=== PATIENT | male | born 1980 | race Caucasian/White ===

== ENCOUNTER 2020-07-22 12:45 | Emergency (ER) | payer OTHER, MEDICAID, SELFPAY ==
[2020-07-22 12:49] VITALS: BP 117/83; PULSE 99; RESP 14; TEMP 36.5; O2SAT 98; BMI 20.4
[2020-07-22 13:15] LABS: Ur Creatinine Normal (Normal); Ur Specific Gravity Normal (Normal); Urine Tetrahydrocannabinol Negative (Negative); Urine pH Normal (Normal)
[2020-07-22 13:16] LABS: UR Morphine/Opiate cutoff 300 Negative (Negative); Urine Amphetamines Negative (Negative); Urine Barbiturates Negative (Negative); Urine Benzodiazepines Negative (Negative); Urine Cocaine Negative (Negative); Urine MDMA Negative (Negative); Urine Methadone Negative (Negative); Urine Methamphetamines Negative (Negative); Urine Oxycodone Negative (Negative); Urine Phencyclidine Negative (Negative); Urine Tricyclic Antidepressant Negative (Negative)
[2020-07-22 13:26] LABS: Add Manual Diff / Slide Review NO; Basophils Absolute Auto 100 /uL (0-100); Basophils Percent Auto 0.6 % (0-2); Eosinophils Absolute Auto 200 /uL (0-450); Eosinophils Percent Auto 2.1 % (2-4); Hematocrit 50.9 % (41-53); Hemoglobin 17.3 g/dL (13.5-17.5); Lymphocytes Absolute Auto 2500 /uL (1100-4500); Lymphocytes Percent Auto 27.4 % (25-40); Mean Corpuscular HGB Conc 33.9 % (30-36); Mean Corpuscular Volume 88.4 fL (80-100); Monocytes Absolute Auto 600 /uL (0-900); Neutrophils Absolute Auto 5900 /uL (1500-7000); Neutrophils Percent Auto 63.9 % (50-75); Platelet Count 191 X10^3/uL (150-400); Red Blood Cell Count 5.76 X10^6/uL (4.5-5.9); Red Cell Distribution Width 14.4 % (11.6-14.8); White Blood Cell Count 9.2 X10^3/uL (4.5-11.0)
--- NOTE | 2020-07-22 13:31 | PC.NURSE ---
Addendum entered by Stephanie Ariza R.N. 07/22/20 14:48: Pt in room talking with [employer]. Pt states it is okay to talk with dad Aries about visit/plan of care. Original Note: Pt drove self to ED, followed by his father in another vehicle. Reports history of Bipolar with depressive episodes increasing/getting worse for the past few months. Pt is crying/tearful, openly talking about situation and verbally expresses wishes to get help if there is something available. Lives in [place], here visiting parents. Pt placed in hospital provided scrubs, belongings placed in ED cabinet, ice water provided and meal tray ordered. 1:1 supervision
[2020-07-22 13:38] LABS: Acetaminophen < 10 ug/mL (10-30); Alanine Aminotransferase 14 IU/L (<50); Albumin 4.4 g/dL (3.5-5.0); Albumin Globulin Ratio 1.5 (1.0-2.8); Alkaline Phosphatase 115 U/L (38-126); Aspartate Aminotransferase 25 IU/L (17-59); BUN Creatinine Ratio 11.9 (6-22); Bilirubin Total 0.5 mg/dL (0.2-1.3); Blood Urea Nitrogen 7 mg/dL (9-20); Calcium 9.3 mg/dL (8.4-10.2); Carbon Dioxide 27 mmol/L (22-32); Chloride 98 mmol/L (98-107); Estimated Glomerular Filt Rate > 60.0 mL/min (>60); Ethanol (ETOH) 142 mg/dL; Globulin 2.9 g/dL (1.7-4.1); Glucose 302 mg/dL (70-100); HEMOLYSIS < 15 (0-50); Potassium 4.3 mmol/L (3.4-5.1); Salicylate < 1.0 mg/dL (<20); Sodium 135 mmol/L (137-145); Total Protein 7.3 g/dL (6.3-8.2)
[2020-07-22] MEDS: INSULIN REGULAR 100 UNIT/ML 3 ML VIAL SUBCUT (13:52)
[2020-07-22 13:56] LABS: COVID19 -Nasal RAPID Negative (Negative)
[2020-07-22 14:03] LABS: Free T4, Direct Thyroxine 1.54 ng/dL (0.78-2.19)
[2020-07-22 14:17] LABS: Thyroid Stimulating Hormone 1.01 uIU/mL (0.47-4.68)
--- NOTE | 2020-07-22 14:49 | ED_ITS ---
HPI - Psych <NEELA Davenport-BC - Last Filed: 07/22/20 15:40> General Chief Complaint: Psychiatric Symptoms Stated Complaint: SI Time Seen by Provider: 07/22/20 13:01 Source: patient Mode of arrival: Ambulatory Limitations: no limitations History of Present Illness HPI Narrative: The patient is a 40-year-old male of bipolar, PTSD, alcohol use disorder, type 1 diabetes who presents with a chief complaint of suicidal ideations with a plan. He states he has a long history of depression, that Ebbs and flows. However the past few months have been especially difficult he states he has stopped taking all of his medications including his psychiatric medications and his insulin. He endorses hopelessness, a plan to drive into a stationary object such as a wall. He states the only reason he came here today is because his father was following him in a car. However he states he is mora ling to take any help we can offer. The patient overtly states that he ?I want to kill myself.He states he stopped taking his Lamictal, BuSpar, insulin for the past few months because he does not care anymore. States he is not eating or drinking well despite his mother cooking him ?delicious food.He states he is not sleeping very well, but is tired all the time. Denies physical pain. Related Data Previous Rx's Medication Instructions Recorded clonazepam [Klonopin] 1 mg PO SEE INSTRUCTIONS #90 tab 08/28/16 moxifloxacin [Vigamox] 1 drp [facility] QID #3 ml 09/11/16 lamotrigine 25 mg chewable 25 mg PO .COMPLEX #0 tab 02/09/18 dispersible tablet Allergies Allergy/AdvReac Type Severity Reaction Status Date / Time No Known Drug Allergies Allergy Verified 07/22/20 12:49 Review of Systems <NEELA Davenport-BC - Last Filed: 07/22/20 15:40> Review of Systems Narrative: GENERAL: Denies chills, fatigue, malaise, fever, sweats. HEENT: Denies sinus pain, ear pain, sore throat, difficulty swallowing, dizziness. RESPIRATORY: Denies dyspnea, cough, wheezing, hemoptysis, sputum. CARDIOVASCULAR: Denies chest pain, palpitations, orthopnea, edema, GASTROINTESTINAL: Denies nausea, vomiting, abdominal pain, diarrhea, constipation, melena. : Denies dysuria, frequency, incontinence, hematuria, urinary retention. MUSCULOSKELETAL: denies weakness, joint pain, or bony pain SKIN: See HPI NEUROLOGIC: Denies weakness, headache, numbness, change in speech, confusion, seizures, incoordination. PSYCHIATRIC: No concerning psychosocial issues. 12 point review of systems is negative except for those stated above Patient History <NEELA Davenport- - Last Filed: 07/22/20 15:40> Social History Smoking Status: Current every day smoker Smoking Status: Current every day smoker alcohol intake frequency: 3 or more drinks per day Alcohol type: beer, wine, hard liquor and other Exam <TRACY DavenportP- - Last Filed: 07/22/20 15:40> Narrative Exam Narrative: GENERAL: This is a well-nourished, well-developed patient, very tearful HEAD: Atraumatic. Normocephalic. No temporal or scalp tenderness. EYES: Pupils equal round and reactive. Extraocular motions intact. No scleral icterus. No injection or drainage. ENT: Nose without bleeding, purulent drainage or septal hematoma. Throat without erythema, tonsillar hypertrophy or exudate. Uvula midline. Airway patent. Poor dentition noted NECK: Trachea midline. No JVD or lymphadenopathy. Supple, nontender, no meningeal signs. CARDIOVASCULAR: Regular rate and rhythm without murmurs, gallops, or rubs. RESPIRATORY: Clear to auscultation. Breath sounds equal bilaterally. No wheezes, rales, or rhonchi. No cough. No increased respiratory effort. No accessory muscle use. GASTROINTESTINAL: Abdomen soft, non-tender, nondistended. No hepato- splenomegaly, or palpable masses. No guarding. EXTREMITIES: No clubbing, cyanosis, or edema. No joint tenderness, effusion, or edema noted. BACK: Nontender without deformity or crepitance. No flank tenderness. NEURO: AOx3. SKIN: No rash or erythema on visible skin Initial Vital Signs Initial Vital Signs: Vital Signs Temperature 97.7 F 07/22/20 12:49 Pulse Rate 99 H 07/22/20 12:49 Respiratory Rate 14 07/22/20 12:49 Blood Pressure 117/83 07/22/20 12:49 Pulse Oximetry 98 07/22/20 12:49 <Keturah Jane DO - Last Filed: 07/22/20 18:31> Initial Vital Signs Initial Vital Signs: Vital Signs Temperature 97.7 F 07/22/20 12:49 Pulse Rate 99 H 07/22/20 12:49 Respiratory Rate 14 07/22/20 12:49 Blood Pressure 117/83 07/22/20 12:49 Pulse Oximetry 98 07/22/20 12:49 Scores <HUNG Davenport - Last Filed: 07/22/20 15:40> GCS Ron coma scale eye opening: Spontaneous Ron coma scale verbal response: Orientated Prentice coma scale motor response: Obey commands Ron coma scale total score: 15 Course <HUNG Davenport - Last Filed: 07/22/20 15:40> Orders Ordered: ED Orders 07/22/20 12:57 Consult to [facility] - Bake Room Worker Stat 07/22/20 13:09 Urine Drug Screen, Rapid Stat 07/22/20 13:22 Acetaminophen Stat Complete Blood Count AUTO DIFF Stat Comprehensive Metabolic Panel Stat Ethanol (ETOH) Stat Free T4, Direct Thyroxine Stat Salicylate Stat Thyroid Stimulating Hormone Stat 07/22/20 13:35 COVID19 Stat Discontinued Medications Insulin Human Regular (Insulin Regular 100 Unit/Ml 3 Ml Vial) 3 unit SUBCUT NOW ONE Stop: 07/22/20 13:43 Last Admin: 07/22/20 13:52 Dose: 3 unit Documented by: NATALY Cosigned by: REYNALDO Lorazepam (Lorazepam 0.5 Mg Tablet) 0.5 mg PO NOW ONE Stop: 07/22/20 13:57 Last Admin: 07/22/20 15:39 Dose: 0.5 mg Documented by: NATALY Lorazepam (Lorazepam 0.5 Mg Tablet) 1 mg PO NOW ONE Stop: 07/22/20 16:53 Last Admin: 07/22/20 16:55 Dose: 1 mg Documented by: NATALY Nicotine (Nicotine 21 Mg Patch) 21 mg TOP NOW ONE Stop: 07/22/20 15:26 Last Admin: 07/22/20 15:39 Dose: 21 mg Documented by: NATALY Vital Signs Vital signs: Vital Signs - 8 hr 07/22/20 12:49 07/22/20 16:09 Temperature 97.7 F 97.6 F Pulse Rate 99 H 91 H Respiratory Rate 14 18 Blood Pressure 117/83 119/77 Pulse Oximetry 98 97 <Keturah Jane DO - Last Filed: 07/22/20 18:31> Orders Ordered: ED Orders 07/22/20 12:57 Consult to [facility] [employer] [facility] - Bake Room Worker Stat 07/22/20 13:09 Urine Drug Screen, Rapid Stat 07/22/20 13:22 Acetaminophen Stat Complete Blood Count AUTO DIFF Stat Comprehensive Metabolic Panel Stat Ethanol (ETOH) Stat Free T4, Direct Thyroxine Stat Salicylate Stat Thyroid Stimulating Hormone Stat 07/22/20 13:35 COVID19 Stat Discontinued Medications Insulin Human Regular (Insulin Regular 100 Unit/Ml 3 Ml Vial) 3 unit SUBCUT NOW ONE Stop: 07/22/20 13:43 Last Admin: 07/22/20 13:52 Dose: 3 unit Documented by: NATALY Cosigned by: REYNALDO Lorazepam (Lorazepam 0.5 Mg Tablet) 0.5 mg PO NOW ONE Stop: 07/22/20 13:57 Last Admin: 07/22/20 15:39 Dose: 0.5 mg Documented by: NATALY Lorazepam (Lorazepam 0.5 Mg Tablet) 1 mg PO NOW ONE Stop: 07/22/20 16:53 Last Admin: 07/22/20 16:55 Dose: 1 mg Documented by: NATALY Nicotine (Nicotine 21 Mg Patch) 21 mg TOP NOW ONE Stop: 07/22/20 15:26 Last Admin: 07/22/20 15:39 Dose: 21 mg Documented by: NATALY Vital Signs Vital signs: Vital Signs - 8 hr 07/22/20 12:49 07/22/20 16:09 Temperature 97.7 F 97.6 F Pulse Rate 99 H 91 H Respiratory Rate 14 18 Blood Pressure 117/83 119/77 Pulse Oximetry 98 97 MDM - Psych <HUNG Davenport - Last Filed: 07/22/20 15:40> Lab Data Result diagrams: 07/22/20 13:22 07/22/20 13:22 Labs: Lab Results 07/22/20 07/22/20 07/22/20 Range/Units 13:09 13:22 13:22 WBC 9.2 (4.5-11.0) X10^3/uL RBC 5.76 (4.5-5.9) X10^6/uL Hgb 17.3 (13.5-17.5) g/dL Hct 50.9 (41-53) % MCV 88.4 (80-100) fL MCH 30.0 (26-34) PG MCHC 33.9 (30-36) % RDW 14.4 (11.6-14.8) % Plt Count 191 (150-400) X10^3/uL Neut % (Auto) 63.9 (50-75) % Lymph % (Auto) 27.4 (25-40) % [place] % (Auto) 6.0 (3-14) % Eos % (Auto) 2.1 (2-4) % Baso % (Auto) 0.6 (0-2) % Neut # (Auto) 5900 (8034-9933) /uL Lymph # (Auto) 2500 (0443-1491) /uL [place] # (Auto) 600 (0-900) /uL Eos # (Auto) 200 (0-450) /uL Baso # (Auto) 100 (0-100) /uL Sodium 135 L (137-145) mmol/L Potassium 4.3 (3.4-5.1) mmol/L Chloride 98 (98-107) mmol/L Carbon Dioxide 27 (22-32) mmol/L BUN 7 L (9-20) mg/dL Creatinine 0.59 L (0.66-1.25) mg/dL Estimated GFR > 60.0 (>60) mL/min BUN/Creatinine Ratio 11.9 (6-22) Glucose 302 H (70-100) mg/dL Calcium 9.3 (8.4-10.2) mg/dL Total Bilirubin 0.5 (0.2-1.3) mg/dL AST 25 (17-59) IU/L ALT 14 (<50) IU/L Alkaline Phosphatase 115 (38-126) U/L Total Protein 7.3 (6.3-8.2) g/dL Albumin 4.4 (3.5-5.0) g/dL Globulin 2.9 (1.7-4.1) g/dL Albumin/Globulin Ratio 1.5 (1.0-2.8) TSH (0.47-4.68) uIU/mL Free T4 (0.78-2.19) ng/dL Salicylates < 1.0 (<20) mg/dL U Opiates 300ng/mL cut Negative (Negative) Ur Oxycodone Screen Negative (Negative) Urine Methadone Screen Negative (Negative) Acetaminophen < 10 L (10-30) ug/mL Ur Barbiturates Screen Negative (Negative) U Tricyclic Antidepress Negative (Negative) Ur Phencyclidine Scrn Negative (Negative) Ur Amphetamines Screen Negative (Negative) U Methamphetamines Scrn Negative (Negative) Ur MDMA Scrn (Ecstasy) Negative (Negative) U Benzodiazepines Scrn Negative (Negative) Urine Cocaine Screen Negative (Negative) U Marijuana (THC) Screen Negative (Negative) Ethyl Alcohol 142 H ( - 10) mg/dL SARS-CoV-2 (PCR) (Negative) 07/22/20 07/22/20 Range/Units 13:22 13:35 WBC (4.5-11.0) X10^3/uL RBC (4.5-5.9) X10^6/uL Hgb (13.5-17.5) g/dL Hct (41-53) % MCV (80-100) fL MCH (26-34) PG MCHC (30-36) % RDW (11.6-14.8) % Plt Count (150-400) X10^3/uL Neut % (Auto) (50-75) % Lymph % (Auto) (25-40) % [place] % (Auto) (3-14) % Eos % (Auto) (2-4) % Baso % (Auto) (0-2) % Neut # (Auto) (3345-3786) /uL Lymph # (Auto) (1775-0564) /uL [place] # (Auto) (0-900) /uL Eos # (Auto) (0-450) /uL Baso # (Auto) (0-100) /uL Sodium (137-145) mmol/L Potassium (3.4-5.1) mmol/L Chloride (98-107) mmol/L Carbon Dioxide (22-32) mmol/L BUN (9-20) mg/dL Creatinine (0.66-1.25) mg/dL Estimated GFR (>60) mL/min BUN/Creatinine Ratio (6-22) Glucose (70-100) mg/dL Calcium (8.4-10.2) mg/dL Total Bilirubin (0.2-1.3) mg/dL AST (17-59) IU/L ALT (<50) IU/L Alkaline Phosphatase (38-126) U/L Total Protein (6.3-8.2) g/dL Albumin (3.5-5.0) g/dL Globulin (1.7-4.1) g/dL Albumin/Globulin Ratio (1.0-2.8) TSH 1.01 (0.47-4.68) uIU/mL Free T4 1.54 (0.78-2.19) ng/dL Salicylates (<20) mg/dL U Opiates 300ng/mL cut (Negative) Ur Oxycodone Screen (Negative) Urine Methadone Screen (Negative) Acetaminophen (10-30) ug/mL Ur Barbiturates Screen (Negative) U Tricyclic Antidepress (Negative) Ur Phencyclidine Scrn (Negative) Ur Amphetamines Screen (Negative) U Methamphetamines Scrn (Negative) Ur MDMA Scrn (Ecstasy) (Negative) U Benzodiazepines Scrn (Negative) Urine Cocaine Screen (Negative) U Marijuana (THC) Screen (Negative) Ethyl Alcohol ( - 10) mg/dL SARS-CoV-2 (PCR) Negative (Negative) Point of Care Testing Glucose POC 209 Urine Dip Bedside Urine Glucose 1000 mg/dl Bedside Urine Bilirubin - Negative Bedside Urine Ketone - Negative Urine Specific Felicity 1.015 Bedside Urine Occult Blood - Negative Bedside Urine pH 6 Bedside Urine Protein - Negative Bedside Urine Urobilinogen - Negative Bedside Urine Nitrite - Negative Bedside Urine Leukocytes - Negative Esterase MDM Narrative Medical decision making narrative: The patient is a 40-year-old male with history of bipolar disorder, alcohol abuse, PTSD who presents with a chief complaint of suicidal ideation with a plan to drive into a stationary object. He is tearful, voluntary at this point. However he is high risk given his history, the fact that he has been off of his medications for several months. He was seen and evaluated by Estevan NAVA, who feels as though voluntary placement is needed at this time. I am in accordance with this. I would not feel comfortable allowing the patient to leave at this point time given his hopelessness, history, and suicidal ideation with plan. Clearance labs were d rawn, coronavirus test completed. Patient signed out to Dr Jane at 15:40 pending placement. <Keturah Jane, DO - Last Filed: 07/22/20 18:31> Lab Data Labs: Lab Results 07/22/20 07/22/20 07/22/20 Range/Units 13:09 13:22 13:22 WBC 9.2 (4.5-11.0) X10^3/uL RBC 5.76 (4.5-5.9) X10^6/uL Hgb 17.3 (13.5-17.5) g/dL Hct 50.9 (41-53) % MCV 88.4 (80-100) fL MCH 30.0 (26-34) PG MCHC 33.9 (30-36) % RDW 14.4 (11.6-14.8) % Plt Count 191 (150-400) X10^3/uL Neut % (Auto) 63.9 (50-75) % Lymph % (Auto) 27.4 (25-40) % [place] % (Auto) 6.0 (3-14) % Eos % (Auto) 2.1 (2-4) % Baso % (Auto) 0.6 (0-2) % Neut # (Auto) 5900 (2944-1996) /uL Lymph # (Auto) 2500 (3838-8955) /uL [place] # (Auto) 600 (0-900) /uL Eos # (Auto) 200 (0-450) /uL Baso # (Auto) 100 (0-100) /uL Sodium 135 L (137-145) mmol/L Potassium 4.3 (3.4-5.1) mmol/L Chloride 98 (98-107) mmol/L Carbon Dioxide 27 (22-32) mmol/L BUN 7 L (9-20) mg/dL Creatinine 0.59 L (0.66-1.25) mg/dL Estimated GFR > 60.0 (>60) mL/min BUN/Creatinine Ratio 11.9 (6-22) Glucose 302 H (70-100) mg/dL Calcium 9.3 (8.4-10.2) mg/dL Total Bilirubin 0.5 (0.2-1.3) mg/dL AST 25 (17-59) IU/L ALT 14 (<50) IU/L Alkaline Phosphatase 115 (38-126) U/L Total Protein 7.3 (6.3-8.2) g/dL Albumin 4.4 (3.5-5.0) g/dL Globulin 2.9 (1.7-4.1) g/dL Albumin/Globulin Ratio 1.5 (1.0-2.8) TSH (0.47-4.68) uIU/mL Free T4 (0.78-2.19) ng/dL Salicylates < 1.0 (<20) mg/dL U Opiates 300ng/mL cut Negative (Negative) Ur Oxycodone Screen Negative (Negative) Urine Methadone Screen Negative (Negative) Acetaminophen < 10 L (10-30) ug/mL Ur Barbiturates Screen Negative (Negative) U Tricyclic Antidepress Negative (Negative) Ur Phencyclidine Scrn Negative (Negative) Ur Amphetamines Screen Negative (Negative) U Methamphetamines Scrn Negative (Negative) Ur MDMA Scrn (Ecstasy) Negative (Negative) U Benzodiazepines Scrn Negative (Negative) Urine Cocaine Screen Negative (Negative) U Marijuana (THC) Screen Negative (Negative) Ethyl Alcohol 142 H ( - 10) mg/dL SARS-CoV-2 (PCR) (Negative) 07/22/20 07/22/20 Range/Units 13:22 13:35 WBC (4.5-11.0) X10^3/uL RBC (4.5-5.9) X10^6/uL Hgb (13.5-17.5) g/dL Hct (41-53) % MCV (80-100) fL MCH (26-34) PG MCHC (30-36) % RDW (11.6-14.8) % Plt Count (150-400) X10^3/uL Neut % (Auto) (50-75) % Lymph % (Auto) (25-40) % [place] % (Auto) (3-14) % Eos % (Auto) (2-4) % Baso % (Auto) (0-2) % Neut # (Auto) (8436-1608) /uL Lymph # (Auto) (2906-4270) /uL [place] # (Auto) (0-900) /uL Eos # (Auto) (0-450) /uL Baso # (Auto) (0-100) /uL Sodium (137-145) mmol/L Potassium (3.4-5.1) mmol/L Chloride (98-107) mmol/L Carbon Dioxide (22-32) mmol/L BUN (9-20) mg/dL Creatinine (0.66-1.25) mg/dL Estimated GFR (>60) mL/min BUN/Creatinine Ratio (6-22) Glucose (70-100) mg/dL Calcium (8.4-10.2) mg/dL Total Bilirubin (0.2-1.3) mg/dL AST (17-59) IU/L ALT (<50) IU/L Alkaline Phosphatase (38-126) U/L Total Protein (6.3-8.2) g/dL Albumin (3.5-5.0) g/dL Globulin (1.7-4.1) g/dL Albumin/Globulin Ratio (1.0-2.8) TSH 1.01 (0.47-4.68) uIU/mL Free T4 1.54 (0.78-2.19) ng/dL Salicylates (<20) mg/dL U Opiates 300ng/mL cut (Negative) Ur Oxycodone Screen (Negative) Urine Methadone Screen (Negative) Acetaminophen (10-30) ug/mL Ur Barbiturates Screen (Negative) U Tricyclic Antidepress (Negative) Ur Phencyclidine Scrn (Negative) Ur Amphetamines Screen (Negative) U Methamphetamines Scrn (Negative) Ur MDMA Scrn (Ecstasy) (Negative) U Benzodiazepines Scrn (Negative) Urine Cocaine Screen (Negative) U Marijuana (THC) Screen (Negative) Ethyl Alcohol ( - 10) mg/dL SARS-CoV-2 (PCR) Negative (Negative) Point of Care Testing Glucose POC 209 Urine Dip Bedside Urine Glucose 1000 mg/dl Bedside Urine Bilirubin - Negative Bedside Urine Ketone - Negative Urine Specific Felicity 1.015 Bedside Urine Occult Blood - Negative Bedside Urine pH 6 Bedside Urine Protein - Negative Bedside Urine Urobilinogen - Negative Bedside Urine Nitrite - Negative Bedside Urine Leukocytes - Negative Esterase MDM Narrative Medical decision making narrative: Patient remains voluntary and has been accepted at [facility]. He did require some Ativan to help with anxiety Signed out to Dr. Rajput Discharge Plan Departure Prescriptions: No Action clonazepam [Klonopin] 1 MG tablet 1 mg PO SEE INSTRUCTIONS Qty: 90 RF: 1 moxifloxacin [Vigamox] 0.5 % drops 1 drp [facility] QID Qty: 3 RF: 0 lamotrigine 25 mg tablet, chewable dispersible 25 mg PO .COMPLEX Qty: 0 RF: 2 <Keturah Jane, DO - Last Filed: 07/22/20 18:31> Cosign ED Attending Cossonamature Attestation: I was immediately available in the department for consultation. Documentation has been reviewed. I agree with assessment and plan.
[2020-07-22] MEDS: LORazepam 0.5 MG TABLET PO (15:39)
[2020-07-22] MEDS: NICOTINE 21 MG PATCH TOP (15:39)
--- NOTE | 2020-07-22 15:55 | CM.SWNOTE ---
SENIOR IT ENGINEER Assessment SENIOR IT ENGINEER - Bait Packer Assessment SENIOR IT ENGINEER - Bait Packer Assessment Start: 07/22/20 15:27 Freq: Status: Active Protocol: Document 07/22/20 15:27 BEATRIS (Rec: 07/22/20 15:55 BEATRIS [id number]) SENIOR IT ENGINEER/Bait Packer Assessment Time Spent with Patient Start date 07/22/20 Visit Start Time 14:00 End date 07/22/20 Visit End Time 15:25 Total time Care Management spent on 85 patient visit-in minutes Mental Health Screening Include Onset, Duration, Intensity Presenting Problem Patient presents to ED for stated complaint of SI. Patient states he was planning to drive his car at 120mph into a solid structure. Patient explains was in the car and was about to attempt, but realized his father was following him in a different vehicle, and drove to the ED instead. Patient endorses hopelessness, depression, and seeing no purpose in living. Patient offers if someone handed me a gun and showed me how to use it, I would be . Precipitating Event(s) Patient has attempted suicide two other times in past 4 years. One attempt was with pills, and one was an attempt to drive his car into a structure. Patient struggles with gambling addiction and has lost more money than I've made to online gambling. Patient has hx of ETOH abuse, and relapsed after 6 months of sobriety in April,. Patient had consumed ETOH prior to arrival at ED. Patient Strengths Patient is polite, open, and very articulate, and shows sound insight into current presentation. Current Behavioral Health Provider(s) None. Include Facility, Provider, Ph. # Psych. Hx Mental Health and Chemical Patient has hx of depression, Dependency diagnosed bipolar, anxiety, and PTSD. Patient endorses that he does have issues with compulsive behavior, gambling addiction. Patient reports he has not taken medication for his psychiatric concerns in multiple months. Patient defines compulsive behavior as not being able to stop an action once he starts it and provides examples of staying up for 4 days straight writing a book or staying up for days gambling and losing. Patient states this compulsive behavior is self destructive. Patient has hx of ETOH abuse. Family Hx of Behavioral Abuse None. Psychiatric Hospitalizations (date(s)/ None. location) Psychosocial information & Support Patient is a 40 y/o male who Systems lives with his parents. 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 Patient explains that he loves his parents, but feels tension surrounding the idea that he has remained alive to spare them grief. School/Work Patient is currently unemployed. Mental Status Orientation (Person/Place/Time) Oriented x3 Stated Mood I don't want to be alive Affect (Congruent with Mood?) slightly euthymic, full range, slight incongruence Thought Content - Specify/Describe No obsessions, hallucinations Obsessions, Delusions, Hallucinations or delusions observed or reported. Thought Processes (Rkzlhun-Oqejvykn-Jlpc Logical-detailed Cbnxcmok-Cqevaxzc-Pklblzpzgz- Hkfvyqwmtiuioc-Zhnjrra-Kxjbhdgvpncs- Thought Blocking) Speech (Bebqqm-Pceu-Eyaglpi-Rapid-Soft- Normal Loud-Pressured) Motor (Btzpgg-Nidnbqunq-Cxzg-Other) Normal Insight (Lqrz-Xcbe-Ipdj/Limited) Good Judgement (Nksk-Nxpm-Dbmc/Limited) Poor Impulse Control (Adequate-Impaired) Adequate in interview Memory (Deijqgszh-Nbjrbb-Wotplf, Intact for interview, not Impaired-Intact) formally assessed Concentration (Intact-Impaired) Intact Attention (Intact-Impaired) Intact Behavior (Appropriate-Inappropriate) Appropriate Risk Assessment Suicidal Ideation (Plan) Yes Homicidal Ideation (Plan) No Comment Patient denies HI. Patient endorses SI with plan and means. Patient presents to this ED shortly after attempting suicide, but plan was thwarted due to father following patient's vehicle. Patient states he has had a plan to crash his car into a solid structure at high speed for 4 years. Patient explains that this is his method of choice because if my survival instinct kicks in, it will be too late, and that' s what I want. Intervention Intervention SENIOR IT ENGINEER meets with patient. 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 Patient reports he has felt suicidal on and off for the past 10 years, but states that it has been getting significantly worse during previous months. Patient reports previous suicide attempts, desire to discontinue living, and plan with means. SENIOR IT ENGINEER and patient discuss voluntary inpatient treatment. Patient states he is agreeable to voluntary placement at a hospital and is wanting help. At this time, due to suicidality with plan to use lethal means, lack of use of prescribed psychiatric medication, previous attempts, and patient-described compulsive self-destructive behavior, it is the recommendation of this SENIOR IT ENGINEER that patient receive inpatient hospitalization. SENIOR IT ENGINEER reviews this with ED providers Dr. Jane and BANG Davenport, both indicate agreement and understanding. Plan RA Plan SENIOR IT ENGINEER will seek inpatient bed for patient. BRANDY Flanagan
[2020-07-22 16:09] VITALS: BP 119/77; PULSE 91; RESP 18; TEMP 36.4; O2SAT 97
--- NOTE | 2020-07-22 16:19 | CM.SWNOTE ---
Addendum entered by Estevan Potts 07/22/20 18:14: CABINET FINISHER receives return call from Ila at [facility] informing CABINET FINISHER that patient has been accepted for admission to the co-occurring unit at [facility]. Details of transfer are placed in comments section of EMR and listed below: Accepted to [facility]. Accepting provider: Dr. Brown. Intake contact: Ila. Nurse to Nurse: [phone]. Check in time: 2230. CABINET FINISHER updates patient, RN Stephanie, DAKOTA Perez, and ED providers Dr. Rajput and Dr. Jane. A AND P MECHANIC/DAKOTA to arrange transport. Patient requests that patient's father-Aries be contacted and updated on plan, and assist patient with getting toiletries out of car. Aries's phone is [phone]. CABINET FINISHER calls Aries and leaves voicemail with transfer time and requests call back at [phone]. Pl: Patient to transfer to [facility] for inpatient psychiatric stabilization. BRANDY Flanagan Original Note: CABINET FINISHER note Following assessment, CABINET FINISHER calls [facility] seeking placement for patient. [facility] states they may be able to screen today, but would be unable to accept patient until tomorrow. CABINET FINISHER then calls [facility] and speaks to Ila. Ila completes phone screening and requests clinicals be faxed to [facility]. Ila informs CABINET FINISHER that [facility] does have open beds and will be able to screen patient today. CABINET FINISHER faxes clinical packet to [facility]. Pl: Coordinate with [facility] for potential transfer of care. BRANDY Flanagan
[2020-07-22] MEDS: LORazepam 0.5 MG TABLET 1 MG PO (16:55)
--- NOTE | 2020-07-22 18:00 | PC.NURSE ---
Patient has been dozing/sleeping intermittently since 15:45.
[2020-07-22 20:15] VITALS: BP 119/80; PULSE 101; RESP 17; TEMP 37.3; O2SAT 97
--- NOTE | 2020-07-22 20:18 | PC.NURSE ---
Patients brother is in room visiting and having a very serious conversation with him about his current mental status and potential repercussions his actions can cause.
--- NOTE | 2020-07-22 22:28 | ED_ITS ---
HPI - Psych General Chief Complaint: Psychiatric Symptoms Stated Complaint: SI Time Seen by Provider: 07/22/20 13:01 Source: patient Mode of arrival: Ambulatory Related Data Previous Rx's Medication Instructions Recorded clonazepam [Klonopin] 1 mg PO SEE INSTRUCTIONS #90 tab 08/28/16 moxifloxacin [Vigamox] 1 drp OPHTH QID #3 ml 09/11/16 lamotrigine 25 mg chewable 25 mg PO .COMPLEX #0 tab 02/09/18 dispersible tablet Allergies Allergy/AdvReac Type Severity Reaction Status Date / Time No Known Drug Allergies Allergy Verified 07/22/20 12:49 Patient History Social History Smoking Status: Current every day smoker Smoking Status: Current every day smoker alcohol intake frequency: 3 or more drinks per day Alcohol type: beer, wine, hard liquor and other Exam Initial Vital Signs Initial Vital Signs: Vital Signs Temperature 97.7 F 07/22/20 12:49 Pulse Rate 99 H 07/22/20 12:49 Respiratory Rate 14 07/22/20 12:49 Blood Pressure 117/83 07/22/20 12:49 Pulse Oximetry 98 07/22/20 12:49 Course Orders Ordered: ED Orders 07/22/20 13:35 COVID19 Stat Discontinued Medications Insulin Human Regular (Insulin Regular 100 Unit/Ml 3 Ml Vial) 3 unit SUBCUT NOW ONE Stop: 07/22/20 13:43 Last Admin: 07/22/20 13:52 Dose: 3 unit Documented by: NATALY Cosigned by: REYNALDO Lorazepam (Lorazepam 0.5 Mg Tablet) 0.5 mg PO NOW ONE Stop: 07/22/20 13:57 Last Admin: 07/22/20 15:39 Dose: 0.5 mg Documented by: NATALY Lorazepam (Lorazepam 0.5 Mg Tablet) 1 mg PO NOW ONE Stop: 07/22/20 16:53 Last Admin: 07/22/20 16:55 Dose: 1 mg Documented by: NATALY Nicotine (Nicotine 21 Mg Patch) 21 mg TOP NOW ONE Stop: 07/22/20 15:26 Last Admin: 07/22/20 15:39 Dose: 21 mg Documented by: NATALY Vital Signs Vital signs: Vital Signs - 8 hr 07/22/20 16:09 07/22/20 20:15 Temperature 97.6 F 99.1 F Pulse Rate 91 H 101 H Respiratory Rate 18 17 Blood Pressure 119/77 119/80 Pulse Oximetry 97 97 MDM - Psych Lab Data Result diagrams: 07/22/20 13:22 07/22/20 13:22 Labs: Lab Results 07/22/20 07/22/20 07/22/20 Range/Units 13:09 13:22 13:22 WBC 9.2 (4.5-11.0) X10^3/uL RBC 5.76 (4.5-5.9) X10^6/uL Hgb 17.3 (13.5-17.5) g/dL Hct 50.9 (41-53) % MCV 88.4 (80-100) fL MCH 30.0 (26-34) PG MCHC 33.9 (30-36) % RDW 14.4 (11.6-14.8) % Plt Count 191 (150-400) X10^3/uL Neut % (Auto) 63.9 (50-75) % Lymph % (Auto) 27.4 (25-40) % [place] % (Auto) 6.0 (3-14) % Eos % (Auto) 2.1 (2-4) % Baso % (Auto) 0.6 (0-2) % Neut # (Auto) 5900 (3101-2862) /uL Lymph # (Auto) 2500 (5890-9306) /uL [place] # (Auto) 600 (0-900) /uL Eos # (Auto) 200 (0-450) /uL Baso # (Auto) 100 (0-100) /uL Sodium 135 L (137-145) mmol/L Potassium 4.3 (3.4-5.1) mmol/L Chloride 98 (98-107) mmol/L Carbon Dioxide 27 (22-32) mmol/L BUN 7 L (9-20) mg/dL Creatinine 0.59 L (0.66-1.25) mg/dL Estimated GFR > 60.0 (>60) mL/min BUN/Creatinine Ratio 11.9 (6-22) Glucose 302 H (70-100) mg/dL Calcium 9.3 (8.4-10.2) mg/dL Total Bilirubin 0.5 (0.2-1.3) mg/dL AST 25 (17-59) IU/L ALT 14 (<50) IU/L Alkaline Phosphatase 115 (38-126) U/L Total Protein 7.3 (6.3-8.2) g/dL Albumin 4.4 (3.5-5.0) g/dL Globulin 2.9 (1.7-4.1) g/dL Albumin/Globulin Ratio 1.5 (1.0-2.8) TSH (0.47-4.68) uIU/mL Free T4 (0.78-2.19) ng/dL Salicylates < 1.0 (<20) mg/dL U Opiates 300ng/mL cut Negative (Negative) Ur Oxycodone Screen Negative (Negative) Urine Methadone Screen Negative (Negative) Acetaminophen < 10 L (10-30) ug/mL Ur Barbiturates Screen Negative (Negative) U Tricyclic Antidepress Negative (Negative) Ur Phencyclidine Scrn Negative (Negative) Ur Amphetamines Screen Negative (Negative) U Methamphetamines Scrn Negative (Negative) Ur MDMA Scrn (Ecstasy) Negative (Negative) U Benzodiazepines Scrn Negative (Negative) Urine Cocaine Screen Negative (Negative) U Marijuana (THC) Screen Negative (Negative) Ethyl Alcohol 142 H ( - 10) mg/dL SARS-CoV-2 (PCR) (Negative) 07/22/20 07/22/20 Range/Units 13:22 13:35 WBC (4.5-11.0) X10^3/uL RBC (4.5-5.9) X10^6/uL Hgb (13.5-17.5) g/dL Hct (41-53) % MCV (80-100) fL MCH (26-34) PG MCHC (30-36) % RDW (11.6-14.8) % Plt Count (150-400) X10^3/uL Neut % (Auto) (50-75) % Lymph % (Auto) (25-40) % [place] % (Auto) (3-14) % Eos % (Auto) (2-4) % Baso % (Auto) (0-2) % Neut # (Auto) (7423-8266) /uL Lymph # (Auto) (9275-7151) /uL [place] # (Auto) (0-900) /uL Eos # (Auto) (0-450) /uL Baso # (Auto) (0-100) /uL Sodium (137-145) mmol/L Potassium (3.4-5.1) mmol/L Chloride (98-107) mmol/L Carbon Dioxide (22-32) mmol/L BUN (9-20) mg/dL Creatinine (0.66-1.25) mg/dL Estimated GFR (>60) mL/min BUN/Creatinine Ratio (6-22) Glucose (70-100) mg/dL Calcium (8.4-10.2) mg/dL Total Bilirubin (0.2-1.3) mg/dL AST (17-59) IU/L ALT (<50) IU/L Alkaline Phosphatase (38-126) U/L Total Protein (6.3-8.2) g/dL Albumin (3.5-5.0) g/dL Globulin (1.7-4.1) g/dL Albumin/Globulin Ratio (1.0-2.8) TSH 1.01 (0.47-4.68) uIU/mL Free T4 1.54 (0.78-2.19) ng/dL Salicylates (<20) mg/dL U Opiates 300ng/mL cut (Negative) Ur Oxycodone Screen (Negative) Urine Methadone Screen (Negative) Acetaminophen (10-30) ug/mL Ur Barbiturates Screen (Negative) U Tricyclic Antidepress (Negative) Ur Phencyclidine Scrn (Negative) Ur Amphetamines Screen (Negative) U Methamphetamines Scrn (Negative) Ur MDMA Scrn (Ecstasy) (Negative) U Benzodiazepines Scrn (Negative) Urine Cocaine Screen (Negative) U Marijuana (THC) Screen (Negative) Ethyl Alcohol ( - 10) mg/dL SARS-CoV-2 (PCR) Negative (Negative) Point of Care Testing Glucose POC 209 Urine Dip Bedside Urine Glucose 1000 mg/dl Bedside Urine Bilirubin - Negative Bedside Urine Ketone - Negative Urine Specific Miranda 1.015 Bedside Urine Occult Blood - Negative Bedside Urine pH 6 Bedside Urine Protein - Negative Bedside Urine Urobilinogen - Negative Bedside Urine Nitrite - Negative Bedside Urine Leukocytes - Negative Esterase Discharge Plan Departure Patient Disposition: [facility] Clinical Impression: Suicidal ideation Prescriptions: No Action clonazepam [Klonopin] 1 MG tablet 1 mg PO SEE INSTRUCTIONS Qty: 90 RF: 1 moxifloxacin [Vigamox] 0.5 % drops 1 drp OPHTH QID Qty: 3 RF: 0 lamotrigine 25 mg tablet, chewable dispersible 25 mg PO .COMPLEX Qty: 0 RF: 2
== END 2020-07-22 21:22 | disposition short-term general hospital (02) ==
PROVIDERS: Nurse Practitioner Family; Emergency Provider Emergency Medicine
DX: R45.851 Suicidal ideations (principal); F10.129 Alcohol abuse with intoxication, unspecified; Y90.6 Blood alcohol level of 120-199 mg/100 ml; F31.9 Bipolar disorder, unspecified; E10.8 Type 1 diabetes mellitus with unspecified complications; F43.10 Post-traumatic stress disorder, unspecified; Z20.822 Contact with and (suspected) exposure to COVID-19
CPT/HCPCS: 36415; 80053; 80305; 80320; 80329; 81003; 82962; 84439; 84443; 85025; 87635; 96372; 99284; C9803; G0480

== ENCOUNTER 2020-08-06 16:44 | Emergency (ER) | payer OTHER, MEDICAID, SELFPAY ==
[2020-08-06 16:56] VITALS: BP 151/97; PULSE 118; RESP 16; TEMP 37.2; O2SAT 97; BMI 20.4
--- NOTE | 2020-08-06 17:16 | PC.NURSE ---
Spoke w/ Sheron (intake @ [facility]) who stated they are screening for tomorrow (Monday 08/07) They state that the alcohol / detox issues would not be a barrier. They asked that the provider medical clearance information be faxed to [phone] when available.
--- NOTE | 2020-08-06 17:20 | ED_ITS ---
HPI - Psych <Keturah Jane DO - Last Filed: 08/14/20 10:26> General Chief Complaint: Psychiatric Symptoms Stated Complaint: suicidal Time Seen by Provider: 08/06/20 16:47 Source: patient Mode of arrival: Ambulatory Limitations: no limitations History of Present Illness HPI Narrative: Patient is a 40-year-old male with history of type 1 diabetes, bipolar PTSD suicidal ideation depression presenting today voluntarily for suicidal ideation. July 22 where he was then sent to the [facility]. He states he was there for 4 days and then he left. He says he does not remember much of what happened may be partially because he was detoxing. He has since drink heavily since then. He has not had an alcoholic drink for about 13-15 hours. He has frequent thoughts of suicide but today the thoughts are quite severe, he states that he would drive his car into a stationary object as fast as he could. He is requesting placement at [facility] because they allow people to smoke. He has significant stressors but is unwilling to share them with me. He states that while he is drinking heavily he is not good about taking his medications. MD complaint: suicidal ideation and feels depressed History of same: Yes Relieving factors: none Related Data Home Medications Medication Instructions Recorded Confirmed lamotrigine 150 mg PO BEDTIME 08/06/20 08/06/20 Previous Rx's Medication Instructions Recorded clonazepam [Klonopin] 1 mg PO SEE INSTRUCTIONS #90 tab 08/28/16 Allergies Allergy/AdvReac Type Severity Reaction Status Date / Time No Known Drug Allergies Allergy Verified 07/22/20 12:49 Review of Systems <DO Beck Nugent Last Filed: 08/14/20 10:26> Review of Systems Narrative: GENERAL: Denies chills, fatigue, malaise, fever, sweats, travel HEENT: Denies sinus pain, ear pain, sore throat, difficulty swallowing, neck pain RESPIRATORY: Denies dyspnea, cough, wheezing, hemoptysis, sputum. CARDIOVASCULAR: Denies chest pain, palpitations, orthopnea, edema GASTROINTESTINAL: Denies nausea, vomiting, abdominal pain, diarrhea, constipation, melena. : Denies dysuria, frequency, incontinence, hematuria, urinary retention, flank pain. MUSCULOSKELETAL: Denies weakness, joint pain, or bony pain SKIN: No rash, no erythema, no pruritus NEUROLOGIC: Denies weakness, dizziness, headache, numbness, change in speech, confusion PSYCHIATRIC: See HPI 12 point review of systems is negative except for those stated above and HPI Patient History <Keturah Jane DO - Last Filed: 08/14/20 10:26> Medical History Alcoholism Bipolar affective disorder, current episode mild Diabetes Post traumatic stress disorder (PTSD) Social History Smoking Status: Current every day smoker Smoking Status: Current every day smoker alcohol intake frequency: 3 or more drinks per day Alcohol type: beer, wine, hard liquor and other Exam <Keturah Jane DO - Last Filed: 08/14/20 10:26> Initial Vital Signs Initial Vital Signs: Vital Signs Temperature 98.9 F 08/06/20 16:56 Pulse Rate 118 H 08/06/20 16:56 Respiratory Rate 16 08/06/20 16:56 Blood Pressure 151/97 H 08/06/20 16:56 Pulse Oximetry 97 08/06/20 16:56 GENERAL: Well-appearing, well-nourished and in no acute distress. CARDIOVASCULAR: peripheral pulses in tact, cap refill <2 sec RESPIRATORY: No respiratory distress, speaks in full sentences without difficulty EXTREMITIES: Normal range of motion, no clubbing or edema. Neurovascularly intact NEUROLOGICAL: Cranial nerves II through XII grossly intact. Normal gait and speech. SKIN: Warm, dry, no petechiae, no rashes or lesions. <Christina Escudero MD - Last Filed: 08/06/20 23:38> Narrative Exam Narrative: Patient independently examined Awake alert appropriate able speak in full sentences without pressured speech Mild tachycardia after 2 mg of oral Ativan Still complains of suicidal thoughts, anxiety Notes feelings of self clothing and hate that continue to progress. Continues to deny hallucinations Minimal physical signs of acute alcohol withdrawal Initial Vital Signs Initial Vital Signs: Vital Signs Temperature 98.9 F 08/06/20 16:56 Pulse Rate 118 H 08/06/20 16:56 Respiratory Rate 16 08/06/20 16:56 Blood Pressure 151/97 H 08/06/20 16:56 Pulse Oximetry 97 08/06/20 16:56 <Kyle [place], DO - Last Filed: 08/08/20 09:34> Initial Vital Signs Initial Vital Signs: Vital Signs Temperature 98.9 F 08/06/20 16:56 Pulse Rate 118 H 08/06/20 16:56 Respiratory Rate 16 08/06/20 16:56 Blood Pressure 151/97 H 08/06/20 16:56 Pulse Oximetry 97 08/06/20 16:56 <Khanh Raymundo, DO - Last Filed: 08/08/20 02:29> Initial Vital Signs Initial Vital Signs: Vital Signs Temperature 98.9 F 08/06/20 16:56 Pulse Rate 118 H 08/06/20 16:56 Respiratory Rate 16 08/06/20 16:56 Blood Pressure 151/97 H 08/06/20 16:56 Pulse Oximetry 97 08/06/20 16:56 Course <Keturah Jane DO - Last Filed: 08/14/20 10:26> Orders Ordered: Discontinued Medications Diphenhydramine HCl (Diphenhydramine 25 Mg Tablet) 25 mg PO NOW ONE Stop: 08/08/20 03:30 Last Admin: 08/08/20 05:00 Dose: Not Given Documented by: MELVIN Diphenhydramine HCl (Diphenhydramine 50 Mg/Ml Vial) 25 mg IM NOW ONE Stop: 08/08/20 03:31 Last Admin: 08/08/20 03:33 Dose: 25 mg Documented by: MELVIN Sodium Chloride (Normal Saline 0.9%) 1,000 mls @ 1,000 mls/hr IV BOLUS ONE Stop: 08/07/20 00:32 Last Infusion: 08/07/20 02:05 Dose: 0 mls/hr Documented by: Admin: 08/06/20 23:42 Dose: 1,000 mls/hr Documented by: DEYSIALLAG Sodium Chloride (Normal Saline 0.9%) 1,000 mls @ 1,000 mls/hr IV BOLUS ONE Stop: 08/07/20 13:35 Last Infusion: 08/07/20 14:14 Dose: 0 mls/hr Documented by: Admin: 08/07/20 13:06 Dose: 1,000 mls/hr Documented by: DONALD Sodium Chloride (Normal Saline 0.9%) 1,000 mls @ 1,000 mls/hr IV BOLUS ONE Stop: 08/07/20 17:13 Last Infusion: 08/07/20 18:18 Dose: 0 mls/hr Documented by: Admin: 08/07/20 17:00 Dose: 1,000 mls/hr Documented by: DONALD Insulin Aspart (Insulin Aspart 100 Unit/Ml Insuln Pen) 5 unit SUBCUT AC [facility] Last Admin: 08/07/20 18:19 Dose: Not Given Documented by: Admin: 08/07/20 14:12 Dose: 5 unit Documented by: DONALD Cosigned by: AR Admin: 08/07/20 08:56 Dose: 5 unit Documented by: AR Cosigned by: ROBERT Insulin Glargine (Insulin Glargine 100 Unit/Ml 10ml Vial) 10 unit SUBCUT BEDTIME [facility] Last Admin: 08/08/20 03:10 Dose: Not Given Documented by: Admin: 08/06/20 21:53 Dose: 10 unit Documented by: DONALD Cosigned by: SHAKEEL Insulin Human Regular (Insulin Regular 100 Unit/Ml 3 Ml Vial) 5 unit SUBCUT NOW ONE Stop: 08/06/20 23:34 Last Admin: 08/06/20 23:44 Dose: 5 unit Documented by: MELVIN Cosigned by: ROBERT Insulin Human Regular (Insulin Regular 100 Unit/Ml 3 Ml Vial) 10 unit SUBCUT NOW ONE Stop: 08/07/20 01:04 Last Admin: 08/07/20 01:06 Dose: 10 unit Documented by: MELVIN Cosigned by: SHAKEEL Insulin Human Regular (Insulin Regular 100 Unit/Ml 3 Ml Vial) 5 unit SUBCUT NOW ONE Stop: 08/07/20 12:37 Last Admin: 08/07/20 13:07 Dose: 5 unit Documented by: DONALD Cosigned by: YANDY Insulin Human Regular (Insulin Regular 100 Unit/Ml 3 Ml Vial) 10 unit SUBCUT NOW ONE Stop: 08/07/20 16:15 Last Admin: 08/07/20 17:01 Dose: 10 unit Documented by: DONALD Cosigned by: AR Insulin Human Regular (Insulin Regular 100 Unit/Ml 3 Ml Vial) 10 unit SUBCUT NOW ONE Stop: 08/07/20 19:17 Last Admin: 08/07/20 19:29 Dose: 10 unit Documented by: MELVIN Cosigned by: DONALD Insulin Human Regular (Insulin Regular 100 Unit/Ml 3 Ml Vial) 10 unit SUBCUT NOW ONE Stop: 08/07/20 19:59 Last Admin: 08/07/20 20:10 Dose: 10 unit Documented by: MELVIN Cosigned by: DONALD Lamotrigine (Lamotrigine 25 Mg Chew Tablet) 25 mg PO NOW ONE Stop: 08/06/20 19:02 Last Admin: 08/06/20 21:52 Dose: 25 mg Documented by: DONALD Lamotrigine (Lamotrigine 25 Mg Chew Tablet) 25 mg PO NOW ONE Stop: 08/07/20 20:16 Last Admin: 08/07/20 20:33 Dose: 25 mg Documented by: MELVIN Lorazepam (Lorazepam 0.5 Mg Tablet) 2 mg PO NOW ONE Stop: 08/06/20 17:28 Last Admin: 08/06/20 17:37 Dose: 2 mg Documented by: DONALD Lorazepam (Lorazepam 0.5 Mg Tablet) 2 mg PO NOW ONE Stop: 08/06/20 18:57 Last Admin: 08/06/20 19:25 Dose: 2 mg Documented by: DONALD Lorazepam (Lorazepam 0.5 Mg Tablet) 2 mg PO NOW ONE Stop: 08/06/20 23:39 Last Admin: 08/06/20 23:43 Dose: 2 mg Documented by: MELVIN Lorazepam (Lorazepam 0.5 Mg Tablet) 2 mg PO NOW ONE Stop: 08/07/20 03:21 Last Admin: 08/07/20 03:29 Dose: 2 mg Documented by: MELVIN Lorazepam (Lorazepam 2 Mg/Ml Inj) 1 mg IV NOW ONE Stop: 08/07/20 12:37 Last Admin: 08/07/20 13:06 Dose: 1 mg Documented by: DONALD Lorazepam (Lorazepam 2 Mg/Ml Inj) 1 mg IV NOW ONE Stop: 08/07/20 18:21 Last Admin: 08/07/20 18:30 Dose: 1 mg Documented by: DONALD Lorazepam (Lorazepam 2 Mg/Ml Inj) 1 mg IV NOW ONE Stop: 08/07/20 22:45 Last Admin: 08/07/20 22:47 Dose: 1 mg Documented by: DONALD Nicotine (Nicotine 21 Mg Patch) 21 mg TOP NOW ONE Stop: 08/06/20 17:28 Last Admin: 08/06/20 17:37 Dose: 21 mg Documented by: DONALD Nicotine (Nicotine 21 Mg Patch) 21 mg TOP NOW ONE Stop: 08/07/20 12:37 Last Admin: 08/07/20 17:00 Dose: 21 mg Documented by: DONALD Vital Signs Vital signs: Vital Signs - 8 hr 08/08/20 07:30 Pulse Rate 99 H Respiratory Rate 18 Blood Pressure 134/84 Pulse Oximetry 97 <Christina Escudero MD - Last Filed: 08/06/20 23:38> Orders Ordered: Discontinued Medications Diphenhydramine HCl (Diphenhydramine 25 Mg Tablet) 25 mg PO NOW ONE Stop: 08/08/20 03:30 Last Admin: 08/08/20 05:00 Dose: Not Given Documented by: MELVIN Diphenhydramine HCl (Diphenhydramine 50 Mg/Ml Vial) 25 mg IM NOW ONE Stop: 08/08/20 03:31 Last Admin: 08/08/20 03:33 Dose: 25 mg Documented by: MELVIN Sodium Chloride (Normal Saline 0.9%) 1,000 mls @ 1,000 mls/hr IV BOLUS ONE Stop: 08/07/20 00:32 Last Infusion: 08/07/20 02:05 Dose: 0 mls/hr Documented by: Admin: 08/06/20 23:42 Dose: 1,000 mls/hr Documented by: MLEVIN Sodium Chloride (Normal Saline 0.9%) 1,000 mls @ 1,000 mls/hr IV BOLUS ONE Stop: 08/07/20 13:35 Last Infusion: 08/07/20 14:14 Dose: 0 mls/hr Documented by: Admin: 08/07/20 13:06 Dose: 1,000 mls/hr Documented by: DONALD Sodium Chloride (Normal Saline 0.9%) 1,000 mls @ 1,000 mls/hr IV BOLUS ONE Stop: 08/07/20 17:13 Last Infusion: 08/07/20 18:18 Dose: 0 mls/hr Documented by: Admin: 08/07/20 17:00 Dose: 1,000 mls/hr Documented by: DONALD Insulin Aspart (Insulin Aspart 100 Unit/Ml Insuln Pen) 5 unit SUBCUT AC [facility] Last Admin: 08/07/20 18:19 Dose: Not Given Documented by: Admin: 08/07/20 14:12 Dose: 5 unit Documented by: DONALD Cosigned by: AR Admin: 08/07/20 08:56 Dose: 5 unit Documented by: AR Cosigned by: ROBERT Insulin Glargine (Insulin Glargine 100 Unit/Ml 10ml Vial) 10 unit SUBCUT BEDTIME [facility] Last Admin: 08/08/20 03:10 Dose: Not Given Documented by: Admin: 08/06/20 21:53 Dose: 10 unit Documented by: DONALD Cosigned by: SHAKEEL Insulin Human Regular (Insulin Regular 100 Unit/Ml 3 Ml Vial) 5 unit SUBCUT NOW ONE Stop: 08/06/20 23:34 Last Admin: 08/06/20 23:44 Dose: 5 unit Documented by: MELVIN Cosigned by: ROBERT Insulin Human Regular (Insulin Regular 100 Unit/Ml 3 Ml Vial) 10 unit SUBCUT NOW ONE Stop: 08/07/20 01:04 Last Admin: 08/07/20 01:06 Dose: 10 unit Documented by: MELVIN Cosigned by: SHAKEEL Insulin Human Regular (Insulin Regular 100 Unit/Ml 3 Ml Vial) 5 unit SUBCUT NOW ONE Stop: 08/07/20 12:37 Last Admin: 08/07/20 13:07 Dose: 5 unit Documented by: DONALD Cosigned by: YANDY Insulin Human Regular (Insulin Regular 100 Unit/Ml 3 Ml Vial) 10 unit SUBCUT NOW ONE Stop: 08/07/20 16:15 Last Admin: 08/07/20 17:01 Dose: 10 unit Documented by: DONALD Cosigned by: AR Insulin Human Regular (Insulin Regular 100 Unit/Ml 3 Ml Vial) 10 unit SUBCUT NOW ONE Stop: 08/07/20 19:17 Last Admin: 08/07/20 19:29 Dose: 10 unit Documented by: MELVIN Cosigned by: DONALD Insulin Human Regular (Insulin Regular 100 Unit/Ml 3 Ml Vial) 10 unit SUBCUT NOW ONE Stop: 08/07/20 19:59 Last Admin: 08/07/20 20:10 Dose: 10 unit Documented by: MELVIN Cosigned by: BSMEN Lamotrigine (Lamotrigine 25 Mg Chew Tablet) 25 mg PO NOW ONE Stop: 08/06/20 19:02 Last Admin: 08/06/20 21:52 Dose: 25 mg Documented by: DONALD Lamotrigine (Lamotrigine 25 Mg Chew Tablet) 25 mg PO NOW ONE Stop: 08/07/20 20:16 Last Admin: 08/07/20 20:33 Dose: 25 mg Documented by: MELVIN Lorazepam (Lorazepam 0.5 Mg Tablet) 2 mg PO NOW ONE Stop: 08/06/20 17:28 Last Admin: 08/06/20 17:37 Dose: 2 mg Documented by: DONALD Lorazepam (Lorazepam 0.5 Mg Tablet) 2 mg PO NOW ONE Stop: 08/06/20 18:57 Last Admin: 08/06/20 19:25 Dose: 2 mg Documented by: DONALD Lorazepam (Lorazepam 0.5 Mg Tablet) 2 mg PO NOW ONE Stop: 08/06/20 23:39 Last Admin: 08/06/20 23:43 Dose: 2 mg Documented by: MELVIN Lorazepam (Lorazepam 0.5 Mg Tablet) 2 mg PO NOW ONE Stop: 08/07/20 03:21 Last Admin: 08/07/20 03:29 Dose: 2 mg Documented by: MELVIN Lorazepam (Lorazepam 2 Mg/Ml Inj) 1 mg IV NOW ONE Stop: 08/07/20 12:37 Last Admin: 08/07/20 13:06 Dose: 1 mg Documented by: DONALD Lorazepam (Lorazepam 2 Mg/Ml Inj) 1 mg IV NOW ONE Stop: 08/07/20 18:21 Last Admin: 08/07/20 18:30 Dose: 1 mg Documented by: DONALD Lorazepam (Lorazepam 2 Mg/Ml Inj) 1 mg IV NOW ONE Stop: 08/07/20 22:45 Last Admin: 08/07/20 22:47 Dose: 1 mg Documented by: DONALD Nicotine (Nicotine 21 Mg Patch) 21 mg TOP NOW ONE Stop: 08/06/20 17:28 Last Admin: 08/06/20 17:37 Dose: 21 mg Documented by: DONALD Nicotine (Nicotine 21 Mg Patch) 21 mg TOP NOW ONE Stop: 08/07/20 12:37 Last Admin: 08/07/20 17:00 Dose: 21 mg Documented by: DONALD Vital Signs Vital signs: Vital Signs - 8 hr 08/08/20 07:30 Pulse Rate 99 H Respiratory Rate 18 Blood Pressure 134/84 Pulse Oximetry 97 <Kyle Massey DO - Last Filed: 08/08/20 09:34> Course Course Narrative: received in signout from Dr. Escudero. Patient has been seen by [facility]. Ongoing SI Orders Ordered: Discontinued Medications Diphenhydramine HCl (Diphenhydramine 25 Mg Tablet) 25 mg PO NOW ONE Stop: 08/08/20 03:30 Last Admin: 08/08/20 05:00 Dose: Not Given Documented by: KGALLCHARLES Diphenhydramine HCl (Diphenhydramine 50 Mg/Ml Vial) 25 mg IM NOW ONE Stop: 08/08/20 03:31 Last Admin: 08/08/20 03:33 Dose: 25 mg Documented by: MELVIN Sodium Chloride (Normal Saline 0.9%) 1,000 mls @ 1,000 mls/hr IV BOLUS ONE Stop: 08/07/20 00:32 Last Infusion: 08/07/20 02:05 Dose: 0 mls/hr Documented by: Admin: 08/06/20 23:42 Dose: 1,000 mls/hr Documented by: KGALLCHARLES Sodium Chloride (Normal Saline 0.9%) 1,000 mls @ 1,000 mls/hr IV BOLUS ONE Stop: 08/07/20 13:35 Last Infusion: 08/07/20 14:14 Dose: 0 mls/hr Documented by: Admin: 08/07/20 13:06 Dose: 1,000 mls/hr Documented by: DONALD Sodium Chloride (Normal Saline 0.9%) 1,000 mls @ 1,000 mls/hr IV BOLUS ONE Stop: 08/07/20 17:13 Last Infusion: 08/07/20 18:18 Dose: 0 mls/hr Documented by: Admin: 08/07/20 17:00 Dose: 1,000 mls/hr Documented by: DONALD Insulin Aspart (Insulin Aspart 100 Unit/Ml Insuln Pen) 5 unit SUBCUT AC [facility] Last Admin: 08/07/20 18:19 Dose: Not Given Documented by: Admin: 08/07/20 14:12 Dose: 5 unit Documented by: DONALD Cosigned by: AR Admin: 08/07/20 08:56 Dose: 5 unit Documented by: AR Celisigned by: ROBERT Insulin Glargine (Insulin Glargine 100 Unit/Ml 10ml Vial) 10 unit SUBCUT BEDTIME [facility] Last Admin: 08/08/20 03:10 Dose: Not Given Documented by: Admin: 08/06/20 21:53 Dose: 10 unit Documented by: DONALD Cosigned by: SHAKEEL Insulin Human Regular (Insulin Regular 100 Unit/Ml 3 Ml Vial) 5 unit SUBCUT NOW ONE Stop: 08/06/20 23:34 Last Admin: 08/06/20 23:44 Dose: 5 unit Documented by: MELVIN Cosigned by: ROBERT Insulin Human Regular (Insulin Regular 100 Unit/Ml 3 Ml Vial) 10 unit SUBCUT NOW ONE Stop: 08/07/20 01:04 Last Admin: 08/07/20 01:06 Dose: 10 unit Documented by: MELVIN Cosigned by: SHAKEEL Insulin Human Regular (Insulin Regular 100 Unit/Ml 3 Ml Vial) 5 unit SUBCUT NOW ONE Stop: 08/07/20 12:37 Last Admin: 08/07/20 13:07 Dose: 5 unit Documented by: DONALD Celisigned by: YANDY Insulin Human Regular (Insulin Regular 100 Unit/Ml 3 Ml Vial) 10 unit SUBCUT NOW ONE Stop: 08/07/20 16:15 Last Admin: 08/07/20 17:01 Dose: 10 unit Documented by: DONALD Cosigned by: AR Insulin Human Regular (Insulin Regular 100 Unit/Ml 3 Ml Vial) 10 unit SUBCUT NOW ONE Stop: 08/07/20 19:17 Last Admin: 08/07/20 19:29 Dose: 10 unit Documented by: MELVIN Cosigned by: DONALD Insulin Human Regular (Insulin Regular 100 Unit/Ml 3 Ml Vial) 10 unit SUBCUT NOW ONE Stop: 08/07/20 19:59 Last Admin: 08/07/20 20:10 Dose: 10 unit Documented by: MELVIN Cosigned by: DONALD Lamotrigine (Lamotrigine 25 Mg Chew Tablet) 25 mg PO NOW ONE Stop: 08/06/20 19:02 Last Admin: 08/06/20 21:52 Dose: 25 mg Documented by: DONALD Lamotrigine (Lamotrigine 25 Mg Chew Tablet) 25 mg PO NOW ONE Stop: 08/07/20 20:16 Last Admin: 08/07/20 20:33 Dose: 25 mg Documented by: MELVIN Lorazepam (Lorazepam 0.5 Mg Tablet) 2 mg PO NOW ONE Stop: 08/06/20 17:28 Last Admin: 08/06/20 17:37 Dose: 2 mg Documented by: DONALD Lorazepam (Lorazepam 0.5 Mg Tablet) 2 mg PO NOW ONE Stop: 08/06/20 18:57 Last Admin: 08/06/20 19:25 Dose: 2 mg Documented by: DONALD Lorazepam (Lorazepam 0.5 Mg Tablet) 2 mg PO NOW ONE Stop: 08/06/20 23:39 Last Admin: 08/06/20 23:43 Dose: 2 mg Documented by: MELVIN Lorazepam (Lorazepam 0.5 Mg Tablet) 2 mg PO NOW ONE Stop: 08/07/20 03:21 Last Admin: 08/07/20 03:29 Dose: 2 mg Documented by: MELVIN Lorazepam (Lorazepam 2 Mg/Ml Inj) 1 mg IV NOW ONE Stop: 08/07/20 12:37 Last Admin: 08/07/20 13:06 Dose: 1 mg Documented by: DONALD Lorazepam (Lorazepam 2 Mg/Ml Inj) 1 mg IV NOW ONE Stop: 08/07/20 18:21 Last Admin: 08/07/20 18:30 Dose: 1 mg Documented by: DONALD Lorazepam (Lorazepam 2 Mg/Ml Inj) 1 mg IV NOW ONE Stop: 08/07/20 22:45 Last Admin: 08/07/20 22:47 Dose: 1 mg Documented by: DONALD Nicotine (Nicotine 21 Mg Patch) 21 mg TOP NOW ONE Stop: 08/06/20 17:28 Last Admin: 08/06/20 17:37 Dose: 21 mg Documented by: DONALD Nicotine (Nicotine 21 Mg Patch) 21 mg TOP NOW ONE Stop: 08/07/20 12:37 Last Admin: 08/07/20 17:00 Dose: 21 mg Documented by: DONALD Consultations Consultation #1: patient taken to [facility] soon after signout this morning. no new issues Time: 07:32 Vital Signs Vital signs: Vital Signs - 8 hr 08/08/20 07:30 Pulse Rate 99 H Respiratory Rate 18 Blood Pressure 134/84 Pulse Oximetry 97 <Khanh Raymundo DO - Last Filed: 08/08/20 02:29> Orders Ordered: Discontinued Medications Diphenhydramine HCl (Diphenhydramine 25 Mg Tablet) 25 mg PO NOW ONE Stop: 08/08/20 03:30 Last Admin: 08/08/20 05:00 Dose: Not Given Documented by: MELVIN Diphenhydramine HCl (Diphenhydramine 50 Mg/Ml Vial) 25 mg IM NOW ONE Stop: 08/08/20 03:31 Last Admin: 08/08/20 03:33 Dose: 25 mg Documented by: MELVIN Sodium Chloride (Normal Saline 0.9%) 1,000 mls @ 1,000 mls/hr IV BOLUS ONE Stop: 08/07/20 00:32 Last Infusion: 08/07/20 02:05 Dose: 0 mls/hr Documented by: Admin: 08/06/20 23:42 Dose: 1,000 mls/hr Documented by: MELVIN Sodium Chloride (Normal Saline 0.9%) 1,000 mls @ 1,000 mls/hr IV BOLUS ONE Stop: 08/07/20 13:35 Last Infusion: 08/07/20 14:14 Dose: 0 mls/hr Documented by: Admin: 08/07/20 13:06 Dose: 1,000 mls/hr Documented by: DONALD Sodium Chloride (Normal Saline 0.9%) 1,000 mls @ 1,000 mls/hr IV BOLUS ONE Stop: 08/07/20 17:13 Last Infusion: 08/07/20 18:18 Dose: 0 mls/hr Documented by: Admin: 08/07/20 17:00 Dose: 1,000 mls/hr Documented by: DONALD Insulin Aspart (Insulin Aspart 100 Unit/Ml Insuln Pen) 5 unit SUBCUT AC [facility] Last Admin: 08/07/20 18:19 Dose: Not Given Documented by: Admin: 08/07/20 14:12 Dose: 5 unit Documented by: DONALD Cosigned by: AR Admin: 08/07/20 08:56 Dose: 5 unit Documented by: AR Cosigned by: ROBERT Insulin Glargine (Insulin Glargine 100 Unit/Ml 10ml Vial) 10 unit SUBCUT BEDTIME [facility] Last Admin: 08/08/20 03:10 Dose: Not Given Documented by: Admin: 08/06/20 21:53 Dose: 10 unit Documented by: DONALD Cosigned by: SHAKEEL Insulin Human Regular (Insulin Regular 100 Unit/Ml 3 Ml Vial) 5 unit SUBCUT NOW ONE Stop: 08/06/20 23:34 Last Admin: 08/06/20 23:44 Dose: 5 unit Documented by: MELVIN Cosigned by: ROBERT Insulin Human Regular (Insulin Regular 100 Unit/Ml 3 Ml Vial) 10 unit SUBCUT NOW ONE Stop: 08/07/20 01:04 Last Admin: 08/07/20 01:06 Dose: 10 unit Documented by: MELVIN Cosigned by: SHAKEEL Insulin Human Regular (Insulin Regular 100 Unit/Ml 3 Ml Vial) 5 unit SUBCUT NOW ONE Stop: 08/07/20 12:37 Last Admin: 08/07/20 13:07 Dose: 5 unit Documented by: DONALD Celisigned by: YANDY Insulin Human Regular (Insulin Regular 100 Unit/Ml 3 Ml Vial) 10 unit SUBCUT NOW ONE Stop: 08/07/20 16:15 Last Admin: 08/07/20 17:01 Dose: 10 unit Documented by: DONALD Cosigned by: AR Insulin Human Regular (Insulin Regular 100 Unit/Ml 3 Ml Vial) 10 unit SUBCUT NO W ONE Stop: 08/07/20 19:17 Last Admin: 08/07/20 19:29 Dose: 10 unit Documented by: MELVIN Cosigned by: DONALD Insulin Human Regular (Insulin Regular 100 Unit/Ml 3 Ml Vial) 10 unit SUBCUT NOW ONE Stop: 08/07/20 19:59 Last Admin: 08/07/20 20:10 Dose: 10 unit Documented by: MELVIN Cosigned by: DONALD Lamotrigine (Lamotrigine 25 Mg Chew Tablet) 25 mg PO NOW ONE Stop: 08/06/20 19:02 Last Admin: 08/06/20 21:52 Dose: 25 mg Documented by: DONALD Lamotrigine (Lamotrigine 25 Mg Chew Tablet) 25 mg PO NOW ONE Stop: 08/07/20 20:16 Last Admin: 08/07/20 20:33 Dose: 25 mg Documented by: MELVIN Lorazepam (Lorazepam 0.5 Mg Tablet) 2 mg PO NOW ONE Stop: 08/06/20 17:28 Last Admin: 08/06/20 17:37 Dose: 2 mg Documented by: DONALD Lorazepam (Lorazepam 0.5 Mg Tablet) 2 mg PO NOW ONE Stop: 08/06/20 18:57 Last Admin: 08/06/20 19:25 Dose: 2 mg Documented by: DONALD Lorazepam (Lorazepam 0.5 Mg Tablet) 2 mg PO NOW ONE Stop: 08/06/20 23:39 Last Admin: 08/06/20 23:43 Dose: 2 mg Documented by: MELVIN Lorazepam (Lorazepam 0.5 Mg Tablet) 2 mg PO NOW ONE Stop: 08/07/20 03:21 Last Admin: 08/07/20 03:29 Dose: 2 mg Documented by: MELVIN Lorazepam (Lorazepam 2 Mg/Ml Inj) 1 mg IV NOW ONE Stop: 08/07/20 12:37 Last Admin: 08/07/20 13:06 Dose: 1 mg Documented by: DONALD Lorazepam (Lorazepam 2 Mg/Ml Inj) 1 mg IV NOW ONE Stop: 08/07/20 18:21 Last Admin: 08/07/20 18:30 Dose: 1 mg Documented by: DONALD Lorazepam (Lorazepam 2 Mg/Ml Inj) 1 mg IV NOW ONE Stop: 08/07/20 22:45 Last Admin: 08/07/20 22:47 Dose: 1 mg Documented by: DONALD Nicotine (Nicotine 21 Mg Patch) 21 mg TOP NOW ONE Stop: 08/06/20 17:28 Last Admin: 08/06/20 17:37 Dose: 21 mg Documented by: DONALD Nicotine (Nicotine 21 Mg Patch) 21 mg TOP NOW ONE Stop: 08/07/20 12:37 Last Admin: 08/07/20 17:00 Dose: 21 mg Documented by: DONALD Vital Signs Vital signs: Vital Signs - 8 hr 08/08/20 07:30 Pulse Rate 99 H Respiratory Rate 18 Blood Pressure 134/84 Pulse Oximetry 97 MDM - Psych <Keturah Jane DO - Last Filed: 08/14/20 10:26> Lab Data Result diagrams: 08/06/20 17:16 08/07/20 20:37 Labs: Lab Results 08/06/20 08/06/20 08/06/20 Range/Units 17:02 17:02 17:14 WBC (4.5-11.0) X10^3/uL RBC (4.5-5.9) X10^6/uL Hgb (13.5-17.5) g/dL Hct (41-53) % MCV (80-100) fL MCH (26-34) PG MCHC (30-36) % RDW (11.6-14.8) % Plt Count (150-400) X10^3/uL Neut % (Auto) (50-75) % Lymph % (Auto) (25-40) % Mobile % (Auto) (3-14) % Eos % (Auto) (2-4) % Baso % (Auto) (0-2) % Neut # (Auto) (2340-2193) /uL Lymph # (Auto) (3391-5482) /uL Mobile # (Auto) (0-900) /uL Eos # (Auto) (0-450) /uL Baso # (Auto) (0-100) /uL Sodium (137-145) mmol/L Potassium (3.4-5.1) mmol/L Chloride (98-107) mmol/L Carbon Dioxide (22-32) mmol/L BUN (9-20) mg/dL Creatinine (0.66-1.25) mg/dL Estimated GFR (>60) mL/min BUN/Creatinine Ratio (6-22) Glucose (70-100) mg/dL Calcium (8.4-10.2) mg/dL Total Bilirubin (0.2-1.3) mg/dL AST (17-59) IU/L ALT (<50) IU/L Alkaline Phosphatase (38-126) U/L NT-Pro-B Natriuret Pep Total Protein (6.3-8.2) g/dL Albumin (3.5-5.0) g/dL Globulin (1.7-4.1) g/dL Albumin/Globulin Ratio (1.0-2.8) TSH (0.47-4.68) uIU/mL Free T4 (0.78-2.19) ng/dL Urine Color Yellow Urine Appearance Clear Urine pH 5.5 (4.5-8.0) Ur Specific [place] 1.010 (1.000-1.035) Urine Protein Negative (Negative) Urine Glucose (UA) 2+ H (Negative) g/dL Urine Ketones Trace H (NEGATIVE) Urine Occult Blood Negative (Negative) Urine Nitrate Negative (Negative) Urine Bilirubin Negative (NEGATIVE) Urine Urobilinogen 0.2 (0.2) E.U./dL Ur Leukocyte Esterase Negative (NEGATIVE) Urine RBC 0-1/hpf (0-5/HPF) Urine WBC 0-1/hpf (0-5/HPF) Urine Bacteria None seen (None) Ur Culture Indicated? Cult not indicated Salicylates (<20) mg/dL U Opiates 300ng/mL cut Negative (Negative) Ur Oxycodone Screen Negative (Negative) Urine Methadone Screen Negative (Negative) Acetaminophen (10-30) ug/mL Ur Barbiturates Screen Negative (Negative) Total Valproic Acid (50-100) ug/mL U Tricyclic Antidepress Negative (Negative) Ur Phencyclidine Scrn Negative (Negative) Ur Amphetamines Screen Negative (Negative) U Methamphetamines Scrn Negative (Negative) Ur MDMA Scrn (Ecstasy) Negative (Negative) U Benzodiazepines Scrn Negative (Negative) Urine Cocaine Screen Negative (Negative) U Marijuana (THC) Screen Negative (Negative) Ethyl Alcohol ( - 10) mg/dL SARS-CoV-2 (PCR) Negative (Negative) 08/06/20 08/06/20 08/06/20 Range/Units 17:16 17:16 17:16 WBC 7.0 (4.5-11.0) X10^3/uL RBC 5.35 (4.5-5.9) X10^6/uL Hgb 16.2 (13.5-17.5) g/dL Hct 47.8 (41-53) % MCV 89.5 (80-100) fL MCH 30.2 (26-34) PG MCHC 33.8 (30-36) % RDW 14.2 (11.6-14.8) % Plt Count 182 (150-400) X10^3/uL Neut % (Auto) 69.8 (50-75) % Lymph % (Auto) 21.4 L (25-40) % Mobile % (Auto) 6.0 (3-14) % Eos % (Auto) 1.8 L (2-4) % Baso % (Auto) 1.0 (0-2) % Neut # (Auto) 4900 (5546-8943) /uL Lymph # (Auto) 1500 (3442-6723) /uL Mobile # (Auto) 400 (0-900) /uL Eos # (Auto) 100 (0-450) /uL Baso # (Auto) 100 (0-100) /uL Sodium 131 L (137-145) mmol/L Potassium 3.6 (3.4-5.1) mmol/L Chloride 100 (98-107) mmol/L Carbon Dioxide 23 (22-32) mmol/L BUN 8 L (9-20) mg/dL Creatinine 0.60 L (0.66-1.25) mg/dL Estimated GFR > 60.0 (>60) mL/min BUN/Creatinine Ratio 13.3 (6-22) Glucose 322 H (70-100) mg/dL Calcium 9.1 (8.4-10.2) mg/dL Total Bilirubin 0.5 (0.2-1.3) mg/dL AST 24 (17-59) IU/L ALT 18 (<50) IU/L Alkaline Phosphatase 99 (38-126) U/L NT-Pro-B Natriuret Pep Total Protein 6.8 (6.3-8.2) g/dL Albumin 4.2 (3.5-5.0) g/dL Globulin 2.6 (1.7-4.1) g/dL Albumin/Globulin Ratio 1.6 (1.0-2.8) TSH 0.861 (0.47-4.68) uIU/mL Free T4 1.00 (0.78-2.19) ng/dL Urine Color Urine Appearance Urine pH (4.5-8.0) Ur Specific [place] (1.000-1.035) Urine Protein (Negative) Urine Glucose (UA) (Negative) g/dL Urine Ketones (NEGATIVE) Urine Occult Blood (Negative) Urine Nitrate (Negative) Urine Bilirubin (NEGATIVE) Urine Urobilinogen (0.2) E.U./dL Ur Leukocyte Esterase (NEGATIVE) Urine RBC (0-5/HPF) Urine WBC (0-5/HPF) Urine Bacteria (None) Ur Culture Indicated? Salicylates < 1.0 (<20) mg/dL U Opiates 300ng/mL cut (Negative) Ur Oxycodone Screen (Negative) Urine Methadone Screen (Negative) Acetaminophen < 10 L (10-30) ug/mL Ur Barbiturates Screen (Negative) Total Valproic Acid (50-100) ug/mL U Tricyclic Antidepress (Negative) Ur Phencyclidine Scrn (Negative) Ur Amphetamines Screen (Negative) U Methamphetamines Scrn (Negative) Ur MDMA Scrn (Ecstasy) (Negative) U Benzodiazepines Scrn (Negative) Urine Cocaine Screen (Negative) U Marijuana (THC) Screen (Negative) Ethyl Alcohol < 10 ( - 10) mg/dL SARS-CoV-2 (PCR) (Negative) 08/06/20 08/07/20 08/07/20 Range/Units 17:30 05:55 12:08 WBC (4.5-11.0) X10^3/uL RBC (4.5-5.9) X10^6/uL Hgb (13.5-17.5) g/dL Hct (41-53) % MCV (80-100) fL MCH (26-34) PG MCHC (30-36) % RDW (11.6-14.8) % Plt Count (150-400) X10^3/uL Neut % (Auto) (50-75) % Lymph % (Auto) (25-40) % Mobile % (Auto) (3-14) % Eos % (Auto) (2-4) % Baso % (Auto) (0-2) % Neut # (Auto) (2759-1380) /uL Lymph # (Auto) (7065-1102) /uL Mobile # (Auto) (0-900) /uL Eos # (Auto) (0-450) /uL Baso # (Auto) (0-100) /uL Sodium 135 L 133 L (137-145) mmol/L Potassium 3.7 4.1 (3.4-5.1) mmol/L Chloride 105 102 (98-107) mmol/L Carbon Dioxide 29 27 (22-32) mmol/L BUN 10 12 (9-20) mg/dL Creatinine 0.71 0.69 (0.66-1.25) mg/dL Estimated GFR > 60.0 > 60.0 (>60) mL/min BUN/Creatinine Ratio 14.1 17.4 (6-22) Glucose 130 H D 322 H D (70-100) mg/dL Calcium 9.2 9.4 (8.4-10.2) mg/dL Total Bilirubin (0.2-1.3) mg/dL AST (17-59) IU/L ALT (<50) IU/L Alkaline Phosphatase (38-126) U/L NT-Pro-B Natriuret Pep Total Protein (6.3-8.2) g/dL Albumin (3.5-5.0) g/dL Globulin (1.7-4.1) g/dL Albumin/Globulin Ratio (1.0-2.8) TSH (0.47-4.68) uIU/mL Free T4 (0.78-2.19) ng/dL Urine Color Urine Appearance Urine pH (4.5-8.0) Ur Specific [place] (1.000-1.035) Urine Protein (Negative) Urine Glucose (UA) (Negative) g/dL Urine Ketones (NEGATIVE) Urine Occult Blood (Negative) Urine Nitrate (Negative) Urine Bilirubin (NEGATIVE) Urine Urobilinogen (0.2) E.U./dL Ur Leukocyte Esterase (NEGATIVE) Urine RBC (0-5/HPF) Urine WBC (0-5/HPF) Urine Bacteria (None) Ur Culture Indicated? Salicylates (<20) mg/dL U Opiates 300ng/mL cut (Negative) Ur Oxycodone Screen (Negative) Urine Methadone Screen (Negative) Acetaminophen (10-30) ug/mL Ur Barbiturates Screen (Negative) Total Valproic Acid < 4 L (50-100) ug/mL U Tricyclic Antidepress (Negative) Ur Phencyclidine Scrn (Negative) Ur Amphetamines Screen (Negative) U Methamphetamines Scrn (Negative) Ur MDMA Scrn (Ecstasy) (Negative) U Benzodiazepines Scrn (Negative) Urine Cocaine Screen (Negative) U Marijuana (THC) Screen (Negative) Ethyl Alcohol ( - 10) mg/dL SARS-CoV-2 (PCR) (Negative) 08/07/20 08/07/20 08/07/20 Range/Units 14:44 17:54 17:54 WBC (4.5-11.0) X10^3/uL RBC (4.5-5.9) X10^6/uL Hgb (13.5-17.5) g/dL Hct (41-53) % MCV (80-100) fL MCH (26-34) PG MCHC (30-36) % RDW (11.6-14.8) % Plt Count (150-400) X10^3/uL Neut % (Auto) (50-75) % Lymph % (Auto) (25-40) % Mobile % (Auto) (3-14) % Eos % (Auto) (2-4) % Baso % (Auto) (0-2) % Neut # (Auto) (3467-8934) /uL Lymph # (Auto) (3694-8527) /uL Mobile # (Auto) (0-900) /uL Eos # (Auto) (0-450) /uL Baso # (Auto) (0-100) /uL Sodium 131 L 132 L (137-145) mmol/L Potassium 4.0 4.2 (3.4-5.1) mmol/L Chloride 102 106 (98-107) mmol/L Carbon Dioxide 26 24 (22-32) mmol/L BUN 12 10 (9-20) mg/dL Creatinine 0.70 0.63 L (0.66-1.25) mg/dL Estimated GFR > 60.0 > 60.0 (>60) mL/min BUN/Creatinine Ratio 17.1 15.9 (6-22) Glucose 310 H 294 H (70-100) mg/dL Calcium 8.7 8.6 (8.4-10.2) mg/dL Total Bilirubin (0.2-1.3) mg/dL AST (17-59) IU/L ALT (<50) IU/L Alkaline Phosphatase (38-126) U/L NT-Pro-B Natriuret Pep Cancelled Total Protein (6.3-8.2) g/dL Albumin (3.5-5.0) g/dL Globulin (1.7-4.1) g/dL Albumin/Globulin Ratio (1.0-2.8) TSH (0.47-4.68) uIU/mL Free T4 (0.78-2.19) ng/dL Urine Color Urine Appearance Urine pH (4.5-8.0) Ur Specific [place] (1.000-1.035) Urine Protein (Negative) Urine Glucose (UA) (Negative) g/dL Urine Ketones (NEGATIVE) Urine Occult Blood (Negative) Urine Nitrate (Negative) Urine Bilirubin (NEGATIVE) Urine Urobilinogen (0.2) E.U./dL Ur Leukocyte Esterase (NEGATIVE) Urine RBC (0-5/HPF) Urine WBC (0-5/HPF) Urine Bacteria (None) Ur Culture Indicated? Salicylates (<20) mg/dL U Opiates 300ng/mL cut (Negative) Ur Oxycodone Screen (Negative) Urine Methadone Screen (Negative) Acetaminophen (10-30) ug/mL Ur Barbiturates Screen (Negative) Total Valproic Acid (50-100) ug/mL U Tricyclic Antidepress (Negative) Ur Phencyclidine Scrn (Negative) Ur Amphetamines Screen (Negative) U Methamphetamines Scrn (Negative) Ur MDMA Scrn (Ecstasy) (Negative) U Benzodiazepines Scrn (Negative) Urine Cocaine Screen (Negative) U Marijuana (THC) Screen (Negative) Ethyl Alcohol ( - 10) mg/dL SARS-CoV-2 (PCR) (Negative) 08/07/20 Range/Units 20:37 WBC (4.5-11.0) X10^3/uL RBC (4.5-5.9) X10^6/uL Hgb (13.5-17.5) g/dL Hct (41-53) % MCV (80-100) fL MCH (26-34) PG MCHC (30-36) % RDW (11.6-14.8) % Plt Count (150-400) X10^3/uL Neut % (Auto) (50-75) % Lymph % (Auto) (25-40) % Mobile % (Auto) (3-14) % Eos % (Auto) (2-4) % Baso % (Auto) (0-2) % Neut # (Auto) (9361-7247) /uL Lymph # (Auto) (3414-3122) /uL Mobile # (Auto) (0-900) /uL Eos # (Auto) (0-450) /uL Baso # (Auto) (0-100) /uL Sodium 136 L (137-145) mmol/L Potassium 3.7 (3.4-5.1) mmol/L Chloride 105 (98-107) mmol/L Carbon Dioxide 28 (22-32) mmol/L BUN 9 (9-20) mg/dL Creatinine 0.72 (0.66-1.25) mg/dL Estimated GFR > 60.0 (>60) mL/min BUN/Creatinine Ratio 12.5 (6-22) Glucose 194 H D (70-100) mg/dL Calcium 9.0 (8.4-10.2) mg/dL Total Bilirubin (0.2-1.3) mg/dL AST (17-59) IU/L ALT (<50) IU/L Alkaline Phosphatase (38-126) U/L NT-Pro-B Natriuret Pep Total Protein (6.3-8.2) g/dL Albumin (3.5-5.0) g/dL Globulin (1.7-4.1) g/dL Albumin/Globulin Ratio (1.0-2.8) TSH (0.47-4.68) uIU/mL Free T4 (0.78-2.19) ng/dL Urine Color Urine Appearance Urine pH (4.5-8.0) Ur Specific [place] (1.000-1.035) Urine Protein (Negative) Urine Glucose (UA) (Negative) g/dL Urine Ketones (NEGATIVE) Urine Occult Blood (Negative) Urine Nitrate (Negative) Urine Bilirubin (NEGATIVE) Urine Urobilinogen (0.2) E.U./dL Ur Leukocyte Esterase (NEGATIVE) Urine RBC (0-5/HPF) Urine WBC (0-5/HPF) Urine Bacteria (None) Ur Culture Indicated? Salicylates (<20) mg/dL U Opiates 300ng/mL cut (Negative) Ur Oxycodone Screen (Negative) Urine Methadone Screen (Negative) Acetaminophen (10-30) ug/mL Ur Barbiturates Screen (Negative) Total Valproic Acid (50-100) ug/mL U Tricyclic Antidepress (Negative) Ur Phencyclidine Scrn (Negative) Ur Amphetamines Screen (Negative) U Methamphetamines Scrn (Negative) Ur MDMA Scrn (Ecstasy) (Negative) U Benzodiazepines Scrn (Negative) Urine Cocaine Screen (Negative) U Marijuana (THC) Screen (Negative) Ethyl Alcohol ( - 10) mg/dL SARS-CoV-2 (PCR) (Negative) Point of Care Testing Glucose POC 171 MDM Narrative Medical decision making narrative: Patient currently voluntary concern for alcohol abuse and suicidal ideation. Will need placement Patient signed out to Dr. Escudero <Christina Escudero MD - Last Filed: 08/06/20 23:38> Medical Records Attestation: I reviewed the patient's medical records. Lab Data Attestation: I reviewed the patient's lab results. Labs: Lab Results 08/06/20 08/06/20 08/06/20 Range/Units 17:02 17:02 17:14 WBC (4.5-11.0) X10^3/uL RBC (4.5-5.9) X10^6/uL Hgb (13.5-17.5) g/dL Hct (41-53) % MCV (80-100) fL MCH (26-34) PG MCHC (30-36) % RDW (11.6-14.8) % Plt Count (150-400) X10^3/uL Neut % (Auto) (50-75) % Lymph % (Auto) (25-40) % Mobile % (Auto) (3-14) % Eos % (Auto) (2-4) % Baso % (Auto) (0-2) % Neut # (Auto) (9903-2777) /uL Lymph # (Auto) (3465-9513) /uL Mobile # (Auto) (0-900) /uL Eos # (Auto) (0-450) /uL Baso # (Auto) (0-100) /uL Sodium (137-145) mmol/L Potassium (3.4-5.1) mmol/L Chloride (98-107) mmol/L Carbon Dioxide (22-32) mmol/L BUN (9-20) mg/dL Creatinine (0.66-1.25) mg/dL Estimated GFR (>60) mL/min BUN/Creatinine Ratio (6-22) Glucose (70-100) mg/dL Calcium (8.4-10.2) mg/dL Total Bilirubin (0.2-1.3) mg/dL AST (17-59) IU/L ALT (<50) IU/L Alkaline Phosphatase (38-126) U/L NT-Pro-B Natriuret Pep Total Protein (6.3-8.2) g/dL Albumin (3.5-5.0) g/dL Globulin (1.7-4.1) g/dL Albumin/Globulin Ratio (1.0-2.8) TSH (0.47-4.68) uIU/mL Free T4 (0.78-2.19) ng/dL Urine Color Yellow Urine Appearance Clear Urine pH 5.5 (4.5-8.0) Ur Specific [place] 1.010 (1.000-1.035) Urine Protein Negative (Negative) Urine Glucose (UA) 2+ H (Negative) g/dL Urine Ketones Trace H (NEGATIVE) Urine Occult Blood Negative (Negative) Urine Nitrate Negative (Negative) Urine Bilirubin Negative (NEGATIVE) Urine Urobilinogen 0.2 (0.2) E.U./dL Ur Leukocyte Esterase Negative (NEGATIVE) Urine RBC 0-1/hpf (0-5/HPF) Urine WBC 0-1/hpf (0-5/HPF) Urine Bacteria None seen (None) Ur Culture Indicated? Cult not indicated Salicylates (<20) mg/dL U Opiates 300ng/mL cut Negative (Negative) Ur Oxycodone Screen Negative (Negative) Urine Methadone Screen Negative (Negative) Acetaminophen (10-30) ug/mL Ur Barbiturates Screen Negative (Negative) Total Valproic Acid (50-100) ug/mL U Tricyclic Antidepress Negative (Negative) Ur Phencyclidine Scrn Negative (Negative) Ur Amphetamines Screen Negative (Negative) U Methamphetamines Scrn Negative (Negative) Ur MDMA Scrn (Ecstasy) Negative (Negative) U Benzodiazepines Scrn Negative (Negative) Urine Cocaine Screen Negative (Negative) U Marijuana (THC) Screen Negative (Negative) Ethyl Alcohol ( - 10) mg/dL SARS-CoV-2 (PCR) Negative (Negative) 08/06/20 08/06/20 08/06/20 Range/Units 17:16 17:16 17:16 WBC 7.0 (4.5-11.0) X10^3/uL RBC 5.35 (4.5-5.9) X10^6/uL Hgb 16.2 (13.5-17.5) g/dL Hct 47.8 (41-53) % MCV 89.5 (80-100) fL MCH 30.2 (26-34) PG MCHC 33.8 (30-36) % RDW 14.2 (11.6-14.8) % Plt Count 182 (150-400) X10^3/uL Neut % (Auto) 69.8 (50-75) % Lymph % (Auto) 21.4 L (25-40) % Mobile % (Auto) 6.0 (3-14) % Eos % (Auto) 1.8 L (2-4) % Baso % (Auto) 1.0 (0-2) % Neut # (Auto) 4900 (7863-1798) /uL Lymph # (Auto) 1500 (4569-3993) /uL Mobile # (Auto) 400 (0-900) /uL Eos # (Auto) 100 (0-450) /uL Baso # (Auto) 100 (0-100) /uL Sodium 131 L (137-145) mmol/L Potassium 3.6 (3.4-5.1) mmol/L Chloride 100 (98-107) mmol/L Carbon Dioxide 23 (22-32) mmol/L BUN 8 L (9-20) mg/dL Creatinine 0.60 L (0.66-1.25) mg/dL Estimated GFR > 60.0 (>60) mL/min BUN/Creatinine Ratio 13.3 (6-22) Glucose 322 H (70-100) mg/dL Calcium 9.1 (8.4-10.2) mg/dL Total Bilirubin 0.5 (0.2-1.3) mg/dL AST 24 (17-59) IU/L ALT 18 (<50) IU/L Alkaline Phosphatase 99 (38-126) U/L NT-Pro-B Natriuret Pep Total Protein 6.8 (6.3-8.2) g/dL Albumin 4.2 (3.5-5.0) g/dL Globulin 2.6 (1.7-4.1) g/dL Albumin/Globulin Ratio 1.6 (1.0-2.8) TSH 0.861 (0.47-4.68) uIU/mL Free T4 1.00 (0.78-2.19) ng/dL Urine Color Urine Appearance Urine pH (4.5-8.0) Ur Specific [place] (1.000-1.035) Urine Protein (Negative) Urine Glucose (UA) (Negative) g/dL Urine Ketones (NEGATIVE) Urine Occult Blood (Negative) Urine Nitrate (Negative) Urine Bilirubin (NEGATIVE) Urine Urobilinogen (0.2) E.U./dL Ur Leukocyte Esterase (NEGATIVE) Urine RBC (0-5/HPF) Urine WBC (0-5/HPF) Urine Bacteria (None) Ur Culture Indicated? Salicylates < 1.0 (<20) mg/dL U Opiates 300ng/mL cut (Negative) Ur Oxycodone Screen (Negative) Urine Methadone Screen (Negative) Acetaminophen < 10 L (10-30) ug/mL Ur Barbiturates Screen (Negative) Total Valproic Acid (50-100) ug/mL U Tricyclic Antidepress (Negative) Ur Phencyclidine Scrn (Negative) Ur Amphetamines Screen (Negative) U Methamphetamines Scrn (Negative) Ur MDMA Scrn (Ecstasy) (Negative) U Benzodiazepines Scrn (Negative) Urine Cocaine Screen (Negative) U Marijuana (THC) Screen (Negative) Ethyl Alcohol < 10 ( - 10) mg/dL SARS-CoV-2 (PCR) (Negative) 08/06/20 08/07/20 08/07/20 Range/Units 17:30 05:55 12:08 WBC (4.5-11.0) X10^3/uL RBC (4.5-5.9) X10^6/uL Hgb (13.5-17.5) g/dL Hct (41-53) % MCV (80-100) fL MCH (26-34) PG MCHC (30-36) % RDW (11.6-14.8) % Plt Count (150-400) X10^3/uL Neut % (Auto) (50-75) % Lymph % (Auto) (25-40) % Mobile % (Auto) (3-14) % Eos % (Auto) (2-4) % Baso % (Auto) (0-2) % Neut # (Auto) (0697-7017) /uL Lymph # (Auto) (3630-8080) /uL [place] # (Auto) (0-900) /uL Eos # (Auto) (0-450) /uL Baso # (Auto) (0-100) /uL Sodium 135 L 133 L (137-145) mmol/L Potassium 3.7 4.1 (3.4-5.1) mmol/L Chloride 105 102 (98-107) mmol/L Carbon Dioxide 29 27 (22-32) mmol/L BUN 10 12 (9-20) mg/dL Creatinine 0.71 0.69 (0.66-1.25) mg/dL Estimated GFR > 60.0 > 60.0 (>60) mL/min BUN/Creatinine Ratio 14.1 17.4 (6-22) Glucose 130 H D 322 H D (70-100) mg/dL Calcium 9.2 9.4 (8.4-10.2) mg/dL Total Bilirubin (0.2-1.3) mg/dL AST (17-59) IU/L ALT (<50) IU/L Alkaline Phosphatase (38-126) U/L NT-Pro-B Natriuret Pep Total Protein (6.3-8.2) g/dL Albumin (3.5-5.0) g/dL Globulin (1.7-4.1) g/dL Albumin/Globulin Ratio (1.0-2.8) TSH (0.47-4.68) uIU/mL Free T4 (0.78-2.19) ng/dL Urine Color Urine Appearance Urine pH (4.5-8.0) Ur Specific [place] (1.000-1.035) Urine Protein (Negative) Urine Glucose (UA) (Negative) g/dL Urine Ketones (NEGATIVE) Urine Occult Blood (Negative) Urine Nitrate (Negative) Urine Bilirubin (NEGATIVE) Urine Urobilinogen (0.2) E.U./dL Ur Leukocyte Esterase (NEGATIVE) Urine RBC (0-5/HPF) Urine WBC (0-5/HPF) Urine Bacteria (None) Ur Culture Indicated? Salicylates (<20) mg/dL U Opiates 300ng/mL cut (Negative) Ur Oxycodone Screen (Negative) Urine Methadone Screen (Negative) Acetaminophen (10-30) ug/mL Ur Barbiturates Screen (Negative) Total Valproic Acid < 4 L (50-100) ug/mL U Tricyclic Antidepress (Negative) Ur Phencyclidine Scrn (Negative) Ur Amphetamines Screen (Negative) U Methamphetamines Scrn (Negative) Ur MDMA Scrn (Ecstasy) (Negative) U Benzodiazepines Scrn (Negative) Urine Cocaine Screen (Negative) U Marijuana (THC) Screen (Negative) Ethyl Alcohol ( - 10) mg/dL SARS-CoV-2 (PCR) (Negative) 08/07/20 08/07/20 08/07/20 Range/Units 14:44 17:54 17:54 WBC (4.5-11.0) X10^3/uL RBC (4.5-5.9) X10^6/uL Hgb (13.5-17.5) g/dL Hct (41-53) % MCV (80-100) fL MCH (26-34) PG MCHC (30-36) % RDW (11.6-14.8) % Plt Count (150-400) X10^3/uL Neut % (Auto) (50-75) % Lymph % (Auto) (25-40) % Mobile % (Auto) (3-14) % Eos % (Auto) (2-4) % Baso % (Auto) (0-2) % Neut # (Auto) (1722-9010) /uL Lymph # (Auto) (1656-8769) /uL Mobile # (Auto) (0-900) /uL Eos # (Auto) (0-450) /uL Baso # (Auto) (0-100) /uL Sodium 131 L 132 L (137-145) mmol/L Potassium 4.0 4.2 (3.4-5.1) mmol/L Chloride 102 106 (98-107) mmol/L Carbon Dioxide 26 24 (22-32) mmol/L BUN 12 10 (9-20) mg/dL Creatinine 0.70 0.63 L (0.66-1.25) mg/dL Estimated GFR > 60.0 > 60.0 (>60) mL/min BUN/Creatinine Ratio 17.1 15.9 (6-22) Glucose 310 H 294 H (70-100) mg/dL Calcium 8.7 8.6 (8.4-10.2) mg/dL Total Bilirubin (0.2-1.3) mg/dL AST (17-59) IU/L ALT (<50) IU/L Alkaline Phosphatase (38-126) U/L NT-Pro-B Natriuret Pep Cancelled Total Protein (6.3-8.2) g/dL Albumin (3.5-5.0) g/dL Globulin (1.7-4.1) g/dL Albumin/Globulin Ratio (1.0-2.8) TSH (0.47-4.68) uIU/mL Free T4 (0.78-2.19) ng/dL Urine Color Urine Appearance Urine pH (4.5-8.0) Ur Specific [place] (1.000-1.035) Urine Protein (Negative) Urine Glucose (UA) (Negative) g/dL Urine Ketones (NEGATIVE) Urine Occult Blood (Negative) Urine Nitrate (Negative) Urine Bilirubin (NEGATIVE) Urine Urobilinogen (0.2) E.U./dL Ur Leukocyte Esterase (NEGATIVE) Urine RBC (0-5/HPF) Urine WBC (0-5/HPF) Urine Bacteria (None) Ur Culture Indicated? Salicylates (<20) mg/dL U Opiates 300ng/mL cut (Negative) Ur Oxycodone Screen (Negative) Urine Methadone Screen (Negative) Acetaminophen (10-30) ug/mL Ur Barbiturates Screen (Negative) Total Valproic Acid (50-100) ug/mL U Tricyclic Antidepress (Negative) Ur Phencyclidine Scrn (Negative) Ur Amphetamines Screen (Negative) U Methamphetamines Scrn (Negative) Ur MDMA Scrn (Ecstasy) (Negative) U Benzodiazepines Scrn (Negative) Urine Cocaine Screen (Negative) U Marijuana (THC) Screen (Negative) Ethyl Alcohol ( - 10) mg/dL SARS-CoV-2 (PCR) (Negative) 08/07/20 Range/Units 20:37 WBC (4.5-11.0) X10^3/uL RBC (4.5-5.9) X10^6/uL Hgb (13.5-17.5) g/dL Hct (41-53) % MCV (80-100) fL MCH (26-34) PG MCHC (30-36) % RDW (11.6-14.8) % Plt Count (150-400) X10^3/uL Neut % (Auto) (50-75) % Lymph % (Auto) (25-40) % Mobile % (Auto) (3-14) % Eos % (Auto) (2-4) % Baso % (Auto) (0-2) % Neut # (Auto) (5153-2936) /uL Lymph # (Auto) (0426-0122) /uL Mobile # (Auto) (0-900) /uL Eos # (Auto) (0-450) /uL Baso # (Auto) (0-100) /uL Sodium 136 L (137-145) mmol/L Potassium 3.7 (3.4-5.1) mmol/L Chloride 105 (98-107) mmol/L Carbon Dioxide 28 (22-32) mmol/L BUN 9 (9-20) mg/dL Creatinine 0.72 (0.66-1.25) mg/dL Estimated GFR > 60.0 (>60) mL/min BUN/Creatinine Ratio 12.5 (6-22) Glucose 194 H D (70-100) mg/dL Calcium 9.0 (8.4-10.2) mg/dL Total Bilirubin (0.2-1.3) mg/dL AST (17-59) IU/L ALT (<50) IU/L Alkaline Phosphatase (38-126) U/L NT-Pro-B Natriuret Pep Total Protein (6.3-8.2) g/dL Albumin (3.5-5.0) g/dL Globulin (1.7-4.1) g/dL Albumin/Globulin Ratio (1.0-2.8) TSH (0.47-4.68) uIU/mL Free T4 (0.78-2.19) ng/dL Urine Color Urine Appearance Urine pH (4.5-8.0) Ur Specific [place] (1.000-1.035) Urine Protein (Negative) Urine Glucose (UA) (Negative) g/dL Urine Ketones (NEGATIVE) Urine Occult Blood (Negative) Urine Nitrate (Negative) Urine Bilirubin (NEGATIVE) Urine Urobilinogen (0.2) E.U./dL Ur Leukocyte Esterase (NEGATIVE) Urine RBC (0-5/HPF) Urine WBC (0-5/HPF) Urine Bacteria (None) Ur Culture Indicated? Salicylates (<20) mg/dL U Opiates 300ng/mL cut (Negative) Ur Oxycodone Screen (Negative) Urine Methadone Screen (Negative) Acetaminophen (10-30) ug/mL Ur Barbiturates Screen (Negative) Total Valproic Acid (50-100) ug/mL U Tricyclic Antidepress (Negative) Ur Phencyclidine Scrn (Negative) Ur Amphetamines Screen (Negative) U Methamphetamines Scrn (Negative) Ur MDMA Scrn (Ecstasy) (Negative) U Benzodiazepines Scrn (Negative) Urine Cocaine Screen (Negative) U Marijuana (THC) Screen (Negative) Ethyl Alcohol ( - 10) mg/dL SARS-CoV-2 (PCR) (Negative) Point of Care Testing Glucose POC 171 MDM Narrative Medical decision making narrative: 40-year-old gentleman with bipolar disorder type 1.5 diabetes and alcohol use disorder who presents sober and requesting help with suicidal ideation and getting back to medications for his bipolar disorder as well has his diabetes. He is wondering if there are beds at [facility] that might be available. Will begin phone calls at this time we do not have a manager social so may need to wait until tomorrow unless [facility] can except without social work evaluation prior. At this point he is medically clear. Will have him restart 10 units of Lantus subQ insulin. He does have a glucose monitor for continuous glucose reading. Will also continue 25 mg of Lamictal and will give him additional 2 mg of Ativan for anxiety and mild alcohol withdrawal symptoms. At this time he is not having severe withdrawal and is not at risk for withdrawal seizures. 1135pm [facility] has reviewed paperwork. They would like to see normalized sodium (sodium above 131 corrects to 134 when glucose is taken into account) and to see that blood sugars are controlled. Mao describes 5-10 units of rapid insulin before meals and 10-15 units at bedtime however he has not been doing this for a number of months and his blood sugars are typically in the 200-400 range. He states he feels hypoglycemic if he gets below 150. Will restart AC insulin. He got 10 units of Lantus this evening and will give him an additional 5 units of regular insulin right now as his blood sugar is in the 400 range(he has a continuous monitor ) <Kyle Massey DO - Last Filed: 08/08/20 09:34> Lab Data Labs: Lab Results 08/06/20 08/06/20 08/06/20 Range/Units 17:02 17:02 17:14 WBC (4.5-11.0) X10^3/uL RBC (4.5-5.9) X10^6/uL Hgb (13.5-17.5) g/dL Hct (41-53) % MCV (80-100) fL MCH (26-34) PG MCHC (30-36) % RDW (11.6-14.8) % Plt Count (150-400) X10^3/uL Neut % (Auto) (50-75) % Lymph % (Auto) (25-40) % Mobile % (Auto) (3-14) % Eos % (Auto) (2-4) % Baso % (Auto) (0-2) % Neut # (Auto) (6939-0110) /uL Lymph # (Auto) (2788-5517) /uL Mobile # (Auto) (0-900) /uL Eos # (Auto) (0-450) /uL Baso # (Auto) (0-100) /uL Sodium (137-145) mmol/L Potassium (3.4-5.1) mmol/L Chloride (98-107) mmol/L Carbon Dioxide (22-32) mmol/L BUN (9-20) mg/dL Creatinine (0.66-1.25) mg/dL Estimated GFR (>60) mL/min BUN/Creatinine Ratio (6-22) Glucose (70-100) mg/dL Calcium (8.4-10.2) mg/dL Total Bilirubin (0.2-1.3) mg/dL AST (17-59) IU/L ALT (<50) IU/L Alkaline Phosphatase (38-126) U/L NT-Pro-B Natriuret Pep Total Protein (6.3-8.2) g/dL Albumin (3.5-5.0) g/dL Globulin (1.7-4.1) g/dL Albumin/Globulin Ratio (1.0-2.8) TSH (0.47-4.68) uIU/mL Free T4 (0.78-2.19) ng/dL Urine Color Yellow Urine Appearance Clear Urine pH 5.5 (4.5-8.0) Ur Specific [place] 1.010 (1.000-1.035) Urine Protein Negative (Negative) Urine Glucose (UA) 2+ H (Negative) g/dL Urine Ketones Trace H (NEGATIVE) Urine Occult Blood Negative (Negative) Urine Nitrate Negative (Negative) Urine Bilirubin Negative (NEGATIVE) Urine Urobilinogen 0.2 (0.2) E.U./dL Ur Leukocyte Esterase Negative (NEGATIVE) Urine RBC 0-1/hpf (0-5/HPF) Urine WBC 0-1/hpf (0-5/HPF) Urine Bacteria None seen (None) Ur Culture Indicated? Cult not indicated Salicylates (<20) mg/dL U Opiates 300ng/mL cut Negative (Negative) Ur Oxycodone Screen Negative (Negative) Urine Methadone Screen Negative (Negative) Acetaminophen (10-30) ug/mL Ur Barbiturates Screen Negative (Negative) Total Valproic Acid (50-100) ug/mL U Tricyclic Antidepress Negative (Negative) Ur Phencyclidine Scrn Negative (Negative) Ur Amphetamines Screen Negative (Negative) U Methamphetamines Scrn Negative (Negative) Ur MDMA Scrn (Ecstasy) Negative (Negative) U Benzodiazepines Scrn Negative (Negative) Urine Cocaine Screen Negative (Negative) U Marijuana (THC) Screen Negative (Negative) Ethyl Alcohol ( - 10) mg/dL SARS-CoV-2 (PCR) Negative (Negative) 08/06/20 08/06/20 08/06/20 Range/Units 17:16 17:16 17:16 WBC 7.0 (4.5-11.0) X10^3/uL RBC 5.35 (4.5-5.9) X10^6/uL Hgb 16.2 (13.5-17.5) g/dL Hct 47.8 (41-53) % MCV 89.5 (80-100) fL MCH 30.2 (26-34) PG MCHC 33.8 (30-36) % RDW 14.2 (11.6-14.8) % Plt Count 182 (150-400) X10^3/uL Neut % (Auto) 69.8 (50-75) % Lymph % (Auto) 21.4 L (25-40) % Mobile % (Auto) 6.0 (3-14) % Eos % (Auto) 1.8 L (2-4) % Baso % (Auto) 1.0 (0-2) % Neut # (Auto) 4900 (0377-2825) /uL Lymph # (Auto) 1500 (9829-0687) /uL Mobile # (Auto) 400 (0-900) /uL Eos # (Auto) 100 (0-450) /uL Baso # (Auto) 100 (0-100) /uL Sodium 131 L (137-145) mmol/L Potassium 3.6 (3.4-5.1) mmol/L Chloride 100 (98-107) mmol/L Carbon Dioxide 23 (22-32) mmol/L BUN 8 L (9-20) mg/dL Creatinine 0.60 L (0.66-1.25) mg/dL Estimated GFR > 60.0 (>60) mL/min BUN/Creatinine Ratio 13.3 (6-22) Glucose 322 H (70-100) mg/dL Calcium 9.1 (8.4-10.2) mg/dL Total Bilirubin 0.5 (0.2-1.3) mg/dL AST 24 (17-59) IU/L ALT 18 (<50) IU/L Alkaline Phosphatase 99 (38-126) U/L NT-Pro-B Natriuret Pep Total Protein 6.8 (6.3-8.2) g/dL Albumin 4.2 (3.5-5.0) g/dL Globulin 2.6 (1.7-4.1) g/dL Albumin/Globulin Ratio 1.6 (1.0-2.8) TSH 0.861 (0.47-4.68) uIU/mL Free T4 1.00 (0.78-2.19) ng/dL Urine Color Urine Appearance Urine pH (4.5-8.0) Ur Specific [place] (1.000-1.035) Urine Protein (Negative) Urine Glucose (UA) (Negative) g/dL Urine Ketones (NEGATIVE) Urine Occult Blood (Negative) Urine Nitrate (Negative) Urine Bilirubin (NEGATIVE) Urine Urobilinogen (0.2) E.U./dL Ur Leukocyte Esterase (NEGATIVE) Urine RBC (0-5/HPF) Urine WBC (0-5/HPF) Urine Bacteria (None) Ur Culture Indicated? Salicylates < 1.0 (<20) mg/dL U Opiates 300ng/mL cut (Negative) Ur Oxycodone Screen (Negative) Urine Methadone Screen (Negative) Acetaminophen < 10 L (10-30) ug/mL Ur Barbiturates Screen (Negative) Total Valproic Acid (50-100) ug/mL U Tricyclic Antidepress (Negative) Ur Phencyclidine Scrn (Negative) Ur Amphetamines Screen (Negative) U Methamphetamines Scrn (Negative) Ur MDMA Scrn (Ecstasy) (Negative) U Benzodiazepines Scrn (Negative) Urine Cocaine Screen (Negative) U Marijuana (THC) Screen (Negative) Ethyl Alcohol < 10 ( - 10) mg/dL SARS-CoV-2 (PCR) (Negative) 08/06/20 08/07/20 08/07/20 Range/Units 17:30 05:55 12:08 WBC (4.5-11.0) X10^3/uL RBC (4.5-5.9) X10^6/uL Hgb (13.5-17.5) g/dL Hct (41-53) % MCV (80-100) fL MCH (26-34) PG MCHC (30-36) % RDW (11.6-14.8) % Plt Count (150-400) X10^3/uL Neut % (Auto) (50-75) % Lymph % (Auto) (25-40) % Mobile % (Auto) (3-14) % Eos % (Auto) (2-4) % Baso % (Auto) (0-2) % Neut # (Auto) (5192-9415) /uL Lymph # (Auto) (1300-8224) /uL Mobile # (Auto) (0-900) /uL Eos # (Auto) (0-450) /uL Baso # (Auto) (0-100) /uL Sodium 135 L 133 L (137-145) mmol/L Potassium 3.7 4.1 (3.4-5.1) mmol/L Chloride 105 102 (98-107) mmol/L Carbon Dioxide 29 27 (22-32) mmol/L BUN 10 12 (9-20) mg/dL Creatinine 0.71 0.69 (0.66-1.25) mg/dL Estimated GFR > 60.0 > 60.0 (>60) mL/min BUN/Creatinine Ratio 14.1 17.4 (6-22) Glucose 130 H D 322 H D (70-100) mg/dL Calcium 9.2 9.4 (8.4-10.2) mg/dL Total Bilirubin (0.2-1.3) mg/dL AST (17-59) IU/L ALT (<50) IU/L Alkaline Phosphatase (38-126) U/L NT-Pro-B Natriuret Pep Total Protein (6.3-8.2) g/dL Albumin (3.5-5.0) g/dL Globulin (1.7-4.1) g/dL Albumin/Globulin Ratio (1.0-2.8) TSH (0.47-4.68) uIU/mL Free T4 (0.78-2.19) ng/dL Urine Color Urine Appearance Urine pH (4.5-8.0) Ur Specific [place] (1.000-1.035) Urine Protein (Negative) Urine Glucose (UA) (Negative) g/dL Urine Ketones (NEGATIVE) Urine Occult Blood (Negative) Urine Nitrate (Negative) Urine Bilirubin (NEGATIVE) Urine Urobilinogen (0.2) E.U./dL Ur Leukocyte Esterase (NEGATIVE) Urine RBC (0-5/HPF) Urine WBC (0-5/HPF) Urine Bacteria (None) Ur Culture Indicated? Salicylates (<20) mg/dL U Opiates 300ng/mL cut (Negative) Ur Oxycodone Screen (Negative) Urine Methadone Screen (Negative) Acetaminophen (10-30) ug/mL Ur Barbiturates Screen (Negative) Total Valproic Acid < 4 L (50-100) ug/mL U Tricyclic Antidepress (Negative) Ur Phencyclidine Scrn (Negative) Ur Amphetamines Screen (Negative) U Methamphetamines Scrn (Negative) Ur MDMA Scrn (Ecstasy) (Negative) U Benzodiazepines Scrn (Negative) Urine Cocaine Screen (Negative) U Marijuana (THC) Screen (Negative) Ethyl Alcohol ( - 10) mg/dL SARS-CoV-2 (PCR) (Negative) 08/07/20 08/07/20 08/07/20 Range/Units 14:44 17:54 17:54 WBC (4.5-11.0) X10^3/uL RBC (4.5-5.9) X10^6/uL Hgb (13.5-17.5) g/dL Hct (41-53) % MCV (80-100) fL MCH (26-34) PG MCHC (30-36) % RDW (11.6-14.8) % Plt Count (150-400) X10^3/uL Neut % (Auto) (50-75) % Lymph % (Auto) (25-40) % Mobile % (Auto) (3-14) % Eos % (Auto) (2-4) % Baso % (Auto) (0-2) % Neut # (Auto) (1927-9866) /uL Lymph # (Auto) (3155-0795) /uL Mobile # (Auto) (0-900) /uL Eos # (Auto) (0-450) /uL Baso # (Auto) (0-100) /uL Sodium 131 L 132 L (137-145) mmol/L Potassium 4.0 4.2 (3.4-5.1) mmol/L Chloride 102 106 (98-107) mmol/L Carbon Dioxide 26 24 (22-32) mmol/L BUN 12 10 (9-20) mg/dL Creatinine 0.70 0.63 L (0.66-1.25) mg/dL Estimated GFR > 60.0 > 60.0 (>60) mL/min BUN/Creatinine Ratio 17.1 15.9 (6-22) Glucose 310 H 294 H (70-100) mg/dL Calcium 8.7 8.6 (8.4-10.2) mg/dL Total Bilirubin (0.2-1.3) mg/dL AST (17-59) IU/L ALT (<50) IU/L Alkaline Phosphatase (38-126) U/L NT-Pro-B Natriuret Pep Cancelled Total Protein (6.3-8.2) g/dL Albumin (3.5-5.0) g/dL Globulin (1.7-4.1) g/dL Albumin/Globulin Ratio (1.0-2.8) TSH (0.47-4.68) uIU/mL Free T4 (0.78-2.19) ng/dL Urine Color Urine Appearance Urine pH (4.5-8.0) Ur Specific [place] (1.000-1.035) Urine Protein (Negative) Urine Glucose (UA) (Negative) g/dL Urine Ketones (NEGATIVE) Urine Occult Blood (Negative) Urine Nitrate (Negative) Urine Bilirubin (NEGATIVE) Urine Urobilinogen (0.2) E.U./dL Ur Leukocyte Esterase (NEGATIVE) Urine RBC (0-5/HPF) Urine WBC (0-5/HPF) Urine Bacteria (None) Ur Culture Indicated? Salicylates (<20) mg/dL U Opiates 300ng/mL cut (Negative) Ur Oxycodone Screen (Negative) Urine Methadone Screen (Negative) Acetaminophen (10-30) ug/mL Ur Barbiturates Screen (Negative) Total Valproic Acid (50-100) ug/mL U Tricyclic Antidepress (Negative) Ur Phencyclidine Scrn (Negative) Ur Amphetamines Screen (Negative) U Methamphetamines Scrn (Negative) Ur MDMA Scrn (Ecstasy) (Negative) U Benzodiazepines Scrn (Negative) Urine Cocaine Screen (Negative) U Marijuana (THC) Screen (Negative) Ethyl Alcohol ( - 10) mg/dL SARS-CoV-2 (PCR) (Negative) 08/07/20 Range/Units 20:37 WBC (4.5-11.0) X10^3/uL RBC (4.5-5.9) X10^6/uL Hgb (13.5-17.5) g/dL Hct (41-53) % MCV (80-100) fL MCH (26-34) PG MCHC (30-36) % RDW (11.6-14.8) % Plt Count (150-400) X10^3/uL Neut % (Auto) (50-75) % Lymph % (Auto) (25-40) % Mobile % (Auto) (3-14) % Eos % (Auto) (2-4) % Baso % (Auto) (0-2) % Neut # (Auto) (8495-3430) /uL Lymph # (Auto) (2365-9897) /uL Mobile # (Auto) (0-900) /uL Eos # (Auto) (0-450) /uL Baso # (Auto) (0-100) /uL Sodium 136 L (137-145) mmol/L Potassium 3.7 (3.4-5.1) mmol/L Chloride 105 (98-107) mmol/L Carbon Dioxide 28 (22-32) mmol/L BUN 9 (9-20) mg/dL Creatinine 0.72 (0.66-1.25) mg/dL Estimated GFR > 60.0 (>60) mL/min BUN/Creatinine Ratio 12.5 (6-22) Glucose 194 H D (70-100) mg/dL Calcium 9.0 (8.4-10.2) mg/dL Total Bilirubin (0.2-1.3) mg/dL AST (17-59) IU/L ALT (<50) IU/L Alkaline Phosphatase (38-126) U/L NT-Pro-B Natriuret Pep Total Protein (6.3-8.2) g/dL Albumin (3.5-5.0) g/dL Globulin (1.7-4.1) g/dL Albumin/Globulin Ratio (1.0-2.8) TSH (0.47-4.68) uIU/mL Free T4 (0.78-2.19) ng/dL Urine Color Urine Appearance Urine pH (4.5-8.0) Ur Specific [place] (1.000-1.035) Urine Protein (Negative) Urine Glucose (UA) (Negative) g/dL Urine Ketones (NEGATIVE) Urine Occult Blood (Negative) Urine Nitrate (Negative) Urine Bilirubin (NEGATIVE) Urine Urobilinogen (0.2) E.U./dL Ur Leukocyte Esterase (NEGATIVE) Urine RBC (0-5/HPF) Urine WBC (0-5/HPF) Urine Bacteria (None) Ur Culture Indicated? Salicylates (<20) mg/dL U Opiates 300ng/mL cut (Negative) Ur Oxycodone Screen (Negative) Urine Methadone Screen (Negative) Acetaminophen (10-30) ug/mL Ur Barbiturates Screen (Negative) Total Valproic Acid (50-100) ug/mL U Tricyclic Antidepress (Negative) Ur Phencyclidine Scrn (Negative) Ur Amphetamines Screen (Negative) U Methamphetamines Scrn (Negative) Ur MDMA Scrn (Ecstasy) (Negative) U Benzodiazepines Scrn (Negative) Urine Cocaine Screen (Negative) U Marijuana (THC) Screen (Negative) Ethyl Alcohol ( - 10) mg/dL SARS-CoV-2 (PCR) (Negative) Point of Care Testing Glucose POC 171 <Khanh Raymundo, DO - Last Filed: 08/08/20 02:29> Lab Data Labs: Lab Results 08/06/20 08/06/20 08/06/20 Range/Units 17:02 17:02 17:14 WBC (4.5-11.0) X10^3/uL RBC (4.5-5.9) X10^6/uL Hgb (13.5-17.5) g/dL Hct (41-53) % MCV (80-100) fL MCH (26-34) PG MCHC (30-36) % RDW (11.6-14.8) % Plt Count (150-400) X10^3/uL Neut % (Auto) (50-75) % Lymph % (Auto) (25-40) % Mobile % (Auto) (3-14) % Eos % (Auto) (2-4) % Baso % (Auto) (0-2) % Neut # (Auto) (8762-6363) /uL Lymph # (Auto) (7706-4349) /uL Mobile # (Auto) (0-900) /uL Eos # (Auto) (0-450) /uL Baso # (Auto) (0-100) /uL Sodium (137-145) mmol/L Potassium (3.4-5.1) mmol/L Chloride (98-107) mmol/L Carbon Dioxide (22-32) mmol/L BUN (9-20) mg/dL Creatinine (0.66-1.25) mg/dL Estimated GFR (>60) mL/min BUN/Creatinine Ratio (6-22) Glucose (70-100) mg/dL Calcium (8.4-10.2) mg/dL Total Bilirubin (0.2-1.3) mg/dL AST (17-59) IU/L ALT (<50) IU/L Alkaline Phosphatase (38-126) U/L NT-Pro-B Natriuret Pep Total Protein (6.3-8.2) g/dL Albumin (3.5-5.0) g/dL Globulin (1.7-4.1) g/dL Albumin/Globulin Ratio (1.0-2.8) TSH (0.47-4.68) uIU/mL Free T4 (0.78-2.19) ng/dL Urine Color Yellow Urine Appearance Clear Urine pH 5.5 (4.5-8.0) Ur Specific [place] 1.010 (1.000-1.035) Urine Protein Negative (Negative) Urine Glucose (UA) 2+ H (Negative) g/dL Urine Ketones Trace H (NEGATIVE) Urine Occult Blood Negative (Negative) Urine Nitrate Negative (Negative) Urine Bilirubin Negative (NEGATIVE) Urine Urobilinogen 0.2 (0.2) E.U./dL Ur Leukocyte Esterase Negative (NEGATIVE) Urine RBC 0-1/hpf (0-5/HPF) Urine WBC 0-1/hpf (0-5/HPF) Urine Bacteria None seen (None) Ur Culture Indicated? Cult not indicated Salicylates (<20) mg/dL U Opiates 300ng/mL cut Negative (Negative) Ur Oxycodone Screen Negative (Negative) Urine Methadone Screen Negative (Negative) Acetaminophen (10-30) ug/mL Ur Barbiturates Screen Negative (Negative) Total Valproic Acid (50-100) ug/mL U Tricyclic Antidepress Negative (Negative) Ur Phencyclidine Scrn Negative (Negative) Ur Amphetamines Screen Negative (Negative) U Methamphetamines Scrn Negative (Negative) Ur MDMA Scrn (Ecstasy) Negative (Negative) U Benzodiazepines Scrn Negative (Negative) Urine Cocaine Screen Negative (Negative) U Marijuana (THC) Screen Negative (Negative) Ethyl Alcohol ( - 10) mg/dL SARS-CoV-2 (PCR) Negative (Negative) 08/06/20 08/06/20 08/06/20 Range/Units 17:16 17:16 17:16 WBC 7.0 (4.5-11.0) X10^3/uL RBC 5.35 (4.5-5.9) X10^6/uL Hgb 16.2 (13.5-17.5) g/dL Hct 47.8 (41-53) % MCV 89.5 (80-100) fL MCH 30.2 (26-34) PG MCHC 33.8 (30-36) % RDW 14.2 (11.6-14.8) % Plt Count 182 (150-400) X10^3/uL Neut % (Auto) 69.8 (50-75) % Lymph % (Auto) 21.4 L (25-40) % Mobile % (Auto) 6.0 (3-14) % Eos % (Auto) 1.8 L (2-4) % Baso % (Auto) 1.0 (0-2) % Neut # (Auto) 4900 (8776-8785) /uL Lymph # (Auto) 1500 (7071-0575) /uL Mobile # (Auto) 400 (0-900) /uL Eos # (Auto) 100 (0-450) /uL Baso # (Auto) 100 (0-100) /uL Sodium 131 L (137-145) mmol/L Potassium 3.6 (3.4-5.1) mmol/L Chloride 100 (98-107) mmol/L Carbon Dioxide 23 (22-32) mmol/L BUN 8 L (9-20) mg/dL Creatinine 0.60 L (0.66-1.25) mg/dL Estimated GFR > 60.0 (>60) mL/min BUN/Creatinine Ratio 13.3 (6-22) Glucose 322 H (70-100) mg/dL Calcium 9.1 (8.4-10.2) mg/dL Total Bilirubin 0.5 (0.2-1.3) mg/dL AST 24 (17-59) IU/L ALT 18 (<50) IU/L Alkaline Phosphatase 99 (38-126) U/L NT-Pro-B Natriuret Pep Total Protein 6.8 (6.3-8.2) g/dL Albumin 4.2 (3.5-5.0) g/dL Globulin 2.6 (1.7-4.1) g/dL Albumin/Globulin Ratio 1.6 (1.0-2.8) TSH 0.861 (0.47-4.68) uIU/mL Free T4 1.00 (0.78-2.19) ng/dL Urine Color Urine Appearance Urine pH (4.5-8.0) Ur Specific [place] (1.000-1.035) Urine Protein (Negative) Urine Glucose (UA) (Negative) g/dL Urine Ketones (NEGATIVE) Urine Occult Blood (Negative) Urine Nitrate (Negative) Urine Bilirubin (NEGATIVE) Urine Urobilinogen (0.2) E.U./dL Ur Leukocyte Esterase (NEGATIVE) Urine RBC (0-5/HPF) Urine WBC (0-5/HPF) Urine Bacteria (None) Ur Culture Indicated? Salicylates < 1.0 (<20) mg/dL U Opiates 300ng/mL cut (Negative) Ur Oxycodone Screen (Negative) Urine Methadone Screen (Negative) Acetaminophen < 10 L (10-30) ug/mL Ur Barbiturates Screen (Negative) Total Valproic Acid (50-100) ug/mL U Tricyclic Antidepress (Negative) Ur Phencyclidine Scrn (Negative) Ur Amphetamines Screen (Negative) U Methamphetamines Scrn (Negative) Ur MDMA Scrn (Ecstasy) (Negative) U Benzodiazepines Scrn (Negative) Urine Cocaine Screen (Negative) U Marijuana (THC) Screen (Negative) Ethyl Alcohol < 10 ( - 10) mg/dL SARS-CoV-2 (PCR) (Negative) 08/06/20 08/07/20 08/07/20 Range/Units 17:30 05:55 12:08 WBC (4.5-11.0) X10^3/uL RBC (4.5-5.9) X10^6/uL Hgb (13.5-17.5) g/dL Hct (41-53) % MCV (80-100) fL MCH (26-34) PG MCHC (30-36) % RDW (11.6-14.8) % Plt Count (150-400) X10^3/uL Neut % (Auto) (50-75) % Lymph % (Auto) (25-40) % Mobile % (Auto) (3-14) % Eos % (Auto) (2-4) % Baso % (Auto) (0-2) % Neut # (Auto) (5428-8379) /uL Lymph # (Auto) (8366-7137) /uL Mobile # (Auto) (0-900) /uL Eos # (Auto) (0-450) /uL Baso # (Auto) (0-100) /uL Sodium 135 L 133 L (137-145) mmol/L Potassium 3.7 4.1 (3.4-5.1) mmol/L Chloride 105 102 (98-107) mmol/L Carbon Dioxide 29 27 (22-32) mmol/L BUN 10 12 (9-20) mg/dL Creatinine 0.71 0.69 (0.66-1.25) mg/dL Estimated GFR > 60.0 > 60.0 (>60) mL/min BUN/Creatinine Ratio 14.1 17.4 (6-22) Glucose 130 H D 322 H D (70-100) mg/dL Calcium 9.2 9.4 (8.4-10.2) mg/dL Total Bilirubin (0.2-1.3) mg/dL AST (17-59) IU/L ALT (<50) IU/L Alkaline Phosphatase (38-126) U/L NT-Pro-B Natriuret Pep Total Protein (6.3-8.2) g/dL Albumin (3.5-5.0) g/dL Globulin (1.7-4.1) g/dL Albumin/Globulin Ratio (1.0-2.8) TSH (0.47-4.68) uIU/mL Free T4 (0.78-2.19) ng/dL Urine Color Urine Appearance Urine pH (4.5-8.0) Ur Specific [place] (1.000-1.035) Urine Protein (Negative) Urine Glucose (UA) (Negative) g/dL Urine Ketones (NEGATIVE) Urine Occult Blood (Negative) Urine Nitrate (Negative) Urine Bilirubin (NEGATIVE) Urine Urobilinogen (0.2) E.U./dL Ur Leukocyte Esterase (NEGATIVE) Urine RBC (0-5/HPF) Urine WBC (0-5/HPF) Urine Bacteria (None) Ur Culture Indicated? Salicylates (<20) mg/dL U Opiates 300ng/mL cut (Negative) Ur Oxycodone Screen (Negative) Urine Methadone Screen (Negative) Acetaminophen (10-30) ug/mL Ur Barbiturates Screen (Negative) Total Valproic Acid < 4 L (50-100) ug/mL U Tricyclic Antidepress (Negative) Ur Phencyclidine Scrn (Negative) Ur Amphetamines Screen (Negative) U Methamphetamines Scrn (Negative) Ur MDMA Scrn (Ecstasy) (Negative) U Benzodiazepines Scrn (Negative) Urine Cocaine Screen (Negative) U Marijuana (THC) Screen (Negative) Ethyl Alcohol ( - 10) mg/dL SARS-CoV-2 (PCR) (Negative) 08/07/20 08/07/20 08/07/20 Range/Units 14:44 17:54 17:54 WBC (4.5-11.0) X10^3/uL RBC (4.5-5.9) X10^6/uL Hgb (13.5-17.5) g/dL Hct (41-53) % MCV (80-100) fL MCH (26-34) PG MCHC (30-36) % RDW (11.6-14.8) % Plt Count (150-400) X10^3/uL Neut % (Auto) (50-75) % Lymph % (Auto) (25-40) % Mobile % (Auto) (3-14) % Eos % (Auto) (2-4) % Baso % (Auto) (0-2) % Neut # (Auto) (6740-5963) /uL Lymph # (Auto) (3023-0397) /uL Mobile # (Auto) (0-900) /uL Eos # (Auto) (0-450) /uL Baso # (Auto) (0-100) /uL Sodium 131 L 132 L (137-145) mmol/L Potassium 4.0 4.2 (3.4-5.1) mmol/L Chloride 102 106 (98-107) mmol/L Carbon Dioxide 26 24 (22-32) mmol/L BUN 12 10 (9-20) mg/dL Creatinine 0.70 0.63 L (0.66-1.25) mg/dL Estimated GFR > 60.0 > 60.0 (>60) mL/min BUN/Creatinine Ratio 17.1 15.9 (6-22) Glucose 310 H 294 H (70-100) mg/dL Calcium 8.7 8.6 (8.4-10.2) mg/dL Total Bilirubin (0.2-1.3) mg/dL AST (17-59) IU/L ALT (<50) IU/L Alkaline Phosphatase (38-126) U/L NT-Pro-B Natriuret Pep Cancelled Total Protein (6.3-8.2) g/dL Albumin (3.5-5.0) g/dL Globulin (1.7-4.1) g/dL Albumin/Globulin Ratio (1.0-2.8) TSH (0.47-4.68) uIU/mL Free T4 (0.78-2.19) ng/dL Urine Color Urine Appearance Urine pH (4.5-8.0) Ur Specific [place] (1.000-1.035) Urine Protein (Negative) Urine Glucose (UA) (Negative) g/dL Urine Ketones (NEGATIVE) Urine Occult Blood (Negative) Urine Nitrate (Negative) Urine Bilirubin (NEGATIVE) Urine Urobilinogen (0.2) E.U./dL Ur Leukocyte Esterase (NEGATIVE) Urine RBC (0-5/HPF) Urine WBC (0-5/HPF) Urine Bacteria (None) Ur Culture Indicated? Salicylates (<20) mg/dL U Opiates 300ng/mL cut (Negative) Ur Oxycodone Screen (Negative) Urine Methadone Screen (Negative) Acetaminophen (10-30) ug/mL Ur Barbiturates Screen (Negative) Total Valproic Acid (50-100) ug/mL U Tricyclic Antidepress (Negative) Ur Phencyclidine Scrn (Negative) Ur Amphetamines Screen (Negative) U Methamphetamines Scrn (Negative) Ur MDMA Scrn (Ecstasy) (Negative) U Benzodiazepines Scrn (Negative) Urine Cocaine Screen (Negative) U Marijuana (THC) Screen (Negative) Ethyl Alcohol ( - 10) mg/dL SARS-CoV-2 (PCR) (Negative) 08/07/20 Range/Units 20:37 WBC (4.5-11.0) X10^3/uL RBC (4.5-5.9) X10^6/uL Hgb (13.5-17.5) g/dL Hct (41-53) % MCV (80-100) fL MCH (26-34) PG MCHC (30-36) % RDW (11.6-14.8) % Plt Count (150-400) X10^3/uL Neut % (Auto) (50-75) % Lymph % (Auto) (25-40) % Mobile % (Auto) (3-14) % Eos % (Auto) (2-4) % Baso % (Auto) (0-2) % Neut # (Auto) (3132-0358) /uL Lymph # (Auto) (0691-7046) /uL Mobile # (Auto) (0-900) /uL Eos # (Auto) (0-450) /uL Baso # (Auto) (0-100) /uL Sodium 136 L (137-145) mmol/L Potassium 3.7 (3.4-5.1) mmol/L Chloride 105 (98-107) mmol/L Carbon Dioxide 28 (22-32) mmol/L BUN 9 (9-20) mg/dL Creatinine 0.72 (0.66-1.25) mg/dL Estimated GFR > 60.0 (>60) mL/min BUN/Creatinine Ratio 12.5 (6-22) Glucose 194 H D (70-100) mg/dL Calcium 9.0 (8.4-10.2) mg/dL Total Bilirubin (0.2-1.3) mg/dL AST (17-59) IU/L ALT (<50) IU/L Alkaline Phosphatase (38-126) U/L NT-Pro-B Natriuret Pep Total Protein (6.3-8.2) g/dL Albumin (3.5-5.0) g/dL Globulin (1.7-4.1) g/dL Albumin/Globulin Ratio (1.0-2.8) TSH (0.47-4.68) uIU/mL Free T4 (0.78-2.19) ng/dL Urine Color Urine Appearance Urine pH (4.5-8.0) Ur Specific [place] (1.000-1.035) Urine Protein (Negative) Urine Glucose (UA) (Negative) g/dL Urine Ketones (NEGATIVE) Urine Occult Blood (Negative) Urine Nitrate (Negative) Urine Bilirubin (NEGATIVE) Urine Urobilinogen (0.2) E.U./dL Ur Leukocyte Esterase (NEGATIVE) Urine RBC (0-5/HPF) Urine WBC (0-5/HPF) Urine Bacteria (None) Ur Culture Indicated? Salicylates (<20) mg/dL U Opiates 300ng/mL cut (Negative) Ur Oxycodone Screen (Negative) Urine Methadone Screen (Negative) Acetaminophen (10-30) ug/mL Ur Barbiturates Screen (Negative) Total Valproic Acid (50-100) ug/mL U Tricyclic Antidepress (Negative) Ur Phencyclidine Scrn (Negative) Ur Amphetamines Screen (Negative) U Methamphetamines Scrn (Negative) Ur MDMA Scrn (Ecstasy) (Negative) U Benzodiazepines Scrn (Negative) Urine Cocaine Screen (Negative) U Marijuana (THC) Screen (Negative) Ethyl Alcohol ( - 10) mg/dL SARS-CoV-2 (PCR) (Negative) Point of Care Testing Glucose POC 171 MDM Narrative Medical decision making narrative: Dr raymundo: Received turned over. Reviewed patient's history and physical. Received call that [facility] was unwilling to take the patient because of his elevated blood sugar and the pseudo hyponatremia. Given his blood sugar at the time he has a normal sodium when corrected for this elevation in the blood sugar. I called and talked with the intake nurse asking for what their specific parameters were. She initially could not provide any parameters so I asked to speak with the accepting provider. They contacted back with completely arbitrary numbers of a sodium greater than 134 and a glucose less than 230. Patient was given insulin. His blood sugar is less than 230. His sodium is now normal because his glucose is normal. Patient is continued to remain stable and has been medically cleared. These lab reports were faxed and the patient was accepted. Patient continues to be voluntary. Will transport in the morning for psychiatric evaluation and treatment. <Kyle Massey, DO - Last Filed: 08/08/20 09:34> Critical Care Time Critical Care Time: Yes Total Critical Care Time: 90 Attestation: The high probability of a clinically significant, sudden or life threatening deterioration of the [CV/GI] system(s) required my full and direct attention, intervention and personal management. The aggregate critical care time was [90] minutes. This time is in addition to time spent performing reported procedures but includes the following: [x] Data Review and interpretation [x] Patient assessment and monitoring of vital signs [x] Documentation [x] Medication orders and management Discharge Plan Departure Patient Disposition: Xfer Psychiatric Hosp Clinical Impression: Suicidal ideation, Diabetes
[2020-08-06 17:25] LABS: Add Manual Diff / Slide Review NO; Basophils Absolute Auto 100 /uL (0-100); Eosinophils Absolute Auto 100 /uL (0-450); Eosinophils Percent Auto 1.8 % (2-4); Hematocrit 47.8 % (41-53); Hemoglobin 16.2 g/dL (13.5-17.5); Lymphocytes Absolute Auto 1500 /uL (1100-4500); Lymphocytes Percent Auto 21.4 % (25-40); Mean Corpuscular HGB Conc 33.8 % (30-36); Mean Corpuscular Hemoglobin 30.2 PG (26-34); Mean Corpuscular Volume 89.5 fL (80-100); Monocytes Absolute Auto 400 /uL (0-900); Neutrophils Absolute Auto 4900 /uL (1500-7000); Neutrophils Percent Auto 69.8 % (50-75); Platelet Count 182 X10^3/uL (150-400); Red Blood Cell Count 5.35 X10^6/uL (4.5-5.9); Red Cell Distribution Width 14.2 % (11.6-14.8)
[2020-08-06 17:37] LABS: Bacteria Urine None Seen
[2020-08-06 17:37] LABS: Acetaminophen < 10 ug/mL (10-30); Alanine Aminotransferase 18 IU/L (<50); Albumin 4.2 g/dL (3.5-5.0); Albumin Globulin Ratio 1.6 (1.0-2.8); Alkaline Phosphatase 99 U/L (38-126); Aspartate Aminotransferase 24 IU/L (17-59); BUN Creatinine Ratio 13.3 (6-22); Bilirubin Total 0.5 mg/dL (0.2-1.3); Blood Urea Nitrogen 8 mg/dL (9-20); Calcium 9.1 mg/dL (8.4-10.2); Carbon Dioxide 23 mmol/L (22-32); Chloride 100 mmol/L (98-107); Estimated Glomerular Filt Rate > 60.0 mL/min (>60); Ethanol (ETOH) < 10 mg/dL; Globulin 2.6 g/dL (1.7-4.1); Glucose 322 mg/dL (70-100); HEMOLYSIS < 15 (0-50); Potassium 3.6 mmol/L (3.4-5.1); Salicylate < 1.0 mg/dL (<20); Sodium 131 mmol/L (137-145); Total Protein 6.8 g/dL (6.3-8.2)
[2020-08-06] MEDS: LORazepam 0.5 MG TABLET 2 MG PO ×3 (17:37→23:43)
[2020-08-06] MEDS: NICOTINE 21 MG PATCH TOP (17:37)
[2020-08-06 17:42] LABS: Appearance Urine UA CLEAR; Bilirubin Urine UA NEGATIVE (NEGATIVE); Color Urine UA YELLOW; Glucose Urine UA 2+ g/dL (Negative); Ketones Urine UA TRACE (NEGATIVE); Leukocyte Esterase Urine UA NEGATIVE (NEGATIVE); Nitrite Urine UA NEGATIVE (Negative); Occult Blood Urine UA NEGATIVE (Negative); Protein Urine UA NEGATIVE (Negative); Urobilinogen Urine UA 0.2 E.U./dL (0.2); pH Urine UA 5.5 (4.5-8.0)
[2020-08-06 17:47] LABS: UR Morphine/Opiate cutoff 300 Negative (Negative); Ur Creatinine Normal (Normal); Ur Specific Gravity Normal (Normal); Urine Amphetamines Negative (Negative); Urine Barbiturates Negative (Negative); Urine Benzodiazepines Negative (Negative); Urine Cocaine Negative (Negative); Urine MDMA Negative (Negative); Urine Methadone Negative (Negative); Urine Methamphetamines Negative (Negative); Urine Oxycodone Negative (Negative); Urine Phencyclidine Negative (Negative); Urine Tetrahydrocannabinol Negative (Negative); Urine Tricyclic Antidepressant Negative (Negative); Urine pH Normal (Normal)
--- NOTE | 2020-08-06 17:48 | PC.NURSE ---
provider okay for patient to eat. a safety dinner tray was ordered and provided for the patient. patient sitting up in bed eating.
[2020-08-06 17:49] LABS: Culture Indicated Urine Cult Not Indicated; RBC Urine 0-1/HPF (0-5/HPF); WBC Urine 0-1/HPF (0-5/HPF)
[2020-08-06 18:07] LABS: Thyroid Stimulating Hormone 0.861 uIU/mL (0.47-4.68)
[2020-08-06 18:21] LABS: COVID19 -Nasal RAPID Negative (Negative)
[2020-08-06 18:37] VITALS: BP 136/86; PULSE 110; RESP 16; O2SAT 97
[2020-08-06] MEDS: lamoTRIgine 25 MG CHEW TABLET PO (21:52)
[2020-08-06] MEDS: INSULIN GLARGINE 100 UNIT/ML 10ML VIAL 10 UNIT SUBCUT (21:53)
--- NOTE | 2020-08-06 23:26 | PC.NURSE ---
Jaya called from [facility] and requested that we repeat the sodium level and that the level needs to be 135 to be accepted. Jaya also reported that [facility] needs to see that his blood sugars are coming down. provider aware.
[2020-08-06] MEDS: SODIUM CHLORIDE 0.9% 1,000 ML 1000 ML IV (23:42)
[2020-08-06] MEDS: INSULIN REGULAR 100 UNIT/ML 3 ML VIAL SUBCUT (23:44)
[2020-08-07] MEDS: INSULIN REGULAR 100 UNIT/ML 3 ML VIAL 10 UNIT SUBCUT ×4 (01:06→20:10)
[2020-08-07] MEDS: LORazepam 0.5 MG TABLET 2 MG PO (03:29)
[2020-08-07 06:20] LABS: BUN Creatinine Ratio 14.1 (6-22); Blood Urea Nitrogen 10 mg/dL (9-20); Calcium 9.2 mg/dL (8.4-10.2); Carbon Dioxide 29 mmol/L (22-32); Chloride 105 mmol/L (98-107); Estimated Glomerular Filt Rate > 60.0 mL/min (>60); Glucose 130 mg/dL (70-100); HEMOLYSIS < 15 (0-50); Potassium 3.7 mmol/L (3.4-5.1); Sodium 135 mmol/L (137-145)
[2020-08-07 08:08] VITALS: BP 113/74; PULSE 74; RESP 17; TEMP 36.2; O2SAT 98
[2020-08-07] MEDS: INSULIN ASPART 100 UNIT/ML INSULN PEN SUBCUT ×2 (08:56→14:12)
--- NOTE | 2020-08-07 11:35 | CM.SWNOTE ---
LAPPING MACHINE OPERATOR note LAPPING MACHINE OPERATOR reviews chart and calls [facility]. LAPPING MACHINE OPERATOR reviews labs with Do at [facility], who informs LAPPING MACHINE OPERATOR that new labs should be drawn and sent to [facility] for review. Do informs LAPPING MACHINE OPERATOR that they would be able to provide an acceptance for today, but likely do not have a bed until tomorrow. LAPPING MACHINE OPERATOR discusses this with patient, and ED provider Dr. Massey. Both are agreeable to patient remaining in ED for a transfer to [facility] tomorrow morning. Dr. Massey to order new labs. Pl: LAPPING MACHINE OPERATOR will fax new labs to [facility] once results are in. BRANDY Flanagan
[2020-08-07 12:03] VITALS: BP 121/91; PULSE 98; RESP 17; TEMP 36.4; O2SAT 96
--- NOTE | 2020-08-07 12:28 | PC.NURSE ---
reported to dr. diallo that pt requested nicotine patch and ativan.
[2020-08-07 12:30] LABS: BUN Creatinine Ratio 17.4 (6-22); Blood Urea Nitrogen 12 mg/dL (9-20); Calcium 9.4 mg/dL (8.4-10.2); Carbon Dioxide 27 mmol/L (22-32); Chloride 102 mmol/L (98-107); Estimated Glomerular Filt Rate > 60.0 mL/min (>60); Glucose 322 mg/dL (70-100); HEMOLYSIS < 15 (0-50); Potassium 4.1 mmol/L (3.4-5.1); Sodium 133 mmol/L (137-145)
[2020-08-07] MEDS: LORazepam 2 MG/ML INJ 1 MG IV ×3 (13:06→22:47)
[2020-08-07] MEDS: SODIUM CHLORIDE 0.9% 1,000 ML 1000 ML IV ×2 (13:06→17:00)
[2020-08-07] MEDS: INSULIN REGULAR 100 UNIT/ML 3 ML VIAL SUBCUT (13:07)
--- NOTE | 2020-08-07 13:34 | PC.NURSE ---
pt. resting in room. no needs at this time.
[2020-08-07 15:08] LABS: BUN Creatinine Ratio 17.1 (6-22); Blood Urea Nitrogen 12 mg/dL (9-20); Calcium 8.7 mg/dL (8.4-10.2); Carbon Dioxide 26 mmol/L (22-32); Chloride 102 mmol/L (98-107); Estimated Glomerular Filt Rate > 60.0 mL/min (>60); Glucose 310 mg/dL (70-100); HEMOLYSIS 22 (0-50); Sodium 131 mmol/L (137-145)
[2020-08-07] MEDS: NICOTINE 21 MG PATCH TOP (17:00)
[2020-08-07 17:10] VITALS: BP 142/96; PULSE 96; RESP 16; O2SAT 99
[2020-08-07 18:24] LABS: BUN Creatinine Ratio 15.9 (6-22); Blood Urea Nitrogen 10 mg/dL (9-20); Calcium 8.6 mg/dL (8.4-10.2); Carbon Dioxide 24 mmol/L (22-32); Chloride 106 mmol/L (98-107); Estimated Glomerular Filt Rate > 60.0 mL/min (>60); Glucose 294 mg/dL (70-100); Potassium 4.2 mmol/L (3.4-5.1); Sodium 132 mmol/L (137-145)
[2020-08-07 18:26] LABS: HEMOLYSIS 94 (0-50)
--- NOTE | 2020-08-07 19:18 | PC.NURSE ---
pt requesting his phone be charged at nurses station and asking for book to read. pt requesting visitors and is again reminded of visitor policy.
--- NOTE | 2020-08-07 19:19 | CM.SWNOTE ---
BLOOD COLLECTOR note BLOOD COLLECTOR is informed by RN that patient and mother, Nahomy, would like to meet with patient. Patient?s mother in patient room. BLOOD COLLECTOR enters room. Patient provides consent for BLOOD COLLECTOR to discuss all previous conversations with patient?s mother. Patient provides overview of his current situation and concerns since leaving [place]. Patient expresses that he feels like his ?being unmedicated?, ETOH use, and constant feeling of shame and isolation are leading to escalatory negative actions. Patient explains that he feels as though these ?explosions are getting brighter? and happening with less instigation than before. Patient explains that he is still feeling suicidal and continues to endorse planning to end his life by driving his car into a ?structure? at a high rate of speed. BLOOD COLLECTOR notices more tangential thinking compared to previous interactions and presence of pressured speech. Patient?s mother expresses concern for patient and concerns regarding the short-term nature of psychiatric hospitalization. BLOOD COLLECTOR explains that the goal of psychiatric hospitalization is to achieve stabilization, and that services after a period of hospitalization are critically important in maintaining patient?s psychiatric health. BLOOD COLLECTOR explains current status in process of working with [facility]/pending lab results. Patient and mother indicate understanding. BLOOD COLLECTOR calls [facility] and reviews current lab results with Eva. Joseph later calls BLOOD COLLECTOR back and informs BLOOD COLLECTOR that provider on duty stated that patient?s labs need to be ?more within normal range? prior to acceptance. BLOOD COLLECTOR informs Dr. Raymundo, who contacts [facility] and arranges a [id number] call. Pl: Dr. Raymundo to staff with [facility] provider and continue pursuing inpatient psychiatric bed at [facility]. BRANDY Flanagan
[2020-08-07] MEDS: lamoTRIgine 25 MG CHEW TABLET PO (20:33)
[2020-08-07 20:57] LABS: BUN Creatinine Ratio 12.5 (6-22); Blood Urea Nitrogen 9 mg/dL (9-20); Carbon Dioxide 28 mmol/L (22-32); Chloride 105 mmol/L (98-107); Estimated Glomerular Filt Rate > 60.0 mL/min (>60); Glucose 194 mg/dL (70-100); HEMOLYSIS < 15 (0-50); Potassium 3.7 mmol/L (3.4-5.1); Sodium 136 mmol/L (137-145)
--- NOTE | 2020-08-07 22:01 | PC.NURSE ---
Chloe from [facility] called to let us know that patient is accepted at [facility]. Brennen CUENCA is the provider who accepted the patient. nurse to nurse when patient leaves [facility] at [phone] and ask for [address] Raymundo aware and we will set up for transport. patient can arrive to [facility] at 8:00 am on Friday08/08/20.
[2020-08-07 22:56] VITALS: BP 135/85; PULSE 103; RESP 18; TEMP 36.7; O2SAT 98
--- NOTE | 2020-08-08 01:16 | PC.NURSE ---
pt reading on phone
[2020-08-08] MEDS: diphenhydrAMINE 50 MG/ML VIAL 25 MG IM (03:33)
[2020-08-08 04:42] LABS: Valproic Acid (Depakene) Total < 4 ug/mL (50-100)
[2020-08-08 07:30] VITALS: BP 134/84; PULSE 99; RESP 18; O2SAT 97
--- NOTE | 2020-08-08 08:28 | PC.NURSE ---
Report called to GENOVEVA Murcia at [facility]
== END 2020-08-08 08:03 ==
PROVIDERS: Emergency Medicine; Emergency Provider Emergency Medicine
DX: R45.851 Suicidal ideations (principal); E11.65 Type 2 diabetes mellitus with hyperglycemia; Z20.822 Contact with and (suspected) exposure to COVID-19
CPT/HCPCS: 36415; 80048; 80053; 80164; 80305; 80320; 80329; 81001; 82962; 84439; 84443; 85025; 87635; 96361; 96372; 96374; 96376; 99284; 99291; 99292; C9803; G0480; J1200; J2060

== ENCOUNTER → 2020-12-12 15:20 | Outpatient (CLI) | payer OTHER, MEDICAID, SELFPAY ==
[2020-12-12 17:28] LABS: Hemoglobin A1C% w Est Avg Glu 11.7 % (4.0-6.0)
[2020-12-12 18:01] LABS: Creatinine Urine Random 77.3 mg/dL
[2020-12-12 18:07] LABS: Alanine Aminotransferase 18 IU/L (<50); Albumin 4.5 g/dL (3.5-5.0); Albumin Globulin Ratio 1.6 (1.0-2.8); Alkaline Phosphatase 103 U/L (38-126); Aspartate Aminotransferase 27 IU/L (17-59); BUN Creatinine Ratio 9.3 (6-22); Bilirubin Total 0.8 mg/dL (0.2-1.3); Blood Urea Nitrogen 7 mg/dL (9-20); Calcium 9.5 mg/dL (8.4-10.2); Carbon Dioxide 30 mmol/L (22-32); Chloride 95 mmol/L (98-107); Cholesterol 253 mg/dL (140-199); Estimated Glomerular Filt Rate > 60.0 mL/min (>60); Globulin 2.8 g/dL (1.7-4.1); Glucose 416 mg/dL (70-100); HDL Cholesterol 70 mg/dL (40-60); HEMOLYSIS < 15 (0-50); LDL Cholesterol Calculated 146 mg/dL (<100); Potassium 3.9 mmol/L (3.4-5.1); Sodium 134 mmol/L (137-145); Total Protein 7.3 g/dL (6.3-8.2); Triglycerides 183 mg/dL (35-150)
[2020-12-12 18:27] LABS: Microalbumin Urine Random < 0.6 mg/dL (0-1.6)
[2020-12-12 18:34] LABS: Thyroid Stimulating Hormone 1.14 uIU/mL (0.47-4.68)
== END ==
DX: E10.9 Type 1 diabetes mellitus without complications (principal)
CPT/HCPCS: 36415; 80053; 80061; 82043; 82570; 83036; 84443

== ENCOUNTER 2021-02-24 17:44 | Emergency (ER) | payer OTHER, MEDICAID, SELFPAY ==
[2021-02-24 17:55] VITALS: BP 111/75; PULSE 99; RESP 20; TEMP 36.6; O2SAT 100
--- NOTE | 2021-02-24 18:08 | PC.NURSE ---
Offered PO fluids per nurse's request.
[2021-02-24] MEDS: INSULIN GLARGINE 100 UNIT/ML 3ML PEN 20 UNIT SUBCUT (18:15)
--- NOTE | 2021-02-24 19:24 | ED.GENADULT ---
HPI - General Adult General Chief complaint: Diabetic Problem Stated complaint: High Blood Glucose Time Seen by Provider: 02/24/21 18:05 Source: police Mode of arrival: other Limitations: no limitations History of Present Illness HPI narrative: 40-year-old gentleman with a history type 1 diabetes, bipolar depression, hypertension and anxiety brought in by police with concerns for driving under the influence and requesting medical clearance while obtaining search warrant for alcohol levels with anticipation of being booked into [facility] this evening. Patient states that he does take his insulin when he gets around to it. Initially said that he takes 18-25 units of Lantus only at night. When asked again he states that he does use between 3 and 4 units of Humalog prior to meals. When asked how he would treat a blood sugar of 450 he states that he would give himself 13-14 units of Humalog. His diabetic regimen sounds a retic at best. He appears fatigued in slightly impaired but no acute distress, no Kussmaul breathing moist mucous membranes and no evidence of overt trauma. He denies chest pain, palpitation, fevers, abdominal pain. Related Data Home Medications Medication Instructions Recorded Confirmed lamotrigine 150 mg tablet 150 mg PO BEDTIME 08/06/20 08/06/20 insulin glargine 100 unit/mL (3 25 unit SUBCUT DAILY 02/24/21 02/24/21 mL) subcutaneous pen (Lantus Solostar U-100 Insulin) Allergies Allergy/AdvReac Type Severity Reaction Status Date / Time No Known Drug Allergies Allergy Verified 07/22/20 12:49 Review of Systems Review of Systems Narrative: Remainder of complete review of systems is otherwise unremarkable except for that included in the HPI. Patient History Medical History Alcoholism Bipolar affective disorder, current episode mild Diabetes Post traumatic stress disorder (PTSD) Social History Smoking Status: Current every day smoker Smoking Status: Current every day smoker alcohol intake frequency: 3 or more drinks per day Alcohol type: beer, wine, hard liquor and other Substance Use Type: does not use Exam Narrative Exam Narrative: General: Appears mildly intoxicated, history is inconsistent he is able to speak in complete sentences HEENT: Moist mucous membranes, normal sclera with reactive pupils, no rotatory nystagmus Neck: supple Respiratory: Lungs are clear to auscultation, no wheezing no rales no rhonchi. Full and symmetrical air movement Cardiac: Regular rate and rhythm no murmurs no bruits Abdomen: Soft, nontender, good bowel tones, no flank pain Skin: Pale but Warm and dry, no rashes Neurologic: Overall slightly slowed but Grossly neurologically intact with no obvious asymmetries or abnormalities Extremities: No trauma, well perfused Psych: Recalcitrant, flat affect, poor eye contact poor overall insight, no evidence of auditory or visual hallucinations Initial Vital Signs Initial Vital Signs: Vital Signs Temperature 97.9 F 02/24/21 17:55 Pulse Rate 99 H 02/24/21 17:55 Respiratory Rate 20 02/24/21 17:55 Blood Pressure 111/75 02/24/21 17:55 Pulse Oximetry 100 02/24/21 17:55 Course Orders Ordered: Discontinued Medications Insulin Glargine (Insulin Glargine 100 Unit/Ml 3ml Pen) 20 unit SUBCUT NOW ONE Stop: 02/24/21 18:06 Last Admin: 02/24/21 18:15 Dose: 20 unit Documented by: ADARSH Cosigned by: MADY Vital Signs Vital signs: Vital Signs - 8 hr 02/24/21 20:34 Temperature 97.2 F L Pulse Rate 90 Respiratory Rate 14 Blood Pressure 106/74 Pulse Oximetry 98 Medical Decision Making Lab Data Lab results narrative: Patient has initially declined all blood draws. Police officers are waiting for warrant yes Labs: Point of Care Testing Glucose POC 394 Point of care testing: Point of Care Testing Glucose POC 394 MDM Narrative Medical decision making narrative: 40-year-old type 1 diabetic brought in with concerns for DUI by police officers for legal draw. Patient declines any medical blood work. Legal draw was obtained and he continues to decline any medical blood work. Initial point of care blood sugar was 450 he was given 25 units of subcu Lantus and 2 hours later his blood sugar is in the 350 range. There is no evidence of DKA. He is medically cleared for [facility] Discharge Plan Departure Patient Disposition: Home Clinical Impression: Alcoholism Diabetes Qualifiers: Diabetes mellitus type: type 1 Bipolar disorder Qualifiers: Active/Remission status: remission status unspecified Qualified Code(s): F31.9 - Bipolar disorder, unspecified Activity Restrictions/Additional Instructions: Initial blood sugar was 450, 25 units of Lantus was given in the emergency department and 2 hours later blood sugar is down to 394. There is no evidence of DKA on physical exam at this time. He is medically cleared for [facility] Prescriptions: No Action lamotrigine 150 mg tablet 150 mg PO BEDTIME RF: 0 Lantus Solostar U-100 Insulin 100 unit/mL (3 mL) insulin pen 25 unit SUBCUT DAILY RF: 0
[2021-02-24 20:34] VITALS: BP 106/74; PULSE 90; RESP 14; TEMP 36.2; O2SAT 98
== END 2021-02-24 20:40 | disposition home or self-care (01) ==
PROVIDERS: Emergency Provider Emergency Medicine
DX: E10.65 Type 1 diabetes mellitus with hyperglycemia (principal); F31.9 Bipolar disorder, unspecified; F10.20 Alcohol dependence, uncomplicated
CPT/HCPCS: 82962; 96372; 99281; 99283

== ENCOUNTER 2021-03-09 23:29 | Emergency (ER) | payer OTHER, MEDICAID, SELFPAY ==
[2021-03-09 23:34] VITALS: BP 158/97; PULSE 72; RESP 16; TEMP 36.6; O2SAT 100; BMI 21.2
--- NOTE | 2021-03-10 00:59 | ED_ITS ---
HPI - General Adult General Chief complaint: Diabetic Problem Stated complaint: diabetic, out of insulin Time Seen by Provider: 03/10/21 00:55 Source: patient Mode of arrival: Ambulatory Limitations: no limitations History of Present Illness HPI narrative: Patient he is here only for insulin medication. He states he is locked out of the home where his insulin is until the morning. He needs his nighttime Lantus and regular insulin. His dosing is variable from day-to-day for each of those medications. He agrees at this time for Lantus at 10 units/5 units of regular insulin. Denies any recent illness. Otherwise no other complaints. Review of patient's past glucose levels does range between 200 and 400 this past year. He does not have a family doctor. We will give him referral. His last dose of insulin was at 5:00 p.m. tonight. Related Data Home Medications Medication Instructions Recorded Confirmed lamotrigine 150 mg tablet 150 mg PO BEDTIME 08/06/20 08/06/20 insulin glargine 100 unit/mL (3 25 unit SUBCUT DAILY 02/24/21 02/24/21 mL) subcutaneous pen (Lantus Solostar U-100 Insulin) Allergies Allergy/AdvReac Type Severity Reaction Status Date / Time No Known Drug Allergies Allergy Verified 07/22/20 12:49 Review of Systems Review of Systems Narrative: GENERAL: Denies chills, fatigue, malaise, fever, sweats. HEENT: Denies sinus pain, ear pain, sore throat RESPIRATORY: Denies dyspnea, cough CARDIOVASCULAR: Denies chest pain, palpitations GASTROINTESTINAL: Denies nausea, vomiting, abdominal pain : Denies dysuria, frequency, hematuria, negative for polyuria polydipsia MUSCULOSKELETAL: denies muscle or bony pain SKIN: Denies rash, skin lesions NEUROLOGIC: Denies weakness, numbness ROS Unobtainable: All systems reviewed & are unremarkable except as noted in HPI and below Patient History Medical History Alcoholism Bipolar affective disorder, current episode mild Diabetes Post traumatic stress disorder (PTSD) Social History Smoking Status: Current every day smoker Smoking Status: Current every day smoker alcohol intake frequency: 3 or more drinks per day Alcohol type: beer, wine, hard liquor and other Substance Use Type: does not use Exam Narrative Exam Narrative: GENERAL: in no distress, not toxic not dyspneic HEAD: Normocephalic. EYES: Pupils equal round No scleral icterus. No injection no discharge ENT: Mucous membranes moist. NECK: Trachea midline. CARDIOVASCULAR: Regular rate and rhythm without murmurs RESPIRATORY: Clear to auscultation. Breath sounds equal bilaterally. No wheezes, rales, or rhonchi. GASTROINTESTINAL: Abdomen soft, non-tender EXTREMITIES: No gross deformities. BACK: No flank tenderness. NEURO: AOx4. SKIN: Warm and dry PSYCH: Not anxious, is cooperative Initial Vital Signs Initial Vital Signs: Vital Signs Temperature 97.8 F 03/09/21 23:34 Pulse Rate 72 03/09/21 23:34 Respiratory Rate 16 03/09/21 23:34 Blood Pressure 158/97 H 03/09/21 23:34 Pulse Oximetry 100 03/09/21 23:34 Course Course Course Narrative: No new issues during course of stay. Orders Ordered: Discontinued Medications Insulin Glargine (Insulin Glargine 100 Unit/Ml 3ml Pen) 10 unit SUBCUT BEDTIME YAMILKA Insulin Glargine (Insulin Glargine 100 Unit/Ml 3ml Pen) 10 unit SUBCUT NOW ONE Stop: 03/10/21 01:19 Last Admin: 03/10/21 01:20 Dose: 10 unit Documented by: SOHAN Cosigned by: ROBERT Insulin Human Regular (Insulin Regular 100 Unit/Ml 3 Ml Vial) 5 unit SUBCUT NOW ONE Stop: 03/10/21 00:57 Last Admin: 03/10/21 01:13 Dose: 5 unit Documented by: SOHAN Cosigned by: ROBERT Reevaluation(s) Reevaluation #1: Reviewed blood glucose after medication. It has improved. Patient agrees with treatment plan and retrieve his medications in the morning and call Friday for new provider Time: 03:01 Vital Signs Vital signs: Vital Signs - 8 hr 03/09/21 23:34 Temperature 97.8 F Pulse Rate 72 Respiratory Rate 16 Blood Pressure 158/97 H Pulse Oximetry 100 Medical Decision Making Differential Diagnosis Differential Diagnosis: Hyperglycemia Lab Data Labs: Point of Care Testing Glucose POC 348 Point of care testing: Point of Care Testing Glucose POC 348 MDM Narrative Medical decision making narrative: No other laboratories studies indicated this time. Patient has no other complaints other than not having access to his home medications until tomorrow morning. Return precautions reviewed with him. Patient is at baseline with his glucose levels. Discharge Plan Departure Patient Disposition: Home Clinical Impression: Acute hyperglycemia Instructions: DI for Hyperglycemia -- Adult Activity Restrictions/Additional Instructions: Be sure to retrieve your medications in the morning. Continue home medications. Call provided referral line to obtain family doctor on Friday. Return if worse if any questions or concerns Prescriptions: No Action lamotrigine 150 mg tablet 150 mg PO BEDTIME RF: 0 Lantus Solostar U-100 Insulin 100 unit/mL (3 mL) insulin pen 25 unit SUBCUT DAILY RF: 0 Referrals: [facility] [Outside]
[2021-03-10] MEDS: INSULIN REGULAR 100 UNIT/ML 3 ML VIAL SUBCUT (01:13)
[2021-03-10] MEDS: INSULIN GLARGINE 100 UNIT/ML 3ML PEN 10 UNIT SUBCUT (01:20)
[2021-03-10 03:54] VITALS: BP 141/87; PULSE 84; RESP 18; O2SAT 97
== END 2021-03-10 03:55 | disposition home or self-care (01) ==
PROVIDERS: Emergency Provider Emergency Medicine
DX: E11.65 Type 2 diabetes mellitus with hyperglycemia (principal)
CPT/HCPCS: 82962; 96372; 99281; 99283

== ENCOUNTER → 2021-03-17 17:14 | Outpatient (CLI) | payer OTHER, MEDICAID, SELFPAY ==
[2021-03-17 17:46] LABS: COVID19 -Nasal RAPID Negative (Negative)
== END ==
PROVIDERS: Referring Provider Physician Assistant; Visit Provider Physician Assistant
DX: Z20.822 Contact with and (suspected) exposure to COVID-19 (principal)
CPT/HCPCS: 87635

== ENCOUNTER → 2021-04-16 15:03 | Outpatient (CLI) | payer OTHER, MEDICAID, SELFPAY ==
[2021-04-16 16:47] LABS: Hemoglobin A1C% w Est Avg Glu 11.6 % (4.0-6.0)
== END ==
PROVIDERS: Referring Provider Nurse Practitioner; Visit Provider Nurse Practitioner
DX: E10.65 Type 1 diabetes mellitus with hyperglycemia (principal)
CPT/HCPCS: 36415; 83036

== ENCOUNTER → 2021-09-12 15:57 | Outpatient (CLI) | payer OTHER, MEDICAID, SELFPAY ==
[2021-09-12 16:21] LABS: Add Manual Diff / Slide Review NO; Basophils Absolute Auto 0 /uL (0-100); Basophils Percent Auto 0.6 % (0-2); Eosinophils Absolute Auto 200 /uL (0-450); Eosinophils Percent Auto 2.9 % (2-4); Hematocrit 47.8 % (41-53); Hemoglobin 16.2 g/dL (13.5-17.5); Lymphocytes Absolute Auto 2000 /uL (1100-4500); Lymphocytes Percent Auto 27.7 % (25-40); Mean Corpuscular HGB Conc 33.9 % (30-36); Mean Corpuscular Hemoglobin 27.3 PG (26-34); Mean Corpuscular Volume 80.7 fL (80-100); Monocytes Absolute Auto 500 /uL (0-900); Monocytes Percent Auto 6.5 % (3-14); Neutrophils Absolute Auto 4500 /uL (1500-7000); Neutrophils Percent Auto 62.3 % (50-75); Platelet Count 232 X10^3/uL (150-400); Red Blood Cell Count 5.92 X10^6/uL (4.5-5.9); Red Cell Distribution Width 13.6 % (11.6-14.8); White Blood Cell Count 7.2 X10^3/uL (4.5-11.0)
[2021-09-12 16:51] LABS: Monotest Negative (Negative)
[2021-09-12 17:06] LABS: Alanine Aminotransferase 17 IU/L (<50); Albumin 4.4 g/dL (3.5-5.0); Albumin Globulin Ratio 1.6 (1.0-2.8); Alkaline Phosphatase 68 U/L (38-126); Amylase 47 U/L (30-110); Aspartate Aminotransferase 20 IU/L (17-59); BUN Creatinine Ratio 17.3 (6-22); Bilirubin Total 0.6 mg/dL (0.2-1.3); Bilirubin Unconjugated 0.6 mg/dL (0.0-1.1); Blood Urea Nitrogen 17 mg/dL (9-20); Calcium 9.6 mg/dL (8.4-10.2); Carbon Dioxide 30 mmol/L (22-32); Chloride 100 mmol/L (98-107); Estimated Glomerular Filt Rate > 60 mL/min (>60); Globulin 2.8 g/dL (1.7-4.1); Glucose 376 mg/dL (70-100); HEMOLYSIS < 15 (0-50); Lipase 75 U/L (23-300); Potassium 4.1 mmol/L (3.4-5.1); Sodium 138 mmol/L (137-145); Total Protein 7.2 g/dL (6.3-8.2)
[2021-09-12 17:54] LABS: TSH w/ Reflex to FT4 0.95 uIU/mL (0.47-4.68)
== END ==
PROVIDERS: Referring Provider Physician Assistant; Visit Provider Physician Assistant
DX: R53.83 Other fatigue (principal); R63.4 Abnormal weight loss
CPT/HCPCS: 36415; 80053; 80076; 82150; 83690; 84443; 85025; 86318

== ENCOUNTER → 2022-02-25 12:54 | Outpatient (CLI) | payer OTHER, MEDICAID, SELFPAY ==
--- NOTE | 2022-02-25 | DI.ECHO.S_ITS ---
[facility] +---------+ : : [address] [address] : : : : [id number] : : : : Phone: [phone] Echocardiogram Report + + :Name: ALEXIS ACEVES Study Date: 02/25/2022 Height: 73 in : :[facility] ReadingLocation: Weight: 163 lb : : Gender: Male BSA: 2.0 m2 : :: 1980 Age: 41 yrs BP: 110/80 mmHg: :Reason For Study: Chest pain : :Ordering Physician: NIKOLE, : :REGINE Performed By: Will Gee : :Referring: REGINE DEWITT : + + Interpretation Summary 1) Normal left ventricular thickness, size, wall motion, and systolic function (EF 60-65%). 2) Normal right ventricular size and function. 3) The aortic valve is bicuspid. 4) No significant valvular stenosis and regurgitation. 5) The ascending aorta is mildly enlarged at 4.0cm. 6) No prior Echo available for comparison. Procedure: A two-dimensional transthoracic echocardiogram with color flow and Doppler was performed. The study quality was technically adequate. There is no prior echocardiogram noted for this patient. The patient was in normal sinus rhythm during the exam. Left Ventricle: The left ventricle is normal in size and wall thickness. Left ventricular systolic function is normal. The ejection fraction is estimated to be 60-65%. There are no focal wall motion abnormalities. Diastolic parameters suggest probable normal left ventricular diastolic function and normal filling pressures. Right Ventricle: The right ventricle is normal in size and function. Atria: Both atria are normal in size. The interatrial septum grossly appears intact with no obvious evidence for an atrial septal defect. Mitral Valve: The mitral valve is normal in structure and function. There is no mitral regurgitation noted. Aortic Valve: The aortic valve is bicuspid. There is no aortic valve stenosis. No aortic regurgitation is present. Tricuspid Valve: The tricuspid valve is normal in structure and function. No tricuspid regurgitation. Pulmonary artery pressures cannot be estimated because of the lack of a measurable TR jet velocity. Pulmonic Valve: The pulmonic valve is normal in structure and function. There is no pulmonic valvular regurgitation. Great Vessels: The aortic root is normal size. The ascending aorta is mildly enlarged. The IVC is of normal diameter and collapses greater than 50% with a sniff. This suggests a low right atrial pressure of 3 mm Hg. Pericardium/ Pleura There is no pericardial effusion. There is no pleural effusion. MMode/2D Measurements & Calculations LVIDd: 4.1 cm LVOT diam: 2.3 cm LVIDs: 2.7 cm Ao root diam: 3.5 cm FS: 34.1 % asc Aorta Diam: 4.0 cm IVSd: 0.90 cm LVPWd: 0.90 cm LV campos. diameter/BSA (cm/m^2): 2.1 LV sys. diameter/BSA (cm/m^2): 1.4 LA dimension: 2.2 cm RA long axis: 3.9 cm LA A2 area: 11.9 cm2 LA A4 area: 11.6 cm2 LA length (vol): 4.4 cm LA vol: 26.6 ml LA vol index: 13.5 ml/m2 TAPSE_phl: 2.1 cm Doppler Measurements & Calculations Ao V2 max: 146.0 cm/sec LVOT Max Remy: 99.2 cm/sec Ao V2 mean: 106.0 cm/sec LV V1 max P.9 mmHg Ao max P.0 mmHg LV V1 VTI: 19.2 cm Ao mean P.0 mmHg BUNNY(I,D): 3.1 cm2 Ao V2 VTI: 25.7 cm BUNNY(V,D): 2.8 cm2 sev ratio: 0.75 BUNNY indexed to BSA (cm^2/m^2): 1.6 MV E max remy: 92.5 cm/sec SV(LVOT): 79.8 ml MV A max remy: 73.3 cm/sec MV E/A: 1.3 Med Peak E' Remy: 10.0 cm/sec E/E' med: 9.3 Lat Peak E' Remy: 13.2 cm/sec E/E' lat: 7.0 E/e' average: 8.1 MV dec time: 0.17 sec AV VR_phl: 0.68 MV P1/2t-pr_phl: 49.0 msec BUNNY(VTI)/BSA_phl: 1.6 Reading Physician:01:35 PM
== END ==
PROVIDERS: Referring Provider Internal Medicine Cardiovascular Disease; Visit Provider Internal Medicine Cardiovascular Disease
DX: R07.89 Other chest pain (principal); I77.89 Other specified disorders of arteries and arterioles
CPT/HCPCS: 93306

== ENCOUNTER → 2022-03-01 16:06 | Outpatient (CLI) | payer OTHER, MEDICAID, SELFPAY ==
[2022-03-01 17:27] LABS: Hemoglobin A1C% w Est Avg Glu 11.5 % (4.0-6.0)
[2022-03-01 17:42] LABS: Alanine Aminotransferase 16 IU/L (<50); Albumin 4.5 g/dL (3.5-5.0); Albumin Globulin Ratio 1.7 (1.0-2.8); Alkaline Phosphatase 83 U/L (38-126); Aspartate Aminotransferase 18 IU/L (17-59); Bilirubin Total 0.8 mg/dL (0.2-1.3); Blood Urea Nitrogen 15 mg/dL (9-20); Calcium 9.4 mg/dL (8.4-10.2); Carbon Dioxide 24 mmol/L (22-32); Chloride 97 mmol/L (98-107); Cholesterol 253 mg/dL (140-199); Estimated Glomerular Filt Rate > 60 mL/min (>60); Globulin 2.7 g/dL (1.7-4.1); Glucose 470 mg/dL (70-100); HDL Cholesterol 32 mg/dL (40-60); HEMOLYSIS < 15 (0-50); LDL Cholesterol Calculated 169 mg/dL (<100); Potassium 4.5 mmol/L (3.4-5.1); Sodium 132 mmol/L (137-145); Total Protein 7.2 g/dL (6.3-8.2); Triglycerides 261 mg/dL (35-150)
[2022-03-01 17:44] LABS: Creatinine Urine Random 113.7 mg/dL
[2022-03-01 17:46] LABS: Microalbumi Creatinin Ratio Ur 5.2 ug/mg CR (<30); Microalbumin Urine Random 0.6 mg/dL (0-1.6)
[2022-03-01 18:11] LABS: Thyroid Stimulating Hormone 1.33 uIU/mL (0.47-4.68)
== END ==
PROVIDERS: Referring Provider Internal Medicine Cardiovascular Disease; Visit Provider Internal Medicine Cardiovascular Disease
DX: E10.9 Type 1 diabetes mellitus without complications (principal)
CPT/HCPCS: 36415; 80053; 80061; 82043; 82570; 83036; 84443

== ENCOUNTER → 2022-05-31 14:01 | Outpatient (CLI) | payer OTHER, MEDICAID, SELFPAY ==
[2022-05-31 15:36] LABS: COVID19 -Nasal RAPID Negative (Negative)
--- NOTE | 2022-05-31 18:17 | DI.NM.S_ITS ---
DATE OF SERVICE: 05/31/2022 PROCEDURE: Exercise stress test. INDICATION: 41-year-old male with history of smoking, type 1 diabetes mellitus with symptoms of dyspnea and chest discomfort. CARDIAC STRESS: The patient underwent exercise stress test under the supervision of an attending staff. He walked on Aleksandr protocol for 5 minutes and 59 seconds, achieved maximum heart rate of 147, which was 83 percent of target heart rate. Achieved 7 METs of workload. Functional aerobic impairment positive 36 percent. Test was discontinued because of leg fatigue and shortness of breath. Resting blood pressure 105/70 mmHg. Peak blood pressure 140/70 mmHg. Baseline rhythm was sinus with sinus tachycardia, rate about 108 beats per minute. During stress, there were no convincing ischemic changes seen. Occasional PVCs without any ventricular tachycardia. The patient had mild chest tightness during peak exercise, which got resolved in recovery. CONCLUSION: Slightly submaximal exercise stress test is negative for inducible ischemia. The patient achieved 83 percent of target heart rate. However, resting rhythm showed mild sinus tachycardia. Test has to be discontinued because of leg fatigue and shortness of breath. Normal blood pressure response. No concerning arrhythmia. At peak exercise, has chest tightness, which got resolved in recovery. However, no ischemic electrocardiographic changes. Diminished exercise tolerance. Considering risk factors and chest tightness and slightly submaximal exercise stress test, consider repeating exercise stress test with imaging modality to improve sensitivity and specificity to rule out coronary artery disease. Mao Ybarra - Otf/ramy doc#: [id number]/job#: [id number] dd: 05/31/2022 16:49:00 dt: 05/31/2022 18:00:00 DICTATING MD/COPIES TO: Jamie Merceeds MD COPIES MNE: SCARLET;
== END ==
PROVIDERS: Referring Provider Internal Medicine Cardiovascular Disease; Visit Provider Internal Medicine Cardiovascular Disease
DX: R07.89 Other chest pain (principal); R06.00 Dyspnea, unspecified; E10.9 Type 1 diabetes mellitus without complications; Z20.822 Contact with and (suspected) exposure to COVID-19; Z87.891 Personal history of nicotine dependence
CPT/HCPCS: 87635; 93017

== ENCOUNTER → 2022-08-07 14:40 | Outpatient (CLI) | payer OTHER, MEDICAID, SELFPAY ==
[2022-08-07 15:36] LABS: Hemoglobin A1C% w Est Avg Glu 12.3 % (4.0-6.0)
[2022-08-07 15:37] LABS: Alanine Aminotransferase 20 IU/L (<50); Albumin 4.1 g/dL (3.5-5.0); Albumin Globulin Ratio 1.5 (1.0-2.8); Alkaline Phosphatase 82 U/L (38-126); Aspartate Aminotransferase 21 IU/L (17-59); BUN Creatinine Ratio 19.5 (6-22); Bilirubin Total 0.7 mg/dL (0.2-1.3); Blood Urea Nitrogen 16 mg/dL (9-20); Calcium 8.8 mg/dL (8.4-10.2); Carbon Dioxide 30 mmol/L (22-32); Chloride 97 mmol/L (98-107); Cholesterol 231 mg/dL (140-199); Estimated Glomerular Filt Rate > 60 mL/min (>60); Globulin 2.7 g/dL (1.7-4.1); Glucose 385 mg/dL (70-100); HDL Cholesterol 37 mg/dL (40-60); HEMOLYSIS < 15 (0-50); LDL Cholesterol Calculated 133 mg/dL (<100); Potassium 3.5 mmol/L (3.4-5.1); Sodium 134 mmol/L (137-145); Total Protein 6.8 g/dL (6.3-8.2); Triglycerides 305 mg/dL (35-150)
[2022-08-07 17:27] LABS: Creatinine Urine Random 209.2 mg/dL
[2022-08-07 17:32] LABS: Microalbumi Creatinin Ratio Ur 5.2 ug/mg CR (<30); Microalbumin Urine Random 1.1 mg/dL (0-1.6)
== END ==
PROVIDERS: Referring Provider Internal Medicine Endocrinology, Diabetes & Metabolism; Visit Provider Internal Medicine Endocrinology, Diabetes & Metabolism
DX: E10.65 Type 1 diabetes mellitus with hyperglycemia (principal)
CPT/HCPCS: 36415; 80053; 80061; 82043; 82570; 83036

== ENCOUNTER → 2022-12-27 14:44 | Outpatient (CLI) | payer MEDICARE, MEDICAID, SELFPAY ==
--- NOTE | 2023-01-03 14:30 | PM.PFT.1 ---
Pulmonary Function Test Referral & Results Date Patient Seen: 12/27/22 Results: The spirometry demonstrates an FVC of 4.10 L which is 69% of predicted. The FEV1 was measured at 3.18 L which is 68% of predicted. The FEV1/FVC ratio was 78 which is 98% of predicted. Following the administration of bronchodilator there was a 20% improvement in FEV1 and a 93% improvement in FEF 25-75%. Lung volumes show an SVC of 4.35 L which is 77% of predicted. The diffusing capacity was measured at 28.42 which is 75% of predicted. No hemoglobin value was provided, so no correction for potential anemia could be made, if appropriate. The maximum voluntary ventilation was reduced Interpretation: This study demonstrates moderate obstructive lung disease based on reduction FEV1 although FEV1/FVC ratio is relatively preserved. There is evidence of significant benefit following bronchodilator as above There is also evidence of xhuq-ea-[id number] restrictive lung disease based on reduction in SVC There is also mild reduction diffusing capacity suggesting disease at the capillary alveolar level Altogether this is suggestive of epty-yc-zoioheko COPD Clinical correlation suggested
== END ==
PROVIDERS: PCP Nurse Practitioner Family; Referring Provider Nurse Practitioner Family; Visit Provider Nurse Practitioner Family
DX: J45.998 Other asthma (principal); F17.210 Nicotine dependence, cigarettes, uncomplicated
CPT/HCPCS: 94060; 94726; 94729

== ENCOUNTER → 2023-04-18 14:36 | Outpatient (CLI) | payer MEDICARE, MEDICAID, SELFPAY ==
[2023-04-18 15:44] LABS: Cholesterol 253 mg/dL (140-199); HDL Cholesterol 72 mg/dL (40-60); LDL Cholesterol Calculated 132 mg/dL (<100); Triglycerides 246 mg/dL (35-150)
== END ==
PROVIDERS: PCP Nurse Practitioner Family; Referring Provider Internal Medicine Endocrinology, Diabetes & Metabolism; Visit Provider Internal Medicine Endocrinology, Diabetes & Metabolism
DX: E10.9 Type 1 diabetes mellitus without complications (principal)
CPT/HCPCS: 36415; 80061

== ENCOUNTER → 2023-06-23 14:52 | Outpatient (CLI) | payer MEDICARE, MEDICAID, SELFPAY ==
[2023-06-23 17:18] LABS: Add Manual Diff / Slide Review NO; Basophils Absolute Auto 100 /uL (0-100); Basophils Percent Auto 0.6 % (0-2); Eosinophils Absolute Auto 100 /uL (0-450); Eosinophils Percent Auto 1.4 % (2-4); Hematocrit 43.9 % (41-53); Hemoglobin 14.8 g/dL (13.5-17.5); Lymphocytes Absolute Auto 2200 /uL (1100-4500); Lymphocytes Percent Auto 24.9 % (25-40); Mean Corpuscular HGB Conc 33.8 % (30-36); Mean Corpuscular Hemoglobin 29.9 PG (26-34); Mean Corpuscular Volume 88.3 fL (80-100); Monocytes Absolute Auto 400 /uL (0-900); Monocytes Percent Auto 4.5 % (3-14); Neutrophils Absolute Auto 6200 /uL (1500-7000); Neutrophils Percent Auto 68.6 % (50-75); Platelet Count 256 X10^3/uL (150-400); Red Blood Cell Count 4.97 X10^6/uL (4.5-5.9); Red Cell Distribution Width 12.8 % (11.6-14.8)
[2023-06-23 17:31] LABS: Albumin 4.4 g/dL (3.5-5.0); Albumin Globulin Ratio 1.6 (1.0-2.8); Alkaline Phosphatase 83 U/L (38-126); Aspartate Aminotransferase 26 IU/L (17-59); BUN Creatinine Ratio 16.3 (6-22); Blood Urea Nitrogen 13 mg/dL (9-20); Calcium 9.7 mg/dL (8.4-10.2); Carbon Dioxide 23 mmol/L (22-32); Chloride 94 mmol/L (98-107); Estimated Glomerular Filt Rate > 60 mL/min (>60); Globulin 2.8 g/dL (1.7-4.1); Glucose 452 mg/dL (70-100); HEMOLYSIS < 15 (0-50); Potassium 4.1 mmol/L (3.4-5.1); Sodium 132 mmol/L (137-145); Total Protein 7.2 g/dL (6.3-8.2)
[2023-06-23 17:36] LABS: Alanine Aminotransferase 21 IU/L (<50)
[2023-06-23 18:01] LABS: TSH w/ Reflex to FT4 0.83 uIU/mL (0.47-4.68)
[2023-06-23 18:19] LABS: Hep C Virus Ab w/Reflex Quant NEGATIVE s/c (NEGATIVE)
[2023-06-23 19:48] LABS: Creatinine Urine Random 46.1 mg/dL
[2023-06-23 20:00] LABS: Microalbumin Urine Random < 0.6 mg/dL (0-1.6)
[2023-06-25 03:11] LABS: Cholesterol HDL Ratio 4.3 ratio (0.0-5.0); Cholesterol,Total 323 mg/dL (100-199); HDL Cholesterol 75 mg/dL (>39); LDL Cholesterol Cal 188 mg/dL (0-99); Triglycerides 309 mg/dL (0-149); VLDL Cholesterol Cal 60 mg/dL (5-40)
== END ==
PROVIDERS: PCP Nurse Practitioner Family; Referring Provider Nurse Practitioner Family; Visit Provider Nurse Practitioner Family
DX: E11.9 Type 2 diabetes mellitus without complications (principal); Z11.59 Encounter for screening for other viral diseases; E78.5 Hyperlipidemia, unspecified; R00.0 Tachycardia, unspecified; F31.9 Bipolar disorder, unspecified
CPT/HCPCS: 36415; 80053; 80061; 82043; 82570; 84443; 85025; 86803

== ENCOUNTER → 2023-07-22 15:38 | Outpatient (CLI) | payer MEDICARE, MEDICAID, SELFPAY ==
--- NOTE | 2023-07-22 | DI.RAD.S_ITS ---
PROCEDURE: XR LUMBAR SPINE 2-3V INDICATIONS: CHRONI BACK PAIN TECHNIQUE: 3 views of the lumbar spine were acquired. COMPARISON: None. FINDINGS: Bones: 5 chw-feu-segfbzc vertebrae are present. There is multilevel trace retrolisthesis particularly at L4-5 and L5-S1. No vertebral body compression fractures. No suspicious bony lesions. Mild foraminal narrowing at L5-S1. Soft tissues: Overlying bowel gas pattern is normal. No suspicious soft tissue calcifications. IMPRESSION: Retrolisthesis of L4 on L5 with foraminal and disc space narrowing. Dictated by: Agatha Malik M.D. on 07/22/2023 at 18:20 Approved by: Agatha Malik M.D. on 07/22/2023 at 18:21
== END ==
PROVIDERS: PCP Nurse Practitioner Family; Referring Provider Nurse Practitioner Family; Visit Provider Nurse Practitioner Family
DX: M43.16 Spondylolisthesis, lumbar region (principal); M43.17 Spondylolisthesis, lumbosacral region; M48.07 Spinal stenosis, lumbosacral region; M54.50 Low back pain, unspecified
CPT/HCPCS: 72100

== ENCOUNTER → 2023-07-25 14:14 | Outpatient (CLI) | payer MEDICARE, MEDICAID, SELFPAY ==
--- NOTE | 2023-07-25 14:15 | DI.CT.S_ITS ---
PROCEDURE: CT CHEST WO CON INDICATIONS: Dyspnea, unspecified TECHNIQUE: Noncontrast 1 mm thick sections acquired from the pulmonary apices to the posterior costophrenic angles. 7 mm thick axial MIP, and 5 mm coronal and sagittal reformats were then acquired. For radiation dose reduction, the following was used: automated exposure control, adjustment of mA and/or kV according to patient size. COMPARISON: None. FINDINGS: Image quality: Diagnostic. Lower Neck: No enlarged lymph nodes. Thyroid: No thyroid nodules which require sonographic follow up, per consensus guidelines. Axillae: No enlarged lymph nodes. Chest Wall: Unremarkable. Bones: Unremarkable. Lungs and Pleura: No pneumothorax or pleural effusions. No consolidation or suspicious nodules. A few juxtapleural nodules 4 mm or less noted; benign. Heart: Heart size is normal. No pericardial effusion. Thoracic Vessels: The aorta and pulmonary arteries demonstrate normal size. Mediastinum and Penny: No enlarged lymph nodes. Esophagus: No wall thickening. No hiatal hernia. Upper Abdomen: Visualized upper abdomen solid organs and bowel loops appear normal. IMPRESSION: 1. No CT findings to explain patient's symptomology Dictated by: Jacques Quiroga M.D. on 07/25/2023 at 16:47 Approved by: Jacques Quiroga M.D. on 07/25/2023 at 16:52
== END ==
PROVIDERS: PCP Nurse Practitioner Family; Referring Provider Nurse Practitioner Family; Visit Provider Nurse Practitioner Family
DX: R06.00 Dyspnea, unspecified (principal); R91.8 Other nonspecific abnormal finding of lung field
CPT/HCPCS: 71250

== ENCOUNTER 2023-09-20 11:59 | Inpatient (IN) | payer MEDICARE, MEDICAID, SELFPAY ==
[2023-09-20] VITALS (29 sets, daily range): BP systolic 104–160; BP diastolic 66–95; PULSE 79–132; RESP 12–26; TEMP 36.3–36.8; O2SAT 95–100; BMI 19.1
--- NOTE | 2023-09-20 12:24 | ED.NAVMDI ---
HPI - Nausea/Vomiting/Diarrhea General Chief complaint: Nausea/Vomiting/Diarrhea Stated complaint: SOB vomitting dizzy lightheaded Time Seen by Provider: 09/20/23 12:16 Source: patient Mode of arrival: Ambulatory History of Present Illness HPI Narrative: Patient is a 43-year-old male. He has an insulin-dependent diabetic. For the past 3 days has had multiple episodes of vomiting. Is also reporting lightheadedness, chest discomfort, abdominal discomfort. No diarrhea. No urinary symptoms. He states that his Dexcom glucose meter 3 days ago but he has not set up a new 1. He has been randomly giving himself some insulin over the past couple days but not related to checking his blood sugar. No recent travel. No recent antibiotics. He states that generally he just does not feel very well. He is tried [id number] medications try to help with his nausea. Related Data Home Medications Medication Instructions Recorded Confirmed lamotrigine 150 mg tablet 150 mg PO BEDTIME 08/06/20 09/20/21 insulin glargine 100 unit/mL (3 25 unit SUBCUT DAILY 02/24/21 09/20/21 mL) subcutaneous pen (Lantus Solostar U-100 Insulin) insulin lispro 100 unit/mL 1 sliding scale dose SUBCUT 09/12/21 09/20/21 subcutaneous cartridge (Humalog USEASDIRECTD U-100 Insulin) Previous Rx's Medication Instructions Recorded duloxetine 20 mg capsule,delayed 20 mg PO DAILY #14 caps 09/20/21 release Allergies Allergy/AdvReac Type Severity Reaction Status Date / Time No Known Drug Allergies Allergy Verified 04/28/21 14:32 Review of Systems Review of Systems ROS Unobtainable: All systems reviewed & are unremarkable except as noted in HPI and below Patient History Medical History Diabetes Alcoholism Post traumatic stress disorder (PTSD) Bipolar affective disorder, current episode mild Social History Smoking Status: Current every day smoker Smoking Status: Current every day smoker tobacco type: cigarettes alcohol intake frequency: 3 or more drinks per day Alcohol type: beer, wine, hard liquor and other Substance Use Type: does not use Exam Initial Vital Signs Initial Vital Signs: Vital Signs Temperature 97.3 F L 09/20/23 12:08 Pulse Rate 132 H 09/20/23 12:08 Respiratory Rate 18 09/20/23 12:08 Blood Pressure 128/82 09/20/23 12:08 Pulse Oximetry 98 09/20/23 12:08 Oxygen Delivery Method Room Air 09/20/23 12:08 Const General: cooperative and No ill appearing HENMT Head: normal to inspection and normocephalic Chest Chest: No crepitus and No tenderness Resp Effort & Inspection: normal respiratory effort Auscultation: clear to auscultation bilaterally Cardio Rate: tachycardic Rhythm: regular rhythm and abnormal rhythm GI Inspection: normal to inspection and non-distended Palpation: soft and No tender Skin General: no rashes or lesions noted Neuro General: patient alert, patient awake, patient oriented x3 and moves all extremities Cognition: normal cognition Speech: speech normal Extrem General: normal to inspection and capillary refill normal Course Orders Ordered: ED Orders 09/20/23 12:16 EKG-12 Lead Stat 09/20/23 12:25 Complete Blood Count AUTO DIFF Stat Comprehensive Metabolic Panel Stat Ethanol (ETOH) Stat Ketones (Beta-Hydroxybutyrate) Stat Lipase Stat Magnesium Stat Phosphorous Stat Troponin & CK Cardiac Panel Stat 09/20/23 12:36 Venous Blood Gas Stat INSULIN DRIP PREMIX (Myxredlin Drip Premix) 100 unit in 100 mls @ 9.866 mls/hr IV TITRATE YAMILKA; Protocol Last Admin: 09/20/23 13:04 Dose: 0.15 unit/kg/hr, 9.866 mls/hr Documented By: CHRISTINA Co-signed By: EDIN Sodium Chloride (Normal Saline 0.9%) 1,000 mls @ 200 mls/hr IV CONT YAMILKA Discontinued Medications Sodium Chloride (Normal Saline 0.9%) 1,000 mls @ 1,000 mls/hr IV BOLUS ONE Stop: 09/20/23 13:16 Last Admin: 09/20/23 12:43 Dose: 1,000 mls/hr Documented By: CHRISTINA Ondansetron HCl (Ondansetron 4 Mg/2 Ml Inj) 4 mg IV NOW ONE Stop: 09/20/23 12:44 Vital Signs Vital signs: Vital Signs - 8 hr 09/20/23 12:08 Temperature 97.3 F L Pulse Rate 132 H Respiratory Rate 18 Blood Pressure 128/82 Pulse Oximetry 98 Oxygen Delivery Method Room Air MDM - Nausea/Vomiting/Diarrhea Lab Data Attestation: I reviewed the patient's lab results. 09/20/23 12:25 09/20/23 12:25 Labs: Lab Results 09/20/23 09/20/23 09/20/23 Range/Units 12:25 12:25 12:36 WBC 11.8 H (4.5-11.0) X10^3/uL RBC 5.45 (4.5-5.9) X10^6/uL Hgb 16.5 (13.5-17.5) g/dL Hct 49.0 (41-53) % MCV 89.9 (80-100) fL MCH 30.2 (26-34) PG MCHC 33.6 (30-36) % RDW 13.1 (11.6-14.8) % Plt Count 293 (150-400) X10^3/uL Neut % (Auto) 75.0 (50-75) % Lymph % (Auto) 14.9 L (25-40) % [place] % (Auto) 9.0 (3-14) % Eos % (Auto) 0.3 L (2-4) % Baso % (Auto) 0.8 (0-2) % Neut # (Auto) 8800 H (7238-2062) /uL Lymph # (Auto) 1800 (6628-2204) /uL [place] # (Auto) 1100 H (0-900) /uL Eos # (Auto) 0 (0-450) /uL Baso # (Auto) 100 (0-100) /uL VBG pH 7.26 L (7.33-7.43) VBG pCO2 32.5 L (45-50) mmHg VBG pO2 48 H (35-45) mmHg VBG HCO3 15 L (24-28) mmol/L VBG Total CO2 16 L (24-29) mmol/L VBG O2 Saturation 78 H (70-75) % VBG Base Excess -12.0 L (0-4) mmol/L FiO2 21 Sodium 131 L (137-145) mmol/L Potassium 4.9 (3.4-5.1) mmol/L Chloride 95 L (98-107) mmol/L Carbon Dioxide 7 L* (22-32) mmol/L BUN 17 (9-20) mg/dL Creatinine 1.18 (0.66-1.25) mg/dL Estimated GFR > 60 (>60) mL/min BUN/Creatinine Ratio 14.4 (6-22) Glucose 488 H* (70-100) mg/dL Calcium 10.3 H (8.4-10.2) mg/dL Phosphorus 3.7 (2.5-4.5) mg/dL Magnesium 2.7 H (1.6-2.3) mg/dL Total Bilirubin 1.0 (0.2-1.3) mg/dL AST 20 (17-59) IU/L ALT 19 (<50) IU/L Alkaline Phosphatase 147 H (38-126) U/L Total Creatine Kinase 32 L (55-170) U/L Troponin I < 0.012 (0.01-0.034) ng/mL Total Protein 9.3 H (6.3-8.2) g/dL Albumin 5.5 H (3.5-5.0) g/dL Globulin 3.8 (1.7-4.1) g/dL Albumin/Globulin Ratio 1.4 (1.0-2.8) Lipase 88 (23-300) U/L Ethyl Alcohol < 10 Cancelled ( - 10) mg/dL Ketones 8.92 H (<0.27) mmol/L Point of Care Testing Glucose POC 403 ECG Data Attestation: I personally reviewed and interpreted this ECG as follows: Interpretation: Sinus tachycardia Ventricular rate of 114 Normal axis Normal QRS Normal QTC No ST T wave changes MDM Narrative Medical decision making narrative: No signs of alcohol withdrawal. Has been vomiting for the past several days. Is in DKA with a pH of 7.2. Has ketones. Potassium 4.9. Anion gap of 29. Patient was given fluids. Started on an insulin drip. Discussed the case with Dr. Bustillos hospitalist on-call who will admit for further evaluation and treatment. Discharge Plan Departure Patient Disposition: Admitted As Inpatient Clinical Impression: DKA (diabetic ketoacidosis), Vomiting Admit Date/Time: 09/20/23 13:08 Admit Provider: Alex Bustillos
[2023-09-20 12:31] LABS: Add Manual Diff / Slide Review NO; Basophils Absolute Auto 100 /uL (0-100); Basophils Percent Auto 0.8 % (0-2); Eosinophils Absolute Auto 0 /uL (0-450); Eosinophils Percent Auto 0.3 % (2-4); Hemoglobin 16.5 g/dL (13.5-17.5); Lymphocytes Absolute Auto 1800 /uL (1100-4500); Lymphocytes Percent Auto 14.9 % (25-40); Mean Corpuscular HGB Conc 33.6 % (30-36); Mean Corpuscular Hemoglobin 30.2 PG (26-34); Mean Corpuscular Volume 89.9 fL (80-100); Monocytes Absolute Auto 1100 /uL (0-900); Neutrophils Absolute Auto 8800 /uL (1500-7000); Platelet Count 293 X10^3/uL (150-400); Red Blood Cell Count 5.45 X10^6/uL (4.5-5.9); Red Cell Distribution Width 13.1 % (11.6-14.8); White Blood Cell Count 11.8 X10^3/uL (4.5-11.0)
[2023-09-20] MEDS: SODIUM CHLORIDE 0.9% 1,000 ML 1000 ML IV ×2 (12:43→14:30)
[2023-09-20 12:45] LABS: Alanine Aminotransferase 19 IU/L (<50); Albumin 5.5 g/dL (3.5-5.0); Albumin Globulin Ratio 1.4 (1.0-2.8); Alkaline Phosphatase 147 U/L (38-126); Aspartate Aminotransferase 20 IU/L (17-59); BUN Creatinine Ratio 14.4 (6-22); Blood Urea Nitrogen 17 mg/dL (9-20); Calcium 10.3 mg/dL (8.4-10.2); Chloride 95 mmol/L (98-107); Estimated Glomerular Filt Rate > 60 mL/min (>60); Ethanol (ETOH) < 10 mg/dL; Globulin 3.8 g/dL (1.7-4.1); HEMOLYSIS 19 (0-50); Lipase 88 U/L (23-300); Magnesium 2.7 mg/dL (1.6-2.3); Phosphorous 3.7 mg/dL (2.5-4.5); Potassium 4.9 mmol/L (3.4-5.1); Sodium 131 mmol/L (137-145); Total Protein 9.3 g/dL (6.3-8.2)
[2023-09-20 12:48] LABS: Carbon Dioxide 7 mmol/L (22-32); Glucose 488 mg/dL (70-100)
[2023-09-20 12:48] LABS: Fractionated Inspired Oxygen 21; HCO3 VBG 15 mmol/L (24-28); Oxygen Saturation VBG 78 % (70-75); PCO2 VBG 32.5 mmHg (45-50); PO2 VBG 48 mmHg (35-45); Total CO2 VBG 16 mmol/L (24-29); pH VBG 7.26 (7.33-7.43)
[2023-09-20 12:56] LABS: Creatine Kinase 32 U/L (55-170)
[2023-09-20 12:59] LABS: Ketones (Beta-Hydroxybutyrate) 8.92 mmol/L (<0.27)
[2023-09-20] MEDS: INSULIN DRIP PREMIX 100 UNIT/100 ML PLAST..BAG 9.866 UNIT IV (13:04)
[2023-09-20 13:10] LABS: Troponin I < 0.012 ng/mL (0.01-0.034)
[2023-09-20] MEDS: SODIUM CHLORIDE 0.9% 1,000 ML 200 ML IV (13:21)
[2023-09-20] MEDS: NICOTINE 21 MG PATCH TOP (14:19)
--- NOTE | 2023-09-20 14:28 | PM.HP.1 ---
History of Present Illness <[facility] - Last Filed: 09/20/23 16:14> History of Present Illness Chief complaint: SOB vomitting dizzy lightheaded Narrative: Mao Ybarra is a 43 YO M with a PMH of type I DM, and bipolar affective disorder. He is presenting today in DKA with vomiting, epigastric discomfort and chest tightness. He has vomited 8 times within the last 3 days. He reports having to suppress the sensation of vomiting multiple times in the past 3 days. Denies any bloody emesis. His last meal was 3 nights ago and his last drink was 4 nights ago. He has a history of alcohol abuse but did not drink anymore than usual on Friday. He reports struggling with heart burn in the past however, this episode of epigastric burning is much worse in severity. Thinks he could have ruptured his esophagus from repeated vomiting. He also reports his Dexcom 3 days ago and he has been unable to monitor his blood glucose levels. He has been injecting insulin randomly in the last couple of days. <Alex Bustillos DO - Last Filed: 09/20/23 16:48> History of Present Illness Date Patient Seen: 09/20/23 Narrative: Mao Ybarra is a 43 YO M with a PMH of type I DM, and bipolar affective disorder. He is presenting today in DKA with vomiting, epigastric discomfort and chest tightness. He has vomited 8 times within the last 3 days. He reports having to suppress the sensation of vomiting multiple times in the past 3 days. Denies any bloody emesis. His last meal was 3 nights ago and his last drink was 4 nights ago. He has a history of alcohol abuse but did not drink anymore than usual on Friday. He reports struggling with heart burn in the past however, this episode of epigastric burning is much worse in severity. Thinks he could have ruptured his esophagus from repeated vomiting. He also reports his Dexcom 3 days ago and he has been unable to monitor his blood glucose levels. He has been injecting insulin randomly in the last couple of days. He reports anxiety and would like ativan for it. Also been having chest tightness with breathing. He denies chest pain, syncope, hematemesis, or palpitations. [facility] <Elsa [facility] - Last Filed: 09/20/23 16:14> Medical History Diabetes Alcoholism Post traumatic stress disorder (PTSD) Bipolar affective disorder, current episode mild Social History household members: family Smoking Status: Current every day smoker Meds <[facility] Last Filed: 09/20/23 16:14> Home Medications and Allergies Home Medications Medication Instructions Recorded Confirmed Type lamotrigine 150 mg tablet 150 mg PO BEDTIME 08/06/20 09/20/23 History insulin glargine 100 unit/mL (3 25 unit SUBCUT DAILY 02/24/21 09/20/23 History mL) subcutaneous pen (Lantus Solostar U-100 Insulin) insulin lispro 100 unit/mL 1 sliding scale dose SUBCUT 09/12/21 09/20/23 History subcutaneous cartridge (Humalog USEASDIRECTD U-100 Insulin) duloxetine 20 mg capsule,delayed 20 mg PO DAILY #14 caps 09/20/21 09/20/23 Rx release Allergies Allergy/AdvReac Type Severity Reaction Status Date / Time No Known Drug Allergies Allergy Verified 04/28/21 14:32 Review of Systems <[facility] Last Filed: 09/20/23 16:14> Review of Systems Narrative: Gen: + weight loss, + fatigue Resp: + dyspnea, - cough CV: - palpitations, - diaphoresis GI: + vomiting, + diarrhea Neuro: + dizziness, - numbness and tingling Psych: + anxiety Exam <[facility] [[email or web address]] Filed: 09/20/23 16:14> Vital Signs (past 8 hours): - 09/20/23 12:08 09/20/23 12:15 09/20/23 12:24 Temperature 97.3 F L Pulse Rate 132 H 120 H Respiratory Rate 18 Blood Pressure 128/82 139/92 H Pulse Oximetry 98 100 Oxygen Delivery Method Room Air 09/20/23 12:24 09/20/23 12:30 09/20/23 13:00 Temperature Pulse Rate 118 H 112 H 112 H Respiratory Rate 17 18 20 Blood Pressure Pulse Oximetry 100 99 100 Oxygen Delivery Method Oxygen Delivery Method Room Air Narrative Exam Narrative: Gen: NAD, appearing Resp: increased respiratory effort, decreased air movement b/l CV: tachycardic, regular rhythm, no murmurs ABD: soft, non-distended, epigastric tenderness upon palpation <Alex Bentley BustillosDO - Last Filed: 09/20/23 16:48> Narrative Exam Narrative: Gen: anxious appearing, thin Resp: increased respiratory effort, decreased air movement b/l CV: tachycardic, regular rhythm, no murmurs ABD: soft, non-distended, epigastric tenderness upon palpation Objective <[facility] - Last Filed: 09/20/23 16:14> Labs 09/20/23 12:25 09/20/23 16:08 Labs: Laboratory Results - last 24 hr 09/20/23 09/20/23 09/20/23 12:25 12:25 12:36 WBC 11.8 H RBC 5.45 Hgb 16.5 Hct 49.0 MCV 89.9 MCH 30.2 MCHC 33.6 RDW 13.1 Plt Count 293 Neut % (Auto) 75.0 Lymph % (Auto) 14.9 L [place] % (Auto) 9.0 Eos % (Auto) 0.3 L Baso % (Auto) 0.8 Neut # (Auto) 8800 H Lymph # (Auto) 1800 [place] # (Auto) 1100 H Eos # (Auto) 0 Baso # (Auto) 100 VBG pH 7.26 L VBG pCO2 32.5 L VBG pO2 48 H VBG HCO3 15 L VBG Total CO2 16 L VBG O2 Saturation 78 H VBG Base Excess -12.0 L FiO2 21 Sodium 131 L Potassium 4.9 Chloride 95 L Carbon Dioxide 7 L* BUN 17 Creatinine 1.18 Estimated GFR > 60 BUN/Creatinine Ratio 14.4 Glucose 488 H* Calcium 10.3 H Phosphorus 3.7 Magnesium 2.7 H Total Bilirubin 1.0 AST 20 ALT 19 Alkaline Phosphatase 147 H Total Creatine Kinase 32 L Troponin I < 0.012 Total Protein 9.3 H Albumin 5.5 H Globulin 3.8 Albumin/Globulin Ratio 1.4 Lipase 88 Ethyl Alcohol < 10 Cancelled Ketones 8.92 H Assessment & Plan <Elsa Hirsch - Last Filed: 09/20/23 16:14> Assessment & Plan narrative: #DKA -poor glucose control for several days - continue insulin drip until gap closes - continue k+ supplementation - begin dextrose with 0.45 NS once glucose is at 250 - chest tightness and dyspnea are improving with treatment #Epigastric Pain - secondary to persistent vomiting - start PPI - continue ondansetron #Anxiety - start .5 atavan q4 PRN #Chest tightness - multifactorial from DKA, anxiety, GERD - treat as above #Type I Diabetic - hold lispro and glargine until gap closes and is able to tolerate food #Bipolar Disorder - continue lamotragine and duloxatine <Alex Bustillos DO - Last Filed: 09/20/23 16:48> Assessment & Plan narrative: #acute DKA - ketones +, gap of 29, BG 488 - poor glucose control for several days, with only intermittent subq insulin use, A1c 12.4% - continue insulin drip until gap closes - continue k+ supplementation - begin dextrose with 0.45 NS once glucose is at 250 - chest tightness and dyspnea are now improving with treatment #Epigastric Pain - secondary to persistent vomiting vs GERD - start PPI with maalox PRN #Anxiety - start 0.5 [place]avan q4 PRN #Chest tightness - multifactorial from DKA, anxiety, GERD - treat as above #Type I Diabetic - hold lispro and glargine until gap closes and is able to tolerate food - then continue lantus 25u daily and SSI #Bipolar Disorder - continue lamotragine and duloxatine Code status is full code. DVT prophylaxis with SCDs. Proxy is parents. I have reviewed home meds and used all available resources to reconcile the home meds. Case discussed with ED physician/APC and patient will be admitted to the hospitalist service for further workup and management. This patient will be admitted as ICU obs and will require less than 2 midnights of hospital time to treat DKA. Quality <Elsa Cuevas - Last Filed: 09/20/23 16:14> VTE Deep Vein Thrombosis/Pulmonary Embolism Present on Admission: No
[2023-09-20] MEDS: POTASSIUM CHLORIDE IN WATER 10 MEQ/100 ML PIGGYBACK 100 MEQ IV ×5 (14:30→23:09)
[2023-09-20] MEDS: LORazepam 0.5 MG TABLET PO ×2 (14:32→16:25)
[2023-09-20 14:40] LABS: Hemoglobin A1C% w Est Avg Glu 12.4 % (4.0-6.0)
[2023-09-20] MEDS: DEXTROSE 10 % IN WATER 1,000 ML 130 ML IV (15:58)
[2023-09-20 16:30] LABS: BUN Creatinine Ratio 21.7 (6-22); Blood Urea Nitrogen 15 mg/dL (9-20); Calcium 8.5 mg/dL (8.4-10.2); Carbon Dioxide 15 mmol/L (22-32); Chloride 105 mmol/L (98-107); Estimated Glomerular Filt Rate > 60 mL/min (>60); Glucose 101 mg/dL (70-100); HEMOLYSIS < 15 (0-50); Potassium 4.1 mmol/L (3.4-5.1); Sodium 132 mmol/L (137-145)
[2023-09-20] MEDS: DEXTROSE 5%-0.45% NS 1,000 ML 98 ML IV (17:06)
[2023-09-20] MEDS: MAG HYDROX/ALUM/SIMETH 30 ML UDC PO (19:41)
[2023-09-20 20:20] LABS: BUN Creatinine Ratio 20.6 (6-22); Blood Urea Nitrogen 13 mg/dL (9-20); Calcium 8.6 mg/dL (8.4-10.2); Carbon Dioxide 20 mmol/L (22-32); Chloride 106 mmol/L (98-107); Estimated Glomerular Filt Rate > 60 mL/min (>60); Glucose 65 mg/dL (70-100); HEMOLYSIS < 15 (0-50); Potassium 3.1 mmol/L (3.4-5.1); Sodium 133 mmol/L (137-145)
[2023-09-20] MEDS: lamoTRIgine 100 MG TABLET 150 MG PO (20:53)
[2023-09-21] VITALS (24 sets, daily range): BP systolic 105–165; BP diastolic 64–88; PULSE 86–113; RESP 13–24; TEMP 36.1–37.2; O2SAT 96–100
[2023-09-21] MEDS: POTASSIUM CHLORIDE IN WATER 10 MEQ/100 ML PIGGYBACK 100 MEQ IV ×6 (00:13→06:26)
[2023-09-21 00:50] LABS: BUN Creatinine Ratio 16.7 (6-22); Blood Urea Nitrogen 10 mg/dL (9-20); Calcium 8.6 mg/dL (8.4-10.2); Carbon Dioxide 22 mmol/L (22-32); Chloride 108 mmol/L (98-107); Estimated Glomerular Filt Rate > 60 mL/min (>60); Glucose 94 mg/dL (70-100); HEMOLYSIS < 15 (0-50); Potassium 3.6 mmol/L (3.4-5.1); Sodium 134 mmol/L (137-145)
[2023-09-21] MEDS: MELATONIN 3 MG TABLET 6 MG PO (03:04)
[2023-09-21 04:53] LABS: Add Manual Diff / Slide Review NO; Basophils Absolute Auto 0 /uL (0-100); Basophils Percent Auto 0.3 % (0-2); Eosinophils Absolute Auto 100 /uL (0-450); Eosinophils Percent Auto 1.7 % (2-4); Hematocrit 38.9 % (41-53); Hemoglobin 13.5 g/dL (13.5-17.5); Lymphocytes Absolute Auto 1800 /uL (1100-4500); Lymphocytes Percent Auto 25.2 % (25-40); Mean Corpuscular HGB Conc 34.6 % (30-36); Mean Corpuscular Hemoglobin 30.5 PG (26-34); Mean Corpuscular Volume 87.9 fL (80-100); Monocytes Absolute Auto 900 /uL (0-900); Monocytes Percent Auto 12.7 % (3-14); Neutrophils Absolute Auto 4200 /uL (1500-7000); Neutrophils Percent Auto 60.1 % (50-75); Platelet Count 204 X10^3/uL (150-400); Red Blood Cell Count 4.43 X10^6/uL (4.5-5.9); Red Cell Distribution Width 12.9 % (11.6-14.8)
[2023-09-21 05:09] LABS: BUN Creatinine Ratio 12.9 (6-22); Blood Urea Nitrogen 8 mg/dL (9-20); Calcium 8.6 mg/dL (8.4-10.2); Carbon Dioxide 22 mmol/L (22-32); Chloride 107 mmol/L (98-107); Estimated Glomerular Filt Rate > 60 mL/min (>60); Glucose 94 mg/dL (70-100); HEMOLYSIS < 15 (0-50); Potassium 3.6 mmol/L (3.4-5.1); Sodium 132 mmol/L (137-145)
[2023-09-21] MEDS: PANTOPRAZOLE DR 20 MG TABLET 40 MG PO (07:22)
[2023-09-21] MEDS: INSULIN GLARGINE 100 UNIT/ML 3ML PEN 25 UNIT SUBCUT (07:46)
[2023-09-21] MEDS: NICOTINE 21 MG PATCH TOP (08:15)
[2023-09-21] MEDS: DULOXETINE 20 MG CAPSULE PO (08:15)
[2023-09-21] MEDS: INSULIN LISPRO 100 UNIT/ML 3ML VIAL SUBCUT (08:59)
--- NOTE | 2023-09-21 10:43 | PM.DS.1 ---
History of Present Illness <Elsa Cuevas - Last Filed: 09/21/23 10:49> History of Present Illness Date Patient Seen: 09/20/23 Chief complaint: SOB vomitting dizzy lightheaded Narrative: Mao Ybarra is a 43 YO M with a PMH of type I DM, and bipolar affective disorder. He is presenting today in DKA with vomiting, epigastric discomfort and chest tightness. He has vomited 8 times within the last 3 days. He reports having to suppress the sensation of vomiting multiple times in the past 3 days. Denies any bloody emesis. His last meal was 3 nights ago and his last drink was 4 nights ago. He has a history of alcohol abuse but did not drink anymore than usual on Friday night. He reports struggling with heart burn in the past however, this episode of epigastric burning is much worse in severity. Thinks he could have ruptured his esophagus from repeated vomiting. He also reports his Dexcom 3 days ago and he has been unable to monitor his blood glucose levels. He has been injecting insulin randomly in the last couple of days. Discharge Providers <Elsa Cuevas - Last Filed: 09/21/23 10:49> Provider Date of admission: 09/20/23 13:08 Primary care physician: Radha Angela, movable bulkhead installer provider: Elsa Cuevas <Alex Bustillos DO - Last Filed: 09/21/23 11:47> Provider Discharge Date: 09/21/23 Summary <Elsa Cuevas - Last Filed: 09/21/23 10:49> Hospital Course Discharge Diagnosis: #DKA -poor glucose control for several days - continue insulin drip until gap closes - continue k+ supplementation - begin dextrose with 0.45 NS once glucose is at 250 - chest tightness and dyspnea are improving with treatment #Epigastric Pain - secondary to persistent vomiting - start PPI - continue ondansetron #Anxiety - start .5 [place] q4 PRN #Chest tightness - multifactorial from DKA, anxiety, GERD - treat as above #Type I Diabetic - hold lispro and glargine until gap closes and is able to tolerate food #Bipolar Disorder - continue lamotragine and duloxatine Hospital Course: Pt was in DKA, with a bicarb of 7 and urine ketones at 8. He was experiencing systemic symptoms from his DKA. After an insulin drip overnight and proper control of his blood glucose levels during his stay his systemic symptoms have subsided. He ate breakfast and the insulin drip was discontinued. He will follow up with a music educator at [employer] to learn how to use his insulin pump. <Alex Bustillos DO - Last Filed: 09/21/23 11:47> Hospital Course Discharge Diagnosis: #acute DKA - ketones +, gap of 29, BG 488 - poor glucose control for several days, with only intermittent subq insulin use, A1c 12.4% - continue insulin drip until gap closes - continue k+ supplementation - begin dextrose with 0.45 NS once glucose is at 250 - chest tightness and dyspnea are now resolved with treatment - had rapid recovery of DKA over 1 night #Epigastric Pain - secondary to persistent vomiting vs GERD - start PPI with maalox PRN #Anxiety - start 0.5 [place] q4 PRN #Chest tightness - multifactorial from DKA, anxiety, GERD - treat as above #Type I Diabetic - hold lispro and glargine until gap closes and is able to tolerate food - then continue lantus 25u daily and SSI #Bipolar Disorder - continue lamotragine and duloxatine Hospital Course: Pt admitted for DKA, with a bicarb of 7, ketones positive and gap of 29. He was experiencing systemic symptoms from his DKA including chest tightness, NV and epigastric burning. After an insulin drip overnight and proper control of his blood glucose levels during his stay his systemic symptoms have subsided and his gap closed. He ate breakfast and the insulin drip was discontinued and he was transitioned to his subq lantus. He had fairly rpaid recovery from DKA. Was given script for PPI on discharge. He will follow up with a music educator at [employer] to learn how to use his insulin pump. Exam <Elsa Cuevas - Last Filed: 09/21/23 10:49> Vital Signs (past 8 hours): - 09/21/23 03:00 09/21/23 03:00 09/21/23 03:30 Temperature Pulse Rate 95 H 95 H Respiratory Rate 19 21 Blood Pressure 122/88 Pulse Oximetry 99 98 09/21/23 04:00 09/21/23 04:00 09/21/23 04:30 Temperature Pulse Rate 96 H 91 H Respiratory Rate 19 13 Blood Pressure 114/83 Pulse Oximetry 99 99 09/21/23 05:00 09/21/23 05:00 09/21/23 05:00 Temperature 97 F L Pulse Rate 86 Respiratory Rate 17 Blood Pressure 105/64 Pulse Oximetry 97 09/21/23 05:30 09/21/23 06:00 09/21/23 06:00 Temperature Pulse Rate 87 87 Respiratory Rate 17 18 Blood Pressure 108/72 Pulse Oximetry 97 98 09/21/23 06:30 09/21/23 07:00 09/21/23 07:00 Temperature Pulse Rate 90 92 H Respiratory Rate 19 18 Blood Pressure 106/66 Pulse Oximetry 97 98 09/21/23 07:30 09/21/23 08:00 09/21/23 08:00 Temperature 97.8 F Pulse Rate 92 H 96 H Respiratory Rate 22 23 Blood Pressure Pulse Oximetry 99 100 09/21/23 08:00 09/21/23 08:30 09/21/23 09:00 Temperature Pulse Rate 113 H 102 H Respiratory Rate 24 22 Blood Pressure 124/85 Pulse Oximetry 100 99 09/21/23 09:00 09/21/23 09:30 09/21/23 10:00 Temperature Pulse Rate 104 H 96 H Respiratory Rate 21 21 Blood Pressure 123/77 Pulse Oximetry 98 99 09/21/23 10:00 Temperature Pulse Rate Respiratory Rate Blood Pressure 116/80 Pulse Oximetry Oxygen Delivery Method Room Air Narrative Exam Narrative: Gen: anxious appearing, thin Resp: increased respiratory effort, decreased air movement b/l CV: tachycardic, regular rhythm, no murmurs ABD: soft, non-distended, epigastric tenderness upon palpation Objective <[facility] - Last Filed: 09/21/23 10:49> Labs 09/21/23 04:23 09/21/23 04:23 Labs: Laboratory Results - last 24 hr 09/20/23 09/20/23 09/20/23 12:25 12:25 12:36 WBC 11.8 H RBC 5.45 Hgb 16.5 Hct 49.0 MCV 89.9 MCH 30.2 MCHC 33.6 RDW 13.1 Plt Count 293 Neut % (Auto) 75.0 Lymph % (Auto) 14.9 L [place] % (Auto) 9.0 Eos % (Auto) 0.3 L Baso % (Auto) 0.8 Neut # (Auto) 8800 H Lymph # (Auto) 1800 [place] # (Auto) 1100 H Eos # (Auto) 0 Baso # (Auto) 100 VBG pH 7.26 L VBG pCO2 32.5 L VBG pO2 48 H VBG HCO3 15 L VBG Total CO2 16 L VBG O2 Saturation 78 H VBG Base Excess -12.0 L FiO2 21 Sodium 131 L Potassium 4.9 Chloride 95 L Carbon Dioxide 7 L* BUN 17 Creatinine 1.18 Estimated GFR > 60 BUN/Creatinine Ratio 14.4 Glucose 488 H* Hemoglobin A1c 12.4 H Calcium 10.3 H Phosphorus 3.7 Magnesium 2.7 H Total Bilirubin 1.0 AST 20 ALT 19 Alkaline Phosphatase 147 H Total Creatine Kinase 32 L Troponin I < 0.012 Total Protein 9.3 H Albumin 5.5 H Globulin 3.8 Albumin/Globulin Ratio 1.4 Lipase 88 Ethyl Alcohol < 10 Cancelled Ketones 8.92 H 09/20/23 09/20/23 09/21/23 16:08 20:00 00:20 WBC RBC Hgb Hct MCV MCH MCHC RDW Plt Count Neut % (Auto) Lymph % (Auto) [place] % (Auto) Eos % (Auto) Baso % (Auto) Neut # (Auto) Lymph # (Auto) [place] # (Auto) Eos # (Auto) Baso # (Auto) VBG pH VBG pCO2 VBG pO2 VBG HCO3 VBG Total CO2 VBG O2 Saturation VBG Base Excess FiO2 Sodium 132 L 133 L 134 L Potassium 4.1 3.1 L 3.6 Chloride 105 106 108 H Carbon Dioxide 15 L 20 L 22 BUN 15 13 10 Creatinine 0.69 0.63 L 0.60 L Estimated GFR > 60 > 60 > 60 BUN/Creatinine Ratio 21.7 20.6 16.7 Glucose 101 H D 65 L 94 Hemoglobin A1c Calcium 8.5 8.6 8.6 Phosphorus Magnesium Total Bilirubin AST ALT Alkaline Phosphatase Total Creatine Kinase Troponin I Total Protein Albumin Globulin Albumin/Globulin Ratio Lipase Ethyl Alcohol Ketones 09/21/23 04:23 WBC 7.0 RBC 4.43 L Hgb 13.5 Hct 38.9 L MCV 87.9 MCH 30.5 MCHC 34.6 RDW 12.9 Plt Count 204 Neut % (Auto) 60.1 Lymph % (Auto) 25.2 [place] % (Auto) 12.7 Eos % (Auto) 1.7 L Baso % (Auto) 0.3 Neut # (Auto) 4200 Lymph # (Auto) 1800 [place] # (Auto) 900 Eos # (Auto) 100 Baso # (Auto) 0 VBG pH VBG pCO2 VBG pO2 VBG HCO3 VBG Total CO2 VBG O2 Saturation VBG Base Excess FiO2 Sodium 132 L Potassium 3.6 Chloride 107 Carbon Dioxide 22 BUN 8 L Creatinine 0.62 L Estimated GFR > 60 BUN/Creatinine Ratio 12.9 Glucose 94 Hemoglobin A1c Calcium 8.6 Phosphorus Magnesium Total Bilirubin AST ALT Alkaline Phosphatase Total Creatine Kinase Troponin I Total Protein Albumin Globulin Albumin/Globulin Ratio Lipase Ethyl Alcohol Ketones PFSH <Elsa [facility] - Last Filed: 09/21/23 10:49> Medical History Diabetes Alcoholism Post traumatic stress disorder (PTSD) Bipolar affective disorder, current episode mild Social History household members: family Smoking Status: Current every day smoker Discharge Plan Discharge Plan Patient Disposition: Home Provider Discharge Comment: You were in DKA. This was reversed with an insulin drip/pump. You should definitely get your home insulin pump arranged so you can use this to manage your diabetes going forward. I've put you on protonix for your reflux. Discharge orders & Medications Prescriptions: New pantoprazole 20 mg Tablet,Delayed Release (Dr/Ec) 20 mg PO 0700 30 Days Qty: 30 0RF Continued Humalog U-100 Insulin 100 unit/mL cartridge 1 sliding scale dose SUBCUT USEASDIRECTD duloxetine 20 mg capsule,delayed release(DR/EC) 20 mg PO DAILY Qty: 14 0RF lamotrigine 150 mg tablet 150 mg PO BEDTIME insulin glargine [Lantus Solostar U-100 Insulin] 100 unit/mL (3 mL) insulin pen 25 unit SUBCUT DAILY Follow up/Referrals: Radha Angela RN [Primary Care Provider] - 2 Weeks Visit Report/Discharge Packet Stand Alone Forms: Patient Portal/API, Stroke Signs & Symptoms Discharge Data Primary Care Provider: Radha Angela Quality <Elsa Cuevas - Last Filed: 09/21/23 10:49> VTE Deep Vein Thrombosis/Pulmonary Embolism Present on Admission: No
--- NOTE | 2023-09-21 11:00 | CM.DANOTE ---
Patient is a 43 yo male who was admitted INPT on 09/20/23 for DKA. Pt has [facility]CR and [facility] for insurance and his PCP is Radha Angela. EMR was reviewed. Per MD, pt with hx of diabetes type 1, bipolar, ETOH and admitted for DKA but now transitioned off the insulin pump and somewhat brittle diabetic and recovered quickly. discussed pt using his insulin pump that is new but pt has not used yet as he did not feel he had adequate understanding of how to use it properly and pt now agreeable with f/u with the [facility] for diabetes management and education. Pt medically stable to discharge home today with outpt f/u. SW met briefly bedside with pt and explained role and he confirms he lives in [place] with his parents and is independent with ADLs at baseline. Pt agreeable with f/u with his PCP and diabetes education for use of insulin pump. Pt with hx of SI in the ED at [place] in 2020 and 2016 but denies any current need for resources and denies any mental health instability at this time or for the past couple years. Pt preference is to discharge home with family today and does not anticipate any further needs. Plan: SW to follow closely for plan of discharge home today with close outpt f/u for diabetes education and no further SW needs at this time. 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 No Advance Directives on File No History Provided By Patient,Medical Record Has Patient been admitted in last 30 No days? Prior Living Arrangements House Household Members family Type of transporation used prior to Drives own vehicle admit Independent with ADL's Yes Is patient alert and oriented? Yes Caregiver for Another No DME Already Rented / Owned Other Comment new insulin pump Barriers to Discharge No Discharge Plan Home Transportation Arrangement Family Referrals Initiated None needed,Other Additional Comment discussed using the insulin pump pt has and f/u for teaching Whiteboard Updated in Patient Room with Yes name and ext. # of Environment Friendly Landscape Designer Review Status In Process Please Provide Date Initial DC 09/21/23 Assessment Was Performed Next Review Type Continued Stay Review
== END 2023-09-21 12:01 | disposition home or self-care (01) | DRG 638 ==
LOC: ED 12:53 → AC 13:09 → ICU 13:17
PROVIDERS: Admitting Provider Student in an Organized Health Care Education/Training Program; Emergency Provider Emergency Medicine; PCP Nurse Practitioner Family; Referring Provider Emergency Medicine; Visit Provider Student in an Organized Health Care Education/Training Program
DX: E10.10 Type 1 diabetes mellitus with ketoacidosis without coma (principal); E87.1 Hypo-osmolality and hyponatremia; F31.89 Other bipolar disorder; F41.9 Anxiety disorder, unspecified; K21.9 Gastro-esophageal reflux disease without esophagitis
CPT/HCPCS: 36415; 80048; 80053; 80320; 82009; 82550; 82805; 82962; 83036; 83690; 83735; 84100; 84484; 85025; 93005; 96365; 99284; 99285; J1815

== ENCOUNTER 2024-01-16 11:53 | Emergency (ER) | payer MEDICARE, MEDICAID, SELFPAY ==
[2023-09-20 13:15] VITALS: BMI 19.1
[2024-01-16] VITALS (7 sets, daily range): BP systolic 127–148; BP diastolic 87–106; PULSE 84–114; RESP 18–33; TEMP 36.6; O2SAT 96–99; BMI 21.7
--- NOTE | 2024-01-16 12:02 | DI.RAD.S_ITS ---
PROCEDURE: XR CHEST 1V INDICATIONS: chest pain TECHNIQUE: One view of the chest was acquired. COMPARISON: None. FINDINGS: Surgical changes and devices: None. Lungs and pleura: Lungs are clear. No pleural effusions or pneumothorax. Mediastinum: Mediastinal contours appear normal. Heart size is normal. Bones and chest wall: No suspicious bony lesions. Overlying soft tissues appear unremarkable. IMPRESSION: No acute cardiopulmonary abnormality is seen. Dictated by: Bang Dillard M.D. on 01/16/2024 at 12:59 Approved by: Bang Dillard M.D. on 01/16/2024 at 12:59
--- NOTE | 2024-01-16 12:12 | EKG_ITS ---
[id number] [place] [address] Test Date: 2024-01-16 Pat Name: Mao Ybarra Department: Room: Gender: Male Nurse Companion: : 1980 Requested By: Order Number: [id number] Reading MD: Antoni Anderson MD Measurements Intervals [place] Rate: 107 P: 79 KS: 166 QRS: -52 QRSD: 78 T: 57 QT: 318 QTc: 424 Interpretive Statements Sinus tachycardia Left axis deviation Anteroseptal infarct , age undetermined Electronically Signed On 01-16-2024 14:30:03 PDT by Antoni Anderson MD
[2024-01-16 12:20] LABS: Add Manual Diff / Slide Review NO; Basophils Absolute Auto 100 /uL (0-100); Basophils Percent Auto 0.6 % (0-2); Eosinophils Absolute Auto 300 /uL (0-450); Eosinophils Percent Auto 2.9 % (2-4); Hematocrit 49.3 % (41-53); Hemoglobin 16.8 g/dL (13.5-17.5); Lymphocytes Absolute Auto 2600 /uL (1100-4500); Lymphocytes Percent Auto 29.9 % (25-40); Mean Corpuscular HGB Conc 34.1 % (30-36); Mean Corpuscular Hemoglobin 30.9 PG (26-34); Mean Corpuscular Volume 90.6 fL (80-100); Monocytes Absolute Auto 700 /uL (0-900); Monocytes Percent Auto 7.7 % (3-14); Neutrophils Absolute Auto 5200 /uL (1500-7000); Neutrophils Percent Auto 58.9 % (50-75); Platelet Count 255 X10^3/uL (150-400); Red Blood Cell Count 5.44 X10^6/uL (4.5-5.9); Red Cell Distribution Width 13.7 % (11.6-14.8); White Blood Cell Count 8.8 X10^3/uL (4.5-11.0)
[2024-01-16 12:24] LABS: INR 0.8 (0.9-1.3); Prothrombin Time 9.7 SECONDS (9.4-12.5)
[2024-01-16 12:27] LABS: PTT Partial Thromboplastin Tim 37 SECONDS (25.1-36.5)
[2024-01-16 12:29] LABS: Alanine Aminotransferase 15 IU/L (<50); Albumin 4.4 g/dL (3.5-5.0); Albumin Globulin Ratio 1.6 (1.0-2.8); Alkaline Phosphatase 107 U/L (38-126); Aspartate Aminotransferase 24 IU/L (17-59); BUN Creatinine Ratio 12.4 (6-22); Bilirubin Total 0.7 mg/dL (0.2-1.3); Blood Urea Nitrogen 11 mg/dL (9-20); Calcium 9.5 mg/dL (8.4-10.2); Carbon Dioxide 25 mmol/L (22-32); Chloride 99 mmol/L (98-107); Creatine Kinase 91 U/L (55-170); Estimated Glomerular Filt Rate > 60 mL/min (>60); Globulin 2.7 g/dL (1.7-4.1); Glucose 319 mg/dL (70-100); HEMOLYSIS 17 (0-50); Lipase 32 U/L (23-300); Magnesium 2.1 mg/dL (1.6-2.3); Sodium 132 mmol/L (137-145); Total Protein 7.1 g/dL (6.3-8.2)
--- NOTE | 2024-01-16 12:34 | DI.CT.S_ITS ---
PROCEDURE: CT CERVICAL SPINE WO CON INDICATIONS: left shoulder pain, tingling TECHNIQUE: Noncontrast 3 mm thick sections acquired from the skull base to the T4 level. Sagittal and coronal reformats were then constructed. For radiation dose reduction, the following was used: automated exposure control, adjustment of mA and/or kV according to patient size. COMPARISON: None. FINDINGS: Image quality: Excellent. Bones: No fractures or dislocations. Visualized superior ribs are intact. Moderate degenerative disc disease over the cervical spine is noted most pronounced posteriorly at C5-6 Soft tissues: Prevertebral soft tissues are normal in thickness. No paravertebral hematomas. No apical pneumothoraces. Faintly seen at the C5-6 level is a left posterolateral disc herniation extending into the internal os of the left neural foramen, as likely etiology for current symptomatology. IMPRESSION: Please note that CT scanning generally is excellent for detecting fractures and traumatic subluxation but is suboptimal when compared to MR scanning for accurate assessment of disc herniation and spinal and foraminal stenosis. With this qualification there appears to be a relatively large left posterolateral disc herniation at C5-6, impinging on the left neural foramen at this level as the likely etiology for current symptoms. Follow-up with MR scanning likely is warranted. Dictated by: Karl Leal M.D. on 01/16/2024 at 13:19 Approved by: Karl Leal M.D. on 01/16/2024 at 13:22
[2024-01-16 12:40] LABS: NT-proBNP (BNP-Adult 18+) 175 pg/mL (<125); Troponin I < 0.012 ng/mL (0.01-0.034)
[2024-01-16] MEDS: KETOROLAC 30 MG/ML VIAL 15 MG IV (12:41)
--- NOTE | 2024-01-16 13:28 | EKG_ITS ---
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
[2024-01-16 13:33] LABS: D Dimer < 215 ng/ml (<500)
--- NOTE | 2024-01-16 13:41 | ED.EXTPRO ---
HPI - Extremity Problem General Chief complaint: Extremity Problem,Nontraumatic Stated complaint: l shoulder numbness/tingles t-8 Time Seen by Provider: 01/16/24 12:32 Source: patient Mode of arrival: Ambulatory History of Present Illness HPI Narrative: 43-year-old male complains of 8 days duration of left scapular area discomfort, with some tingling to left upper arm. No neck problems. No worsening with neck rotation or lateral bending to the neck. No blunt trauma. No skin rashes or changes. He has been trying rolling pin local massage over his scapula and upper back, taking Flexeril muscle relaxants, heating pads, all without relief. No shortness of breath but does notice with deep inspiration there is worse pain in that scapular area. Related Data Home Medications Medication Instructions Recorded Confirmed insulin glargine 100 unit/mL (3 25 unit SUBCUT DAILY 02/24/21 01/12/24 mL) subcutaneous pen (Lantus Solostar U-100 Insulin) insulin lispro 100 unit/mL 1 sliding scale dose SUBCUT 09/12/21 01/12/24 subcutaneous cartridge (Humalog USEASDIRECTD U-100 Insulin) hydroxyzine HCl 25 mg tablet 25 mg PO 4XD 01/12/24 01/12/24 insulin pump cart,automated,BT #5 ea 01/12/24 01/12/24 (Omnipod 5 G6 Pods (Gen 5) subcutaneous cartridge) insulin pump cartridge,automated #1 ea 01/12/24 01/12/24 dose,BT with controller subcutaneous (Omnipod 5 G6 Intro Kit (Gen 5) subcutaneous cartridge with controller) lamotrigine 25 mg chewable 0 mg PO 01/12/24 01/12/24 dispersible tablet Previous Rx's Medication Instructions Recorded duloxetine 20 mg capsule,delayed 20 mg PO DAILY #14 caps 09/20/21 release cyclobenzaprine 5 mg tablet 5 mg PO TID PRN muscle spasm #20 01/12/24 tabs diazepam 5 mg tablet (Valium) 5 mg PO BID PRN muscle spasm #7 01/16/24 tabs oxycodone 5 mg tablet 5 mg PO Q6H PRN pain #10 tabs 01/16/24 Allergies Allergy/AdvReac Type Severity Reaction Status Date / Time No Known Drug Allergies Allergy Verified 01/16/24 12:00 Review of Systems Review of Systems Narrative: see HPI Patient History Medical History Diabetes Alcoholism Post traumatic stress disorder (PTSD) Bipolar affective disorder, current episode mild Social History household members: family Smoking Status: Current every day smoker Smoking Status: Current every day smoker tobacco type: cigarettes alcohol intake frequency: 0-2 drinks per day Alcohol type: beer, wine, hard liquor and other Substance Use Type: does not use Exam Narrative Exam Narrative: GENERAL: Well-developed patient, in mild distress. HEAD: Atraumatic. Normocephalic. EYES: Pupils equal round and reactive. Extraocular motions intact. No scleral icterus. No injection or drainage. ENT: Nose without bleeding, purulent drainage. Throat without erythema, tonsillar hypertrophy or exudate. Airway patent. NECK: Trachea midline. Non tender CARDIOVASCULAR: Regular rate and rhythm without murmurs, gallops, or rubs. RESPIRATORY: Clear to auscultation. Breath sounds equal bilaterally. No wheezes, rales, or rhonchi. GASTROINTESTINAL: Abdomen soft, non-tender, nondistended. EXTREMITIES: No gross deformity left shoulder arm elbow foreram wrist hand fingers. Some tenderness around upper and lower left rhomboid musculature, also along the lateral edge of the left scapula, some erythema consistent with heating pad placement, doubt cellulitis, no vesicles, doubt zoster rash at this time. No deformity to shoulder, can move shoulder flex and extend. No distal left upper extremity deformities, good cap refill fingers left hand. BACK: Nontender without deformity or crepitance. No flank tenderness. NEURO: AOx3. Nonfocal neuro exam. SKIN: No rash or erythema of visible areas Initial Vital Signs Initial Vital Signs: Vital Signs Temperature 97.8 F 01/16/24 11:56 Pulse Rate 114 H 01/16/24 11:56 Respiratory Rate 18 01/16/24 11:56 Blood Pressure 127/87 01/16/24 11:56 Pulse Oximetry 99 01/16/24 11:56 Oxygen Delivery Method Room Air 01/16/24 11:56 Course Orders Ordered: ED Orders 01/16/24 12:02 XR chest 1V Stat EKG-12 Lead Stat 01/16/24 12:05 Complete Blood Count AUTO DIFF Stat Comprehensive Metabolic Panel Stat D Dimer Stat Lipase Stat Magnesium Stat NT-proBNP (BNP-Adult 18+) Stat PTT Partial Thromboplastin Harry Stat Prothrombin Time INR Stat Troponin & CK Cardiac Panel Stat 01/16/24 12:34 CT cervical spine wo con Stat 01/16/24 13:17 EKG-12 Lead Stat 01/16/24 15:00 Troponin I Stat Discontinued Medications Aspirin (Aspirin 81 Mg Chew Tab) 324 mg PO NOW ONE Stop: 01/16/24 12:03 Last Admin: 01/16/24 13:37 Dose: Not Given Documented By: COLLETTE Diazepam (Diazepam 10 Mg/2 Ml Syringe) 5 mg IV NOW ONE Stop: 01/16/24 14:31 Last Admin: 01/16/24 14:38 Dose: 5 mg Documented By: COLLETTE Diazepam (Diazepam 10 Mg/2 Ml Syringe) 5 mg IV NOW ONE Stop: 01/16/24 14:36 Last Admin: 01/16/24 14:39 Dose: Not Given Documented By: COLLETTE Sodium Chloride (Normal Saline 0.9%) 1,000 mls @ 1,000 mls/hr IV BOLUS ONE Stop: 01/16/24 15:18 Last Infusion: 01/16/24 15:20 Dose: Infused Documented By: Admin: 01/16/24 14:30 Dose: 1,000 mls/hr Documented By: COLLETTE Insulin Human Regular (Insulin Regular 100 Unit/Ml 3 Ml Vial) 5 unit SUBCUT NOW ONE Stop: 01/16/24 14:21 Last Admin: 01/16/24 14:29 Dose: Not Given Documented By: COLLETTE Ketorolac Tromethamine (Ketorolac 30 Mg/Ml Vial) 15 mg IV NOW ONE Stop: 01/16/24 12:35 Last Admin: 01/16/24 12:41 Dose: 15 mg Documented By: COLLETTE Oxycodone/Acetaminophen (Oxycodone/Apap 5/325 Prepack) 1 bottle MISC DIRECTED ONE Stop: 01/16/24 14:47 Last Admin: 01/16/24 15:19 Dose: Not Given Documented By: ALLEN Vital Signs Vital signs: Vital Signs - 8 hr 01/16/24 13:00 01/16/24 13:00 01/16/24 13:30 Pulse Rate 95 H Respiratory Rate 19 Blood Pressure 138/102 H 143/100 H Pulse Oximetry 96 Oxygen Delivery Method Room Air 08/16/24 13:30 01/16/24 14:00 01/16/24 14:00 Pulse Rate 91 H 89 Respiratory Rate 24 33 H Blood Pressure 146/103 H Pulse Oximetry 97 98 Oxygen Delivery Method Room Air 01/16/24 14:30 01/16/24 14:30 01/16/24 15:00 Pulse Rate 84 89 Respiratory Rate 27 H 25 H Blood Pressure 143/103 H Pulse Oximetry 97 98 Oxygen Delivery Method Room Air 01/16/24 15:00 01/16/24 15:30 01/16/24 15:30 Pulse Rate 92 H Respiratory Rate 19 Blood Pressure 148/106 H 136/101 H Pulse Oximetry 98 Oxygen Delivery Method MDM - Extremity (Nontraumatic) Lab Data 01/16/24 12:05 01/16/24 12:05 Labs: Lab Results 01/16/24 01/16/24 Range/Units 12:05 15:00 WBC 8.8 (4.5-11.0) X10^3/uL RBC 5.44 (4.5-5.9) X10^6/uL Hgb 16.8 (13.5-17.5) g/dL Hct 49.3 (41-53) % MCV 90.6 (80-100) fL MCH 30.9 (26-34) PG MCHC 34.1 (30-36) % RDW 13.7 (11.6-14.8) % Plt Count 255 (150-400) X10^3/uL Neut % (Auto) 58.9 (50-75) % Lymph % (Auto) 29.9 (25-40) % Clarke % (Auto) 7.7 (3-14) % Eos % (Auto) 2.9 (2-4) % Baso % (Auto) 0.6 (0-2) % Neut # (Auto) 5200 (7916-0605) /uL Lymph # (Auto) 2600 (3281-3517) /uL Clarke # (Auto) 700 (0-900) /uL Eos # (Auto) 300 (0-450) /uL Baso # (Auto) 100 (0-100) /uL PT 9.7 (9.4-12.5) SECONDS INR 0.8 L (0.9-1.3) APTT 37 H (25.1-36.5) SECONDS D-Dimer < 215 (<500) ng/ml Sodium 132 L (137-145) mmol/L Potassium 4.0 (3.4-5.1) mmol/L Chloride 99 (98-107) mmol/L Carbon Dioxide 25 (22-32) mmol/L BUN 11 (9-20) mg/dL Creatinine 0.89 (0.66-1.25) mg/dL Estimated GFR > 60 (>60) mL/min BUN/Creatinine Ratio 12.4 (6-22) Glucose 319 H (70-100) mg/dL Calcium 9.5 (8.4-10.2) mg/dL Magnesium 2.1 (1.6-2.3) mg/dL Total Bilirubin 0.7 (0.2-1.3) mg/dL AST 24 (17-59) IU/L ALT 15 (<50) IU/L Alkaline Phosphatase 107 (38-126) U/L Total Creatine Kinase 91 (55-170) U/L Troponin I < 0.012 < 0.012 (0.01-0.034) ng/mL NT-Pro-B Natriuret Pep 175 H (<125) pg/mL Total Protein 7.1 (6.3-8.2) g/dL Albumin 4.4 (3.5-5.0) g/dL Globulin 2.7 (1.7-4.1) g/dL Albumin/Globulin Ratio 1.6 (1.0-2.8) Lipase 32 (23-300) U/L Point of Care Testing Glucose POC 198 Imaging Data Chest x-ray: Radiologist's Impression: [address] [address] XRay Report Signed Patient: Mao Ybarra MR#: [id number] : 1980 Acct:[id number] Age/Sex: 43 / M Date of Service: 01/16/24 Loc: ED Accession Number: [id number] Procedure: XR chest 1V Ordering Provider: Mao Guido MD PROCEDURE: XR CHEST 1V INDICATIONS: chest pain TECHNIQUE: One view of the chest was acquired. COMPARISON: None. FINDINGS: Surgical changes and devices: None. Lungs and pleura: Lungs are clear. No pleural effusions or pneumothorax. Mediastinum: Mediastinal contours appear normal. Heart size is normal. Bones and chest wall: No suspicious bony lesions. Overlying soft tissues appear unremarkable. IMPRESSION: No acute cardiopulmonary abnormality is seen. Dictated by: Bang Dillard M.D. on 01/16/2024 at 12:59 Approved by: Bang Dillard M.D. on 01/16/2024 at 12:59 CT - cervical spine: Radiologist's Impression: Close Cervical Spine CT (Signed) Karl Leal - 01/16/24 Chest X-Ray (Signed) Bang Dillard - 01/16/24 Launch?[place] [address] CT Scan Report Signed Patient: Mao Ybarra MR#: [id number] : 1980 Acct:[id number] Age/Sex: 43 / M Date of Service: 01/16/24 Loc: ED Accession Number: [id number] Procedure: CT cervical spine wo con Ordering Provider: Mao Guido MD PROCEDURE: CT CERVICAL SPINE WO CON INDICATIONS: left shoulder pain, tingling TECHNIQUE: Noncontrast 3 mm thick sections acquired from the skull base to the T4 level. Sagittal and coronal reformats were then constructed. For radiation dose reduction, the following was used: automated exposure control, adjustment of mA and/or kV according to patient size. COMPARISON: None. FINDINGS: Image quality: Excellent. Bones: No fractures or dislocations. Visualized superior ribs are intact. Moderate degenerative disc disease over the cervical spine is noted most pronounced posteriorly at C5-6 Soft tissues: Prevertebral soft tissues are normal in thickness. No paravertebral hematomas. No apical pneumothoraces. Faintly seen at the C5-6 level is a left posterolateral disc herniation extending into the internal os of the left neural foramen, as likely etiology for current symptomatology. IMPRESSION: Please note that CT scanning generally is excellent for detecting fractures and traumatic subluxation but is suboptimal when compared to MR scanning for accurate assessment of disc herniation and spinal and foraminal stenosis. With this qualification there appears to be a relatively large left posterolateral disc herniation at C5-6, impinging on the left neural foramen at this level as the likely etiology for current symptoms. Follow-up with MR scanning likely is warranted. Dictated by: Karl Leal M.D. on 01/16/2024 at 13:19 Approved by: Karl Leal M.D. on 01/16/2024 at 13:22 ECG Data Attestation EKG: I personally reviewed and interpreted this ECG as follows: Interpretation: 1212, Sinus tachycardia with rate of 107, no obvious ST segment elevation depression or elevation changes. NH 166, QRS 78, QTC 424. 1328, normal sinus rhythm with rate 86, no obvious ST segment elevation or depression changes. NH 184, QRS 80, QTC 416. MDM Narrative Medical decision making narrative: Left scapula pain, tenderness rhomboids and lateral margin scapula, no skin changes, numbness to arm. CT Csp ordered from triage was negative. CXR ordered from triage was negative. EKG and troponin negative. D-dimer negative. Doubt cervical radiculopathy, clots, shoulder dislocation/subluxation, ACS. Suspect muscle spasm pulling scupla against brachial plexus. IV Valium, Dilaudid, Toradol. Symptoms improved. Rx for couple days anagesics and Valium for muscle relaxation. Recheck Friday advised, return precautions, home with family Critical Care Time Critical Care Time Critical Care Time: Yes Total Critical Care Time: 31 Attestation: The high probability of a clinically significant, sudden or life threatening deterioration of the [musculoskeletal, cardiopulmonary, vascular, spinocolumnal, neurologic] system(s) required my full and direct attention, intervention and personal management. The aggregate critical care time was [31] minutes. This time is in addition to time spent performing reported procedures but includes the following: [x] Data Review and interpretation [x] Patient assessment and monitoring of vital signs [x] Documentation [x] Medication orders and management Discharge Plan Departure Patient Disposition: Home Clinical Impression: Pain of left scapula, Rhomboid muscle strain, Subscapularis (muscle) sprain, Hyperglycemia, History of diabetes mellitus Activity Restrictions/Additional Instructions: Left scapular pain, EKG in blood testing not suggestive of heart attack. Chest x-ray including views of the left shoulder area unremarkable. CT cervical spine did not show any significant narrowing or problems suggestive of compression of the nerves at the level of the foramen of the cervical bones in the neck. Some tenderness along the rhomboid musculature around your scapula, and along the lateral edge, consistent with strain of the rhomboid and/or subscapularis muscle. When these are strain and spasming a can be pulled forward and compress the brachial plexus nerve, causing nerve numbness in your arm. Trial of pain medication including muscle relaxant IV Valium. Consider further Valium next few days over the weekend. History of diabetes known, elevated blood sugar, IV fluid given, you bolus herself with your insulin pump, sugar level improved, labs not consistent with diabetic ketoacidosis at this time. Take pain medications as needed, take muscle relaxant and needed. Recheck with your regular provider Friday. Return to this/nearest emergency department for any change worsening symptoms or any concerns prior Prescriptions: New diazepam [Valium] 5 mg tablet 5 mg PO BID PRN (Reason: muscle spasm) Qty: 7 0RF oxycodone 5 mg tablet 5 mg PO Q6H PRN (Reason: pain) Qty: 10 0RF No Action Humalog U-100 Insulin 100 unit/mL cartridge 1 sliding scale dose SUBCUT USEASDIRECTD duloxetine 20 mg capsule,delayed release(DR/EC) 20 mg PO DAILY Qty: 14 0RF hydroxyzine HCl 25 mg tablet 25 mg PO 4XD (DME) Omnipod 5 G6 Intro Kit (Gen 5) Cartridge See Rx Instructions .ROUTE ONCE Qty: 1 Rx Instructions: As directed (DME) Omnipod 5 G6 Pods (Gen 5) Cartridge See Rx Instructions .ROUTE Q3D Qty: 5 Rx Instructions: As directed lamotrigine 25 mg tablet, chewable dispersible 0 mg PO cyclobenzaprine 5 mg tablet 5 mg PO TID PRN (Reason: muscle spasm) Qty: 20 0RF insulin glargine [Lantus Solostar U-100 Insulin] 100 unit/mL (3 mL) insulin pen 25 unit SUBCUT DAILY Referrals: Carolyn Cristina MD [Physician] - Radha Angela ARNP, RN [Primary Care Provider] - Stand Alone Forms: Patient Portal/API
[2024-01-16] MEDS: SODIUM CHLORIDE 0.9% 1,000 ML 1000 ML IV (14:30)
[2024-01-16] MEDS: diazePAM 10 MG/2 ML SYRINGE 5 MG IV (14:38)
[2024-01-16 15:32] LABS: Troponin I < 0.012 ng/mL (0.01-0.034)
== END 2024-01-16 15:46 | disposition home or self-care (01) ==
PROVIDERS: Emergency Provider Emergency Medicine; PCP Nurse Practitioner Family
DX: S46.812A Strain of other muscles, fascia and tendons at shoulder and upper arm level, left arm, initial encounter (principal); S29.012A Strain of muscle and tendon of back wall of thorax, initial encounter; R07.9 Chest pain, unspecified; R00.0 Tachycardia, unspecified; E11.65 Type 2 diabetes mellitus with hyperglycemia
CPT/HCPCS: 36415; 71045; 72125; 80053; 82550; 82962; 83690; 83735; 83880; 84484; 85025; 85379; 85610; 85730; 93005; 93010; 96361; 96374; 96375; 99284; J1885; J3360

== ENCOUNTER 2024-02-19 08:29 | Emergency (ER) | payer MEDICARE, MEDICAID, SELFPAY ==
[2023-09-20 13:15] VITALS: BMI 19.1
[2024-02-19] VITALS (20 sets, daily range): BP systolic 111–162; BP diastolic 75–104; PULSE 84–118; RESP 20; TEMP 37; O2SAT 94–99; BMI 21.7
--- NOTE | 2024-02-19 08:44 | ED.GENADULT ---
HPI - General Adult General Chief complaint: Toxicology Problem Stated complaint: SI/ETOH withdrawl Time Seen by Provider: 02/19/24 08:31 Source: patient, EMS and RN notes reviewed Mode of arrival: EMS Limitations: no limitations History of Present Illness HPI narrative: This is a 43-year-old male insulin-dependent diabetic, alcohol abuse with complaint of alcohol withdrawal. Patient states he he will be sober for periods of time a year to in the drink for your 2. He states he has been drinking more than he typically does at least a L daily. States last drink was at 7:00 p.m., has been having anxiety, tremors, sweats, nausea, dry mouth states he has not had any diarrhea yet. He has had visual hallucinations in the past but not currently. Denies any prior history of seizures. Patient states he has been drinking heavily for the past 13 months. States most recently his symptoms have been exacerbated he has been having some neck pain was found to have cervical radiculopathy and has pain down his left arm. No weakness but is quite uncomfortable with any sort of movement. Had workup and imaging in the emergency department. This has been going on for about 6 weeks. His primary care physician had prescribed him [place] and he has since run out. EMS noted his glucose was 270, patient states his monitor read as 40 but he did not feel like he was low or in the 40 range. He does not regularly calibrate it. He states his sugars are typically well controlled because he can bolus sit with his alcohol use. Patient also notes he has been having some suicidal ideation, states that has been worse as he is had increased pain and his increased alcohol use. States he has had thoughts of harming himself with blunt force trauma or possibly a firearm although he states he does not have access to firearm. States he does not really want to kill himself but feels like it would not be so bad if he just was not in the world anymore. No homicidal ideation. Patient states home medications include insulin, duloxetine, lamotrigine. Has had prior cholecystectomy. Smokes daily, denies any regular marijuana or recreational drugs. Radha Angela is his primary care physician. Related Data Home Medications Medication Instructions Recorded Confirmed insulin glargine 100 unit/mL (3 25 unit SUBCUT DAILY 09/25/21 08/12/24 mL) subcutaneous pen (Lantus Solostar U-100 Insulin) insulin lispro 100 unit/mL 1 sliding scale dose SUBCUT 09/12/21 01/12/24 subcutaneous cartridge (Humalog USEASDIRECTD U-100 Insulin) hydroxyzine HCl 25 mg tablet 25 mg PO 4XD 01/12/24 01/12/24 insulin pump cart,automated,BT #5 ea 01/12/24 01/12/24 (Omnipod 5 G6 Pods (Gen 5) subcutaneous cartridge) insulin pump cartridge,automated #1 ea 01/12/24 01/12/24 dose,BT with controller subcutaneous (Omnipod 5 G6 Intro Kit (Gen 5) subcutaneous cartridge with controller) lamotrigine 25 mg chewable 0 mg PO 01/12/24 01/12/24 dispersible tablet Previous Rx's Medication Instructions Recorded duloxetine 20 mg capsule,delayed 20 mg PO DAILY #14 caps 09/20/21 release cyclobenzaprine 5 mg tablet 5 mg PO TID PRN muscle spasm #20 01/12/24 tabs diazepam 5 mg tablet (Valium) 5 mg PO BID PRN muscle spasm #7 01/16/24 tabs oxycodone 5 mg tablet 5 mg PO Q6H PRN pain #10 tabs 01/16/24 hydrocodone 5 mg-acetaminophen 325 1 tab PO Q6H PRN pain #4 tabs 02/19/24 mg tablet lorazepam 0.5 mg tablet (Ativan) 0.5 mg PO BID PRN alcohol 02/19/24 withdrawal #5 tabs Allergies Allergy/AdvReac Type Severity Reaction Status Date / Time No Known Drug Allergies Allergy Verified 01/16/24 12:00 Review of Systems Review of Systems ROS Unobtainable: All systems reviewed & are unremarkable except as noted in HPI and below Patient History Medical History Diabetes Alcoholism Post traumatic stress disorder (PTSD) Bipolar affective disorder, current episode mild Social History household members: family Smoking Status: Current every day smoker Smoking Status: Current every day smoker tobacco type: cigarettes alcohol intake frequency: 0-2 drinks per day Alcohol type: beer, wine, hard liquor and other Substance Use Type: does not use Exam Narrative Exam Narrative: GEN: well nourished, male, alert and oriented x 3, patient appears to be in mild distress. HEENT: Atraumatic, pupils are equal round reactive to light, extraocular movements are intact, nares are clear, there is no conjunctival pallor. Throat is clear without any exudates, erythema, tonsillar enlargement or uvular deviation HEART: Tachycardic but regular rate and rhythm without murmur, clicks, rubs. LUNGS:Lungs clear to auscultation, no wheezes, rales, crackles, chest moves symmetrically ABD:bowel sounds normal, soft, non-tender, no guarding, rebound, rigidity, no masses noted, no hepatosplenomegaly :No CVA tenderness MSCL: Non-tender, no muscle atrophy, muscles strength 5/5 upper and lower extremities, full range of motion, normal gait NEURO:CN 2-12 intact, sensation normal, tremor. PSYCH: Suicidal ideation, no homicidal ideation, no hallucinations currently. Initial Vital Signs Initial Vital Signs: Vital Signs Pulse Rate 118 H 02/19/24 08:34 Pulse Oximetry 98 02/19/24 08:34 Course Orders Ordered: ED Orders 02/19/24 12:39 COVID19 -Nasal RAPID Stat Discontinued Medications Hydrocodone Bitart/Acetaminophen (Hydrocodone/Acet 5/325 Tablet) 2 tab PO NOW ONE Stop: 02/19/24 12:51 Last Admin: 02/19/24 13:02 Dose: 2 tab Documented By: YUMI Lactated Ringer's (Lactated Ringers) 1,000 mls @ 1,000 mls/hr IV BOLUS ONE Stop: 02/19/24 09:40 Last Infusion: 02/19/24 09:53 Dose: Infused Documented By: Admin: 02/19/24 09:25 Dose: 1,000 mls/hr Documented By: YUMI Thiamine HCl 100 mg/ Sodium (Chloride) 101 mls @ 404 mls/hr IV NOW ONE Stop: 02/19/24 08:42 Last Infusion: 02/19/24 09:53 Dose: Infused Documented By: Admin: 02/19/24 09:26 Dose: 404 mls/hr Documented By: YUMI Ketorolac Tromethamine (Ketorolac 30 Mg/Ml Vial) 15 mg IV NOW ONE Stop: 02/19/24 08:44 Last Admin: 02/19/24 09:27 Dose: 15 mg Documented By: YUMI Lorazepam (Lorazepam 0.5 Mg Tablet) 1 mg PO NOW ONE Stop: 02/19/24 12:23 Last Admin: 02/19/24 12:26 Dose: 1 mg Documented By: YUMI Lorazepam (Lorazepam 0.5 Mg Tablet) 0.5 mg PO NOW ONE Stop: 02/19/24 18:32 Last Admin: 02/19/24 18:35 Dose: 0.5 mg Documented By: YUMI Nicotine (Nicotine 21 Mg Patch) 21 mg TOP NOW ONE Stop: 02/19/24 12:29 Last Admin: 02/19/24 12:40 Dose: 21 mg Documented By: YUMI Phenobarbital (Phenobarbital 65 Mg/Ml Vial) 260 mg IV NOW ONE Stop: 02/19/24 08:42 Last Admin: 02/19/24 09:27 Dose: 260 mg Documented By: YUMI Vital Signs Vital signs: Vital Signs - 8 hr 02/19/24 11:30 02/19/24 11:30 02/19/24 12:00 Pulse Rate 84 Blood Pressure 128/86 123/92 H Pulse Oximetry 97 02/19/24 12:00 02/19/24 12:30 02/19/24 13:00 Pulse Rate 93 H 94 H Blood Pressure 162/99 H Pulse Oximetry 98 97 02/19/24 13:00 02/19/24 13:30 02/19/24 13:31 Pulse Rate 93 H 92 H Blood Pressure 153/75 H Pulse Oximetry 97 97 02/19/24 13:31 02/19/24 14:00 02/19/24 14:00 Pulse Rate 92 H 97 H Blood Pressure 153/104 H Pulse Oximetry 98 96 02/19/24 14:26 02/19/24 14:26 02/19/24 14:30 Pulse Rate 104 H Blood Pressure 140/94 H 136/94 H Pulse Oximetry 97 02/19/24 14:30 02/19/24 15:00 02/19/24 15:00 Pulse Rate 104 H 98 H Blood Pressure 133/90 Pulse Oximetry 95 95 02/19/24 15:30 02/19/24 16:00 02/19/24 16:00 Pulse Rate 107 H 99 H Blood Pressure 134/85 Pulse Oximetry 97 97 Medical Decision Making Lab Data 02/19/24 08:49 02/19/24 08:49 Labs: Lab Results 02/19/24 02/19/24 02/19/24 Range/Units 08:49 10:00 10:00 WBC 7.5 (4.5-11.0) X10^3/uL RBC 5.06 (4.5-5.9) X10^6/uL Hgb 15.3 (13.5-17.5) g/dL Hct 45.0 (41-53) % MCV 88.8 (80-100) fL MCH 30.2 (26-34) PG MCHC 34.0 (30-36) % RDW 13.6 (11.6-14.8) % Plt Count 275 (150-400) X10^3/uL Neut % (Auto) 55.9 (50-75) % Lymph % (Auto) 30.8 (25-40) % [place] % (Auto) 9.2 (3-14) % Eos % (Auto) 3.2 (2-4) % Baso % (Auto) 0.9 (0-2) % Neut # (Auto) 4200 (6615-8893) /uL Lymph # (Auto) 2300 (9199-6938) /uL [place] # (Auto) 700 (0-900) /uL Eos # (Auto) 200 (0-450) /uL Baso # (Auto) 100 (0-100) /uL Sodium 134 L (137-145) mmol/L Potassium 4.4 (3.4-5.1) mmol/L Chloride 101 (98-107) mmol/L Carbon Dioxide 25 (22-32) mmol/L BUN 7 L (9-20) mg/dL Creatinine 0.74 (0.66-1.25) mg/dL Estimated GFR > 60 (>60) mL/min BUN/Creatinine Ratio 9.5 (6-22) Glucose 313 H (70-100) mg/dL Calcium 9.1 (8.4-10.2) mg/dL Total Bilirubin 0.9 (0.2-1.3) mg/dL AST 20 (17-59) IU/L ALT 15 (<50) IU/L Alkaline Phosphatase 74 (38-126) U/L Total Protein 6.8 (6.3-8.2) g/dL Albumin 4.1 (3.5-5.0) g/dL Globulin 2.7 (1.7-4.1) g/dL Albumin/Globulin Ratio 1.5 (1.0-2.8) TSH 1.97 (0.47-4.68) uIU/mL Urine Color Yellow Urine Appearance Clear Urine pH 7.0 Normal (4.5-8.0) Ur Specific [place] <=1.005 (1.000-1.035) Urine Protein Negative (Negative) Urine Glucose (UA) 3+ H (Negative) g/dL Urine Ketones Negative (NEGATIVE) Urine Occult Blood Negative (Negative) Urine Nitrate Negative (Negative) Urine Bilirubin Negative (NEGATIVE) Urine Urobilinogen 0.2 (0.2) E.U./dL Ur Leukocyte Esterase Negative (NEGATIVE) Urine RBC 0-1/hpf (0-5/HPF) Urine WBC 0-1/hpf (0-5/HPF) Ur Squamous Epith Cells 0-1 /hpf (0-5/HPF) Urine Bacteria Occasional (0-1) (None) Ur Culture Indicated? Cult not indicated Vol Urine Centrifuged 10ml (spun) Salicylates < 1.0 (<20) mg/dL U Opiates 300ng/mL cut Negative (Negative) Ur Oxycodone Screen Negative (Negative) Urine Methadone Screen Negative (Negative) Acetaminophen < 10 (10-30) ug/mL Ur Barbiturates Screen Negative (Negative) U Tricyclic Antidepress Negative (Negative) Ur Phencyclidine Scrn Negative (Negative) Ur Amphetamines Screen Negative (Negative) U Methamphetamines Scrn Negative (Negative) Ur MDMA Scrn (Ecstasy) Negative (Negative) U Benzodiazepines Scrn Negative (Negative) Urine Cocaine Screen Negative (Negative) U Marijuana (THC) Screen Negative (Negative) Urine Specific [place] Normal (Normal) Ethyl Alcohol < 10 ( - 10) mg/dL Ketones < 0.20 (<0.27) mmol/L Ur Creatinine Normal (Normal) SARS-CoV-2 (PCR) (Negative) 02/19/24 Range/Units 12:39 WBC (4.5-11.0) X10^3/uL RBC (4.5-5.9) X10^6/uL Hgb (13.5-17.5) g/dL Hct (41-53) % MCV (80-100) fL MCH (26-34) PG MCHC (30-36) % RDW (11.6-14.8) % Plt Count (150-400) X10^3/uL Neut % (Auto) (50-75) % Lymph % (Auto) (25-40) % [place] % (Auto) (3-14) % Eos % (Auto) (2-4) % Baso % (Auto) (0-2) % Neut # (Auto) (4606-1691) /uL Lymph # (Auto) (6803-4280) /uL [place] # (Auto) (0-900) /uL Eos # (Auto) (0-450) /uL Baso # (Auto) (0-100) /uL Sodium (137-145) mmol/L Potassium (3.4-5.1) mmol/L Chloride (98-107) mmol/L Carbon Dioxide (22-32) mmol/L BUN (9-20) mg/dL Creatinine (0.66-1.25) mg/dL Estimated GFR (>60) mL/min BUN/Creatinine Ratio (6-22) Glucose (70-100) mg/dL Calcium (8.4-10.2) mg/dL Total Bilirubin (0.2-1.3) mg/dL AST (17-59) IU/L ALT (<50) IU/L Alkaline Phosphatase (38-126) U/L Total Protein (6.3-8.2) g/dL Albumin (3.5-5.0) g/dL Globulin (1.7-4.1) g/dL Albumin/Globulin Ratio (1.0-2.8) TSH (0.47-4.68) uIU/mL Urine Color Urine Appearance Urine pH (4.5-8.0) Ur Specific [place] (1.000-1.035) Urine Protein (Negative) Urine Glucose (UA) (Negative) g/dL Urine Ketones (NEGATIVE) Urine Occult Blood (Negative) Urine Nitrate (Negative) Urine Bilirubin (NEGATIVE) Urine Urobilinogen (0.2) E.U./dL Ur Leukocyte Esterase (NEGATIVE) Urine RBC (0-5/HPF) Urine WBC (0-5/HPF) Ur Squamous Epith Cells (0-5/HPF) Urine Bacteria (None) Ur Culture Indicated? Vol Urine Centrifuged Salicylates (<20) mg/dL U Opiates 300ng/mL cut (Negative) Ur Oxycodone Screen (Negative) Urine Methadone Screen (Negative) Acetaminophen (10-30) ug/mL Ur Barbiturates Screen (Negative) U Tricyclic Antidepress (Negative) Ur Phencyclidine Scrn (Negative) Ur Amphetamines Screen (Negative) U Methamphetamines Scrn (Negative) Ur MDMA Scrn (Ecstasy) (Negative) U Benzodiazepines Scrn (Negative) Urine Cocaine Screen (Negative) U Marijuana (THC) Screen (Negative) Urine Specific [place] (Normal) Ethyl Alcohol ( - 10) mg/dL Ketones (<0.27) mmol/L Ur Creatinine (Normal) SARS-CoV-2 (PCR) Negative (Negative) Point of Care Testing Glucose POC 269 Urine Dip Bedside Urine Glucose 500 mg/dl Bedside Urine Bilirubin - Negative Bedside Urine Ketone - Negative Urine Specific [place] 1.010 Bedside Urine Occult Blood - Negative Bedside Urine pH 6.5 Bedside Urine Protein - Negative Bedside Urine Urobilinogen - Negative Bedside Urine Nitrite - Negative Bedside Urine Leukocytes - Negative Esterase Point of care testing: Point of Care Testing Glucose POC 269 Urine Dip Bedside Urine Glucose 500 mg/dl Bedside Urine Bilirubin - Negative Bedside Urine Ketone - Negative Urine Specific [place] 1.010 Bedside Urine Occult Blood - Negative Bedside Urine pH 6.5 Bedside Urine Protein - Negative Bedside Urine Urobilinogen - Negative Bedside Urine Nitrite - Negative Bedside Urine Leukocytes - Negative Esterase ECG Data Attestation: I personally reviewed and interpreted this ECG as follows: Interpretation: Normal sinus rhythm, rate of 98 HI 186 QRS 80 QTC 421, no acute ST changes patient has prior from 01/16/2024 which appears similar today. MDM Narrative Medical decision making narrative: 43-year-old male history of chronic alcohol use has been sober intermittently, has been drinking heavily for the past 13 months has also been taking [place] recently for left cervical radiculopathy. No red flag symptoms necessitating emergent MRI today but is quite painful to the patient. Patient is also an insulin-dependent diabetic and his monitor was reading 40, EMS got to 70 for their monitor, reading here his monitor set 80 we got a 300 range. Patient does note he does not calibrate it regularly. Patient has some tremor, tachycardia, no hallucinations currently but has had them in the past. Patient is seeking assistance with his alcohol withdrawal. Labs hemoglobin white count is 7.5 hemoglobin is 15.3 platelets of 275. EKG sinus rhythm rate of 98 appears similar to priors. VBG shows a pH of 7.46, pCO2 of 35 PaO2 of 66 with a bicarb of 25. Urine drug screen is negative. UA shows 3+ glucose, no ketones, 1 red cell 1 white cell 1 squamous epithelial. Cultures not indicated. Patient received fluids, thiamine, phenobarbital and Toradol. On re-evaluation patient is feeling improved. His alcohol withdrawal does not appear to require inpatient hospital admission. He has some hyperglycemia but no signs of DKA, patient's monitor was not working properly so we did have him bolus paced on our numbers his glucose is trending down to 275 followed by 219 shortly thereafter. Patient is medically cleared. Repeat glucose is 116 @ 1340. Discussed with patient he is interested in inpatient treatment and I feel he would benefit from this he has had it before he is agreeable to go to another facility he is also agreeable if they are uncomfortable with his pump to have it removed and use injectable insulin. Met with our PRODUCT DEVELOPMENT MANAGER, Leni. Patient has a bed at [facility] but not [facility] tomorrow. He was accepted at [facility] initially but refused because they do not allow smoking. [facility] will and may allow for him to use his pump. Patient is discharged home into the care of his parents was given a few tablets of [place] and Ativan as patient has quite a bit of neck pain. He is to call 1st thing in the morning as he was accepted but has to call to confirm has been Discharge Plan Departure Patient Disposition: Home Clinical Impression: Alcohol abuse with withdrawal, Hyperglycemia Activity Restrictions/Additional Instructions: Call [facility] in [place] first thing in the morning, you have been improved for a bed but they do not have any openings until tomorrow. I hope you continue to feel improved. There is a prescription for [place] as well as a few tablets of Ativan please take these as prescribed. This medication can make you sleepy do not drive, perform hazardous activities or make any major decisions while taking it. This medication will make you constipated please take a stool softener once to twice daily until stools are soft and regular. Prescription sent to [facility] in [place]. Please return for new or worsening symptoms you are changes to mentation, tremors, hallucinations, seizures, difficulty breathing or other new or concerning changes. Prescriptions: New hydrocodone-acetaminophen 5-325 mg tablet 1 tab PO Q6H PRN (Reason: pain) Qty: 4 0RF lorazepam [Ativan] 0.5 mg tablet 0.5 mg PO BID PRN (Reason: alcohol withdrawal) Qty: 5 0RF No Action Humalog U-100 Insulin 100 unit/mL cartridge 1 sliding scale dose SUBCUT USEASDIRECTD duloxetine 20 mg capsule,delayed release(DR/EC) 20 mg PO DAILY Qty: 14 0RF hydroxyzine HCl 25 mg tablet 25 mg PO 4XD (DME) Omnipod 5 G6 Intro Kit (Gen 5) Cartridge See Rx Instructions .ROUTE ONCE Qty: 1 Rx Instructions: As directed (DME) Omnipod 5 G6 Pods (Gen 5) Cartridge See Rx Instructions .ROUTE Q3D Qty: 5 Rx Instructions: As directed lamotrigine 25 mg tablet, chewable dispersible 0 mg PO cyclobenzaprine 5 mg tablet 5 mg PO TID PRN (Reason: muscle spasm) Qty: 20 0RF insulin glargine [Lantus Solostar U-100 Insulin] 100 unit/mL (3 mL) insulin pen 25 unit SUBCUT DAILY diazepam [Valium] 5 mg tablet 5 mg PO BID PRN (Reason: muscle spasm) Qty: 7 0RF oxycodone 5 mg tablet 5 mg PO Q6H PRN (Reason: pain) Qty: 10 0RF Referrals: Radha Angela ARNP, RN [Primary Care Provider] - Stand Alone Forms: Patient Portal/API
[2024-02-19 09:02] LABS: Add Manual Diff / Slide Review NO; Basophils Absolute Auto 100 /uL (0-100); Basophils Percent Auto 0.9 % (0-2); Eosinophils Absolute Auto 200 /uL (0-450); Eosinophils Percent Auto 3.2 % (2-4); Hemoglobin 15.3 g/dL (13.5-17.5); Lymphocytes Absolute Auto 2300 /uL (1100-4500); Lymphocytes Percent Auto 30.8 % (25-40); Mean Corpuscular Hemoglobin 30.2 PG (26-34); Mean Corpuscular Volume 88.8 fL (80-100); Monocytes Absolute Auto 700 /uL (0-900); Monocytes Percent Auto 9.2 % (3-14); Neutrophils Absolute Auto 4200 /uL (1500-7000); Neutrophils Percent Auto 55.9 % (50-75); Platelet Count 275 X10^3/uL (150-400); Red Blood Cell Count 5.06 X10^6/uL (4.5-5.9); Red Cell Distribution Width 13.6 % (11.6-14.8); White Blood Cell Count 7.5 X10^3/uL (4.5-11.0)
--- NOTE | 2024-02-19 09:09 | EKG_ITS ---
[address] [address] Test Date: 2024-02-19 Pat Name: Mao Ybarra Department: [facility] Room: Gender: Male Blockman: ETHEL : 1980 Requested By: Order Number: [id number] Reading MD: Priyank Sahu Measurements Intervals [place] Rate: 98 P: 67 NM: 186 QRS: 1 QRSD: 80 T: 38 QT: 330 QTc: 421 Interpretive Statements Normal sinus rhythm Septal infarct , age undetermined Electronically Signed On 02-19-2024 19:52:14 PDT by Priyank Sahu
[2024-02-19 09:20] LABS: Acetaminophen < 10 ug/mL (10-30); Alanine Aminotransferase 15 IU/L (<50); Albumin 4.1 g/dL (3.5-5.0); Albumin Globulin Ratio 1.5 (1.0-2.8); Alkaline Phosphatase 74 U/L (38-126); Aspartate Aminotransferase 20 IU/L (17-59); BUN Creatinine Ratio 9.5 (6-22); Bilirubin Total 0.9 mg/dL (0.2-1.3); Blood Urea Nitrogen 7 mg/dL (9-20); Calcium 9.1 mg/dL (8.4-10.2); Carbon Dioxide 25 mmol/L (22-32); Chloride 101 mmol/L (98-107); Estimated Glomerular Filt Rate > 60 mL/min (>60); Ethanol (ETOH) < 10 mg/dL; Globulin 2.7 g/dL (1.7-4.1); Glucose 313 mg/dL (70-100); HEMOLYSIS < 15 (0-50); Potassium 4.4 mmol/L (3.4-5.1); Sodium 134 mmol/L (137-145); Total Protein 6.8 g/dL (6.3-8.2)
[2024-02-19] MEDS: LACTATED RINGERS 1,000 ML 1000 ML IV (09:25)
[2024-02-19] MEDS: THIAMINE 100 MG in SODIUM CHLORIDE 0.9% 100 ML 404 MG IV (09:26)
[2024-02-19 09:27] LABS: Ketones (Beta-Hydroxybutyrate) < 0.20 mmol/L (<0.27); Salicylate < 1.0 mg/dL (<20)
[2024-02-19] MEDS: KETOROLAC 30 MG/ML VIAL 15 MG IV (09:27)
[2024-02-19] MEDS: PHENobarbital 65 MG/ML VIAL 260 MG IV (09:27)
[2024-02-19 09:48] LABS: TSH w/ Reflex to FT4 1.97 uIU/mL (0.47-4.68)
[2024-02-19 10:14] LABS: Appearance Urine UA CLEAR; Bilirubin Urine UA NEGATIVE (NEGATIVE); Color Urine UA YELLOW; Glucose Urine UA 3+ g/dL (Negative); Ketones Urine UA NEGATIVE (NEGATIVE); Leukocyte Esterase Urine UA NEGATIVE (NEGATIVE); Nitrite Urine UA NEGATIVE (Negative); Occult Blood Urine UA NEGATIVE (Negative); Protein Urine UA NEGATIVE (Negative); Specific Gravity Urine UA <=1.005 (1.000-1.035); Urobilinogen Urine UA 0.2 E.U./dL (0.2)
[2024-02-19 10:18] LABS: UR Morphine/Opiate cutoff 300 Negative (Negative); Ur Creatinine Normal (Normal); Ur Specific Gravity Normal (Normal); Urine Amphetamines Negative (Negative); Urine Barbiturates Negative (Negative); Urine Benzodiazepines Negative (Negative); Urine Cocaine Negative (Negative); Urine MDMA Negative (Negative); Urine Methadone Negative (Negative); Urine Methamphetamines Negative (Negative); Urine Oxycodone Negative (Negative); Urine Phencyclidine Negative (Negative); Urine Tetrahydrocannabinol Negative (Negative); Urine Tricyclic Antidepressant Negative (Negative); Urine pH Normal (Normal)
[2024-02-19 10:20] LABS: Bacteria Urine Occasional (0-1); RBC Urine 0-1/HPF (0-5/HPF); Squamous Epithelial Cell Urine 0-1 /HPF (0-5/HPF); Urine Volume 10mL (spun); WBC Urine 0-1/HPF (0-5/HPF)
[2024-02-19 10:21] LABS: Culture Indicated Urine Cult Not Indicated
--- NOTE | 2024-02-19 10:57 | PC.NURSE ---
Spoke with Dr Rajput and arnav for 1.6 bolus from insulin pump.
[2024-02-19] MEDS: LORazepam 0.5 MG TABLET 1 MG PO (12:26)
[2024-02-19] MEDS: NICOTINE 21 MG PATCH TOP (12:40)
--- NOTE | 2024-02-19 12:51 | CM.SWNOTE ---
ED OUTPATIENT INTERVIEWING CLERK Assessment OUTPATIENT INTERVIEWING CLERK - Rum Processing Operator Assessment OUTPATIENT INTERVIEWING CLERK/Rum Processing Operator Assessment Time Spent with Patient Start date 02/19/24 Visit Start Time 12:00 End date 02/19/24 Visit End Time 12:20 Total time Care Management spent on 20 minutes patient visit-in minutes Mental Health Screening Include Onset, Duration, Intensity Presenting Problem Patient presents to the ED due to concern for ETOH withdrawals and SI. Patient endorses he has been drinking about a 1/5 of hard alcohol to a liter a day. Patient states he has been using airplane bottles to hide his drinking. Patient states his last drink was last evening. Patient endorses passive thoughts of plans but no current ways or means to act on plans. Patient endorses he has been struggling with his mental health for several years. Precipitating Event(s) Patient states he relapsed on alcohol about 13 months ago and since then he stopped taking his Lamotragine medication. Patient states he has been experiencing chronic back pain and has been medicating with alcohol is instead of relying on his prescribed pain medication. Patient Strengths Patient is polite, presents as insightful and is seeking help, patient has good family supports as well. Current Behavioral Health Provider(s) Patient denies any current Include Facility, Provider, Ph. # providers, patient states he was seeing a provider at [facility] and a private practice therapist in the past. Patient states he is open to finding a new provider. Psych. Hx Mental Health and Chemical Patient has hx of Bipolar, Dependency PTSD, Depression, Anxiety, SI, suicide attempt and ETOH use disorder. Patient states he has been drinking daily for the last 13 months, patient endorses he smoke cigarettes regularly as well. Patient endorses hx of Marijuana use but denies any recent use, patient denies any other substance use. Family Hx of Behavioral Abuse Patient states his father is a recovering alcoholic of 10 years. Psychiatric Hospitalizations (date(s)/ Patient was at voluntarily location) [facility] in July 2020 and was a [facility] in July 2020. Psychosocial information & Support Patient is 43 y/o male who Systems resides with his parents in [place], [place]. Patient has supports from his parents, patient states his brother is a substance use counselor as well. School/Work Unemployed Substance Abuse Screening Include Onset, Duration, Intensity Rehab Facilities? ((Date(s), Location(s) Patient states he has been to ) detox at [facility] in the past, patient states he was been inpatient for [facility]. Patient endorses interest in [facility] rehab. History of Withdrawal? Seizures? Patient endorses chills, anxiety, shakiness and states he was nauseous earlier. Patient denies hx of seizures. Longest Period of Sobriety Patient states he was sober for 7 years when he was in his 20s. Legal Concerns Legal Matters - Outstanding Issues None reported Mental Status Orientation (Person/Place/Time) A/Ox4 Stated Mood I've been better Affect (Congruent with Mood?) euthymic, full range, congruent with mood Thought Content - Specify/Describe Patient denies hx of paranoia, Obsessions, Delusions, Hallucinations visual or auditory hallucinations. Patient states he has experienced visual hallucinations of shadows and spots in the past when he was detoxing. Thought Processes (Hwpskol-Waqumjty-Mobt coherent, logical, goal Vrbdneiq-Ugtjyisn-Egvopbahbq- directed Plhxugfrnlwzjl-Hywemom-Oxizsssnbjkp- Thought Blocking) Speech (Yxtoig-Fxhu-Olvadxd-Rapid-Soft- normal Loud-Pressured) Motor (Kjceqf-Cbolwvxdd-Okql-Other) normal Insight (Eryv-Ldht-Xpwd/Limited) good Judgement (Tpch-Otmi-Trff/Limited) good Impulse Control (Adequate-Impaired) adequate Memory (Wtbmhrjjv-Swwmxb-Ecoehk, intact, not formally assessed Impaired-Intact) Concentration (Intact-Impaired) intact Attention (Intact-Impaired) appropriate Behavior (Appropriate-Inappropriate) Appropriate Additional Comment Patient presents as calm, cooperative and communicative. Risk Assessment Suicidal Ideation (Plan) Yes Homicidal Ideation (Plan) No Comment Patient endorses hx of SI this morning, patient states it has subsided today because he has gotten some sleep and his pain was addressed in the ED. Patient endorses thoughts of methods to kill himself, patient states he could never jump off of a bridge because his fear of heights, but he thinks about jumping when he is by a bridge. Patient endorses thoughts of using a gun but denies access and does not know how to use a gun. Patient states he believes using a gun would be the easiest way to kill himself and states that there would be less second guessing. Patient endorses hx of passive thoughts of using his insulin pump but he would be worried about the symptoms and moments of regret. Patient endorses hx of overdose on Clonapine 9 years ago when he was having a nervous break down Per EMR, patient had hx of plans to jump off a bridge in 2020 but his father guided him to the ED and patient sought treatment. Intervention Intervention OUTPATIENT INTERVIEWING CLERK enters room to meet with patient. Patient endorses his struggle with ETOH use after relapse 13 months ago and ongoing passive SI with detailed thoughts of plans. Patient endorses he is voluntary for detox treatment and seeking help for his MH. OUTPATIENT INTERVIEWING CLERK discusses dual dx treatment and patient indicates agreement and understanding. It is the opinion of this OUTPATIENT INTERVIEWING CLERK that patient would be appropriate for and would benefit from voluntary inpatient dual dx treatment for crisis stabilization, safety and medication management. OUTPATIENT INTERVIEWING CLERK to review this with ED provider Dr. Rajput. Plan RA Plan OUTPATIENT INTERVIEWING CLERK to seek dual dx inpatient placement upon medical clearance. Leni Santizo, BENCH GRINDER
[2024-02-19] MEDS: HYDROCODONE/ACET 5/325 TABLET 2 TAB PO (13:02)
[2024-02-19 13:17] LABS: COVID19 -Nasal RAPID Negative (Negative)
--- NOTE | 2024-02-19 14:14 | PC.NURSE ---
Pt a&ox4. Pt given tray from dietary and sitting up in bed to eat. Pt ambulates to bathroom independently with steady gait and performs ADLs independently. CIWA 1. States shoulder pain has resolved after medication. Denies SI/HI at this time.
--- NOTE | 2024-02-19 15:45 | PC.NURSE ---
BG 269. Marianela Rajput notified and ok'd pt to bolus 1.5 on insulin pump
--- NOTE | 2024-02-19 18:06 | CM.SWNOTE ---
Addendum entered by Leni Santizo 02/19/24 18:57: [facility] declines patient and reports that [facility] will be more appropriate for dual dx detox with MH treatment. [facility] reviews this with patient and patient's parents via phone. Patient to d/c to home upon medical clearance, patient to call [facility] tomorrow morning to secure approved bed placement for detox. Patient contracts for safety for d/c home and detox tomorrow. JARED Morgan Original Note: ED [facility] Note [facility] calls [facility], as patient initially stated it was his preference to go to [facility], it is reported that they have beds and can review patient. [facility] faxes clinicals for review. [facility] speaks with RN regarding patient's insulin pump and patient's blood sugar. It is reported that patient has been accepted if he has his insulin pump removed. Patient declines acceptance because they do not allow smoking and he has preference to have a private room. [facility] informs [facility]. [facility] calls [facility], patient does phone intake screening, [facility] faxes referral for review. It is reported that they may not have beds until tomorrow and they are still reviewing if the can provide both MH and [facility] services for patient for dual dx bed. [facility] It is reported that patient has been accepted for bed for tomorrow morning, and patient will need to call for intake arrival time, but patient will not be able to have hydrocodone for pain. [facility] calls [facility], patient does intake screen call, [facility] faxes clinicals, RN does nurse to nurse report. [facility] continues to review patient, patient calls to speak with facility and it is reported that they are reviewing patient and patient is at the top of the list. Plan: patient to d/c to detox facility for dual dx treatment. [facility] vs. [facility]. JARED Morgan
[2024-02-19] MEDS: LORazepam 0.5 MG TABLET PO (18:35)
--- NOTE | 2024-02-19 18:46 | PC.NURSE ---
Pt accepted at [facility] for tomorrow. Discussed with patient that he must call [facility] tomorrow to confirm bed/intake time. Pt verbalized that he understands he must call tomorrow morning. Pt expresses concerns regarding shoulder pain and controlling his pain without opiate pain medications while at detox facility. RN & CERTIFIED NOVELL ENGINEER explained to pt that opiate pain medication is not dispensed at [facility] and that other medications are given to help with pain management. Pt denies SI/HI at this time. Performs all ADLs independently and ambulates with steady gait.
--- NOTE | 2024-02-19 18:59 | PC.NURSE ---
Patient up to restroom, after exiting restroom pungent odor of cigarette smoke. Asked patient if he smoked in restroom. NO I did not I know better than to smoke in a hospital Reminded patient that is not allowed in hospital.
== END 2024-02-19 19:14 | disposition home or self-care (01) ==
PROVIDERS: Emergency Provider Emergency Medicine; PCP Nurse Practitioner Family
DX: F10.239 Alcohol dependence with withdrawal, unspecified (principal); R25.1 Tremor, unspecified; R00.0 Tachycardia, unspecified; E11.65 Type 2 diabetes mellitus with hyperglycemia; Z79.899 Other long term (current) drug therapy; Z11.52 Encounter for screening for COVID-19; Z79.4 Long term (current) use of insulin; F41.9 Anxiety disorder, unspecified; R11.0 Nausea; M54.2 Cervicalgia
CPT/HCPCS: 80053; 80305; 80320; 80329; 81001; 81003; 82009; 82962; 84443; 85025; 87635; 93005; 96365; 96375; 99284; G0480; J1885; J2560

== ENCOUNTER → 2024-02-28 15:55 | Outpatient (CLI) | payer MEDICARE, MEDICAID, SELFPAY ==
[2023-09-20 13:15] VITALS: BMI 19.1
--- NOTE | 2024-02-28 15:58 | DI.MRI.S_ITS ---
PROCEDURE: MR CERVICAL SPINE WO CON INDICATIONS: EVAL NEURO STRUCTURES TECHNIQUE: Noncontrast sagittal T1 spin echo and T2 fast spin echo, sagittal STIR, foraminal oblique sagittal T2 fast spin echo, and axial gradient echo or T2 fast spin echo through the cervical spine. COMPARISON: [facility], CT, CT CERVICAL SPINE WO CON, 01/16/2024, 12:39. FINDINGS: Image quality: Motion is present limiting evaluation. Alignment and Curvature: There is normal bony alignment. Bone Marrow: Marrow demonstrates normal overall signal. Spinal Cord: Visualized spinal cord has normal size and signal. No cerebellar tonsillar herniation. Paraspinous Soft Tissues: No paravertebral masses. Prevertebral soft tissues are normal in thickness. C2-C3: Minimal disc bulge without spinal stenosis or foraminal narrowing. C3-C4: Minimal disc bulge without spinal stenosis or foraminal narrowing. C4-C5: Disc bulge with small posterior central protrusion. There is mild indentation of the anterior cord. Foramina are poorly visualized secondary to motion. C5-C6: Disc bulge with left posterior paracentral protrusion with overall moderate spinal stenosis. There is likely mild to moderate bilateral foraminal narrowing, right greater than left with uncovertebral hypertrophy. C6-C7: Disc bulge with left posterior paracentral protrusion/extrusion. There is significant compromise the left lateral recess. Moderate right and moderate proximal left foraminal narrowing. C7-T1: No disc bulge, spinal stenosis or foraminal narrowing. IMPRESSION: Multilevel disc bulges, protrusions/extrusions most severe at C5-6 and C6-7. Dictated by: Agatha Malik M.D. on 03/01/2024 at 15:57 Approved by: Agatha Malik M.D. on 03/01/2024 at 16:08
== END ==
LOC: MRI 15:57
PROVIDERS: PCP Nurse Practitioner Family; Referring Provider Orthopaedic Surgery Orthopaedic Surgery of the Spine; Visit Provider Orthopaedic Surgery Orthopaedic Surgery of the Spine
DX: M50.321 Other cervical disc degeneration at C4-C5 level (principal); M50.221 Other cervical disc displacement at C4-C5 level
CPT/HCPCS: 72141

== ENCOUNTER 2024-07-07 14:53 | Emergency (ER) | payer MEDICARE, MEDICAID, SELFPAY ==
[2023-09-20 13:15] VITALS: BMI 19.1
[2024-07-07] VITALS (16 sets, daily range): BP systolic 108–177; BP diastolic 82–99; PULSE 77–136; RESP 18–29; TEMP 36.6; O2SAT 93–100; BMI 21.1
--- NOTE | 2024-07-07 15:16 | EKG_ITS ---
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
[2024-07-07] MEDS: SODIUM CHLORIDE 0.9% 1,000 ML 1000 ML IV ×2 (16:14→17:04)
[2024-07-07 16:18] LABS: Base Excess VBG -1.1 mmol/L (0-4); HCO3 VBG 23 mmol/L (24-28); Oxygen Saturation VBG 82 % (70-75); PCO2 VBG 36.6 mmHg (45-50); PO2 VBG 45 mmHg (35-45); Total CO2 VBG 22 mmol/L (24-29); pH VBG 7.41 (7.33-7.43)
[2024-07-07 16:40] LABS: Add Manual Diff / Slide Review NO; Basophils Absolute Auto 0 /uL (0-100); Basophils Percent Auto 0.6 % (0-2); Eosinophils Absolute Auto 200 /uL (0-450); Eosinophils Percent Auto 2.3 % (2-4); Hematocrit 46.9 % (41-53); Hemoglobin 15.7 g/dL (13.5-17.5); Lymphocytes Absolute Auto 2200 /uL (1100-4500); Lymphocytes Percent Auto 31.1 % (25-40); Mean Corpuscular HGB Conc 33.6 % (30-36); Mean Corpuscular Hemoglobin 28.8 PG (26-34); Mean Corpuscular Volume 85.8 fL (80-100); Monocytes Absolute Auto 600 /uL (0-900); Monocytes Percent Auto 8.3 % (3-14); Neutrophils Absolute Auto 4000 /uL (1500-7000); Neutrophils Percent Auto 57.7 % (50-75); Platelet Count 286 X10^3/uL (150-400); Red Blood Cell Count 5.46 X10^6/uL (4.5-5.9); Red Cell Distribution Width 14.2 % (11.6-14.8)
[2024-07-07 16:42] LABS: Ethanol (ETOH) < 10 mg/dL
[2024-07-07 16:43] LABS: Alanine Aminotransferase 23 IU/L (<50); Albumin 4.7 g/dL (3.5-5.0); Albumin Globulin Ratio 1.6 (1.0-2.8); Alkaline Phosphatase 88 U/L (38-126); Aspartate Aminotransferase 33 IU/L (17-59); BUN Creatinine Ratio 15.8 (6-22); Bilirubin Total 1.4 mg/dL (0.2-1.3); Blood Urea Nitrogen 16 mg/dL (9-20); Calcium 9.4 mg/dL (8.4-10.2); Carbon Dioxide 23 mmol/L (22-32); Chloride 98 mmol/L (98-107); Estimated Glomerular Filt Rate > 60 mL/min (>60); Globulin 2.9 g/dL (1.7-4.1); Glucose 352 mg/dL (70-100); Lipase 39 U/L (23-300); Sodium 132 mmol/L (137-145); Total Protein 7.6 g/dL (6.3-8.2)
[2024-07-07 16:44] LABS: HEMOLYSIS < 15 (0-50)
[2024-07-07] MEDS: LORazepam 2 MG/ML INJ IV (17:05)
--- NOTE | 2024-07-07 17:07 | ED_ITS ---
HPI - General Adult <Ward Sexton MD - Last Filed: 07/07/24 17:10> General Chief complaint: Diabetic Problem Stated complaint: Type 1 Diabetic, Think I'm in DKA Time Seen by Provider: 07/07/24 16:49 Source: patient Mode of arrival: Ambulatory History of Present Illness HPI narrative: 44-year-old type 1 diabetic who has also a binge drinker. He is complaining of 2 days of fatigue and brain fog he vomited yesterday and last drink was about 20 hours ago. States this he had been drinking for several days a 5th or more a day. Not having any suicidal ideation. Blood sugars have been high at home. Had previously been seen here for similar complaints. No chest pain abdominal pain or fevers Related Data Home Medications Medication Instructions Recorded Confirmed insulin glargine 100 unit/mL (3 25 unit SUBCUT DAILY 02/24/21 03/04/24 mL) subcutaneous pen (Lantus Solostar U-100 Insulin) hydroxyzine HCl 25 mg tablet 25 mg PO 4XD 01/12/24 03/04/24 insulin pump cart,automated,BT #5 ea 01/12/24 03/04/24 (Omnipod 5 G6 Pods (Gen 5) subcutaneous cartridge) insulin pump cartridge,automated #1 ea 01/12/24 03/04/24 dose,BT with controller subcutaneous (Omnipod 5 G6 Intro Kit (Gen 5) subcutaneous cartridge with controller) buspirone 10 mg tablet 10 mg PO BID 03/04/24 03/04/24 clonidine HCl 0.1 mg tablet 0.1 mg PO DAILY 03/04/24 03/04/24 duloxetine 40 mg capsule,delayed 40 mg PO DAILY 03/04/24 03/04/24 release insulin aspart U-100 100 unit/mL 1 sliding scale dose SUBCUT 03/04/24 03/04/24 subcutaneous solution (Novolog BEDTIME PRN U-100 Insulin aspart) lamotrigine 25 mg tablet 50 mg PO DAILY 03/04/24 03/04/24 trazodone 50 mg tablet 50 mg PO BEDTIME 03/04/24 03/04/24 Previous Rx's Medication Instructions Recorded methylprednisolone 4 mg tablets in See Rx Instructions PO PER PKG DIR 03/04/24 a dose pack (Medrol (Douglas)) radiculopathy #21 ea gabapentin 300 mg capsule 600 mg (2 x 300 mg) PO TID #180 03/19/24 caps Allergies Allergy/AdvReac Type Severity Reaction Status Date / Time No Known Drug Allergies Allergy Verified 03/04/24 11:29 Patient History <Ward Sexton MD - Last Filed: 07/07/24 17:10> Medical History Tobacco abuse HNP (herniated nucleus pulposus), cervical Diabetes Alcoholism Post traumatic stress disorder (PTSD) Bipolar affective disorder, current episode mild Surgical History History of cholecystectomy History of lumbar surgery Family History Father Cancer Mother Heart attack Social History household members: family Smoking Status: Current every day smoker Smoking Status: Current every day smoker tobacco type: cigarettes and vaping alcohol intake frequency: 0-2 drinks per day Alcohol type: beer, wine, hard liquor and other Exam <Ward Sexton MD - Last Filed: 07/07/24 17:10> Initial Vital Signs Initial Vital Signs: Vital Signs Temperature 97.8 F 07/07/24 14:57 Pulse Rate 136 H 07/07/24 14:57 Respiratory Rate 18 07/07/24 14:57 Blood Pressure 177/85 H 07/07/24 14:57 Pulse Oximetry 98 07/07/24 14:57 Oxygen Delivery Method Room Air 07/07/24 14:57 Const Other: Pale appears to be in no distress fully alert and oriented [facility] Other: Normocephalic atraumatic oral mucosa is moist Resp Other: Not tachypneic no respiratory distress lungs are clear Cardio Other: Regular rhythm a rate no murmur rub or gallop tachycardic at triage GI Other: Normal bowel sounds soft and nontender Neuro Other: Alert and oriented without tremor <Priyank Ponce DO - Last Filed: 07/07/24 20:48> Initial Vital Signs Initial Vital Signs: Vital Signs Temperature 97.8 F 07/07/24 14:57 Pulse Rate 136 H 07/07/24 14:57 Respiratory Rate 18 07/07/24 14:57 Blood Pressure 177/85 H 07/07/24 14:57 Pulse Oximetry 98 07/07/24 14:57 Oxygen Delivery Method Room Air 07/07/24 14:57 Course <Ward Sexton MD - Last Filed: 07/07/24 17:10> Orders Ordered: ED Orders 07/07/24 15:05 Consult to [facility] Metal Stamping Machine Operator Stat 07/07/24 15:10 Complete Blood Count AUTO DIFF Stat Comprehensive Metabolic Panel Stat Ethanol (ETOH) Stat Ketones (Beta-Hydroxybutyrate) Stat Lactate (Lactic Acid) Stat Lipase Stat 07/07/24 16:01 EKG-12 Lead Stat 07/07/24 16:02 VBG [Venous Blood Gas] STAT 07/07/24 16:03 Blood Culture Stat 07/07/24 16:14 Venous Blood Gas Routine 07/07/24 [facility] 07/07/24 18:36 Urine Drug Screen, Rapid Stat Ondansetron HCl (Ondansetron 4 Mg/2 Ml Inj) 4 mg IV NOW PRN PRN Reason: Nausea And Vomiting Ondansetron HCl (Ondansetron 4 Mg Odt) 4 mg PO NOW PRN PRN Reason: Nausea And Vomiting Discontinued Medications Sodium Chloride (Normal Saline 0.9%) 1,000 mls @ 1,000 mls/hr IV BOLUS ONE Stop: 07/07/24 17:01 Last Infusion: 07/07/24 17:03 Dose: Infused Documented By: Admin: 07/07/24 16:14 Dose: 1,000 mls/hr Documented By: ROULA Sodium Chloride (Normal Saline 0.9%) 1,000 mls @ 1,000 mls/hr IV BOLUS ONE Stop: 07/07/24 17:49 Last Infusion: 07/07/24 18:10 Dose: Infused Documented By: Admin: 07/07/24 17:04 Dose: 1,000 mls/hr Documented By: ROULA Lorazepam (Lorazepam 2 Mg/Ml Inj) 2 mg IV NOW ONE Stop: 07/07/24 17:01 Last Admin: 07/07/24 17:05 Dose: 2 mg Documented By: ROULA Vital Signs Vital signs: Vital Signs - 8 hr 07/07/24 14:57 07/07/24 15:18 07/07/24 15:30 Temperature 97.8 F Pulse Rate 136 H 114 H Respiratory Rate 18 25 H Blood Pressure 177/85 H 125/89 Pulse Oximetry 98 99 Oxygen Delivery Method Room Air 07/07/24 15:30 07/07/24 16:00 07/07/24 16:00 Temperature Pulse Rate 103 H 97 H Respiratory Rate 21 21 Blood Pressure 108/82 Pulse Oximetry 96 97 Oxygen Delivery Method 07/07/24 16:30 07/07/24 16:30 07/07/24 17:00 Temperature Pulse Rate 90 96 H Respiratory Rate 20 21 Blood Pressure 123/91 H Pulse Oximetry 98 100 Oxygen Delivery Method 07/07/24 17:00 07/07/24 17:30 07/07/24 17:30 Temperature Pulse Rate 90 Respiratory Rate 23 Blood Pressure 132/94 H 143/90 H Pulse Oximetry 99 Oxygen Delivery Method <Priyank Ponce DO - Last Filed: 07/07/24 20:48> Orders Ordered: ED Orders 07/07/24 15:05 [place] to [facility] [place] [facility]amping Machine Operator Stat 07/07/24 15:10 Complete Blood Count AUTO DIFF Stat Comprehensive Metabolic Panel Stat Ethanol (ETOH) Stat Ketones (Beta-Hydroxybutyrate) Stat Lactate (Lactic Acid) Stat Lipase Stat 07/07/24 16:01 EKG-12 Lead Stat 07/07/24 16:02 VBG [Venous Blood Gas] STAT 07/07/24 16:03 Blood Culture Stat 07/07/24 16:14 Venous Blood Gas Routine 07/07/24 17:00 Consult to [facility] Metal Stamping Machine Operator Stat 07/07/24 18:36 Urine Drug Screen, Rapid Stat Ondansetron HCl (Ondansetron 4 Mg/2 Ml Inj) 4 mg IV NOW PRN PRN Reason: Nausea And Vomiting Ondansetron HCl (Ondansetron 4 Mg Odt) 4 mg PO NOW PRN PRN Reason: Nausea And Vomiting Discontinued Medications Sodium Chloride (Normal Saline 0.9%) 1,000 mls @ 1,000 mls/hr IV BOLUS ONE Stop: 07/07/24 17:01 Last Infusion: 07/07/24 17:03 Dose: Infused Documented By: Admin: 07/07/24 16:14 Dose: 1,000 mls/hr Documented By: ROULA Sodium Chloride (Normal Saline 0.9%) 1,000 mls @ 1,000 mls/hr IV BOLUS ONE Stop: 07/07/24 17:49 Last Infusion: 07/07/24 18:10 Dose: Infused Documented By: Admin: 07/07/24 17:04 Dose: 1,000 mls/hr Documented By: ROULA Lorazepam (Lorazepam 2 Mg/Ml Inj) 2 mg IV NOW ONE Stop: 07/07/24 17:01 Last Admin: 07/07/24 17:05 Dose: 2 mg Documented By: ROULA Vital Signs Vital signs: Vital Signs - 8 hr 07/07/24 14:57 07/07/24 15:18 07/07/24 15:30 Temperature 97.8 F Pulse Rate 136 H 114 H Respiratory Rate 18 25 H Blood Pressure 177/85 H 125/89 Pulse Oximetry 98 99 Oxygen Delivery Method Room Air 07/07/24 15:30 07/07/24 16:00 07/07/24 16:00 Temperature Pulse Rate 103 H 97 H Respiratory Rate 21 21 Blood Pressure 108/82 Pulse Oximetry 96 97 Oxygen Delivery Method 07/07/24 16:30 07/07/24 16:30 07/07/24 17:00 Temperature Pulse Rate 90 96 H Respiratory Rate 20 21 Blood Pressure 123/91 H Pulse Oximetry 98 100 Oxygen Delivery Method 07/07/24 17:00 07/07/24 17:30 07/07/24 17:30 Temperature Pulse Rate 90 Respiratory Rate 23 Blood Pressure 132/94 H 143/90 H Pulse Oximetry 99 Oxygen Delivery Method Medical Decision Making <Ward Sexton MD - Last Filed: 07/07/24 17:10> Lab Data Lab results narrative: Not acidotic on venous blood gas, blood sugars over 300. Alcohol nondetected 07/07/24 15:10 07/07/24 15:10 Labs: Lab Results 07/07/24 07/07/24 07/07/24 Range/Units 15:10 16:14 18:36 WBC 7.0 (4.5-11.0) X10^3/uL RBC 5.46 (4.5-5.9) X10^6/uL Hgb 15.7 (13.5-17.5) g/dL Hct 46.9 (41-53) % MCV 85.8 (80-100) fL MCH 28.8 (26-34) PG MCHC 33.6 (30-36) % RDW 14.2 (11.6-14.8) % Plt Count 286 (150-400) X10^3/uL Neut % (Auto) 57.7 (50-75) % Lymph % (Auto) 31.1 (25-40) % Sunflower % (Auto) 8.3 (3-14) % Eos % (Auto) 2.3 (2-4) % Baso % (Auto) 0.6 (0-2) % Neut # (Auto) 4000 (6832-2840) /uL Lymph # (Auto) 2200 (3410-8510) /uL Sunflower # (Auto) 600 (0-900) /uL Eos # (Auto) 200 (0-450) /uL Baso # (Auto) 0 (0-100) /uL VBG pH 7.41 (7.33-7.43) VBG pCO2 36.6 L (45-50) mmHg VBG pO2 45 (35-45) mmHg VBG HCO3 23 L (24-28) mmol/L VBG Total CO2 22 L (24-29) mmol/L VBG O2 Saturation 82 H (70-75) % VBG Base Excess -1.1 L (0-4) mmol/L FiO2 % 21.0 % % Sodium 132 L (137-145) mmol/L Potassium 4.0 (3.4-5.1) mmol/L Chloride 98 (98-107) mmol/L Carbon Dioxide 23 (22-32) mmol/L BUN 16 (9-20) mg/dL Creatinine 1.01 (0.66-1.25) mg/dL Estimated GFR > 60 (>60) mL/min BUN/Creatinine Ratio 15.8 (6-22) Glucose 352 H (70-100) mg/dL Lactate 2.0 (0.7-2.1) mmol/L Calcium 9.4 (8.4-10.2) mg/dL Total Bilirubin 1.4 H (0.2-1.3) mg/dL AST 33 (17-59) IU/L ALT 23 (<50) IU/L Alkaline Phosphatase 88 (38-126) U/L Total Protein 7.6 (6.3-8.2) g/dL Albumin 4.7 (3.5-5.0) g/dL Globulin 2.9 (1.7-4.1) g/dL Albumin/Globulin Ratio 1.6 (1.0-2.8) Lipase 39 (23-300) U/L U Opiates 300ng/mL cut Negative (Negative) Ur Oxycodone Screen Negative (Negative) Urine Methadone Screen Negative (Negative) Ur Barbiturates Screen Negative (Negative) U Tricyclic Antidepress Negative (Negative) Ur Phencyclidine Scrn Negative (Negative) Ur Amphetamines Screen Negative (Negative) U Methamphetamines Scrn Negative (Negative) Ur MDMA Scrn (Ecstasy) Negative (Negative) U Benzodiazepines Scrn Negative (Negative) Urine Cocaine Screen Negative (Negative) U Marijuana (THC) Screen Negative (Negative) Urine pH Normal (Normal) Urine Specific Edgar Normal (Normal) Ethyl Alcohol < 10 ( - 10) mg/dL Ketones 0.32 H (<0.27) mmol/L Ur Creatinine Normal (Normal) Urine Dip Bedside Urine Glucose 1000 mg/dl Bedside Urine Bilirubin - Negative Bedside Urine Ketone - Negative Urine Specific Edgar 1.010 Bedside Urine Occult Blood - Negative Bedside Urine pH 6.0 Bedside Urine Protein - Negative Bedside Urine Urobilinogen - Negative Bedside Urine Nitrite - Negative Bedside Urine Leukocytes - Negative Esterase Point of care testing: Urine Dip Bedside Urine Glucose 1000 mg/dl Bedside Urine Bilirubin - Negative Bedside Urine Ketone - Negative Urine Specific Edgar 1.010 Bedside Urine Occult Blood - Negative Bedside Urine pH 6.0 Bedside Urine Protein - Negative Bedside Urine Urobilinogen - Negative Bedside Urine Nitrite - Negative Bedside Urine Leukocytes - Negative Esterase <Priyank Ponce, DO - Last Filed: 07/07/24 20:48> Lab Data Labs: Lab Results 07/07/24 07/07/24 07/07/24 Range/Units 15:10 16:14 18:36 WBC 7.0 (4.5-11.0) X10^3/uL RBC 5.46 (4.5-5.9) X10^6/uL Hgb 15.7 (13.5-17.5) g/dL Hct 46.9 (41-53) % MCV 85.8 (80-100) fL MCH 28.8 (26-34) PG MCHC 33.6 (30-36) % RDW 14.2 (11.6-14.8) % Plt Count 286 (150-400) X10^3/uL Neut % (Auto) 57.7 (50-75) % Lymph % (Auto) 31.1 (25-40) % Sunflower % (Auto) 8.3 (3-14) % Eos % (Auto) 2.3 (2-4) % Baso % (Auto) 0.6 (0-2) % Neut # (Auto) 4000 (6038-0287) /uL Lymph # (Auto) 2200 (4379-7641) /uL Sunflower # (Auto) 600 (0-900) /uL Eos # (Auto) 200 (0-450) /uL Baso # (Auto) 0 (0-100) /uL VBG pH 7.41 (7.33-7.43) VBG pCO2 36.6 L (45-50) mmHg VBG pO2 45 (35-45) mmHg VBG HCO3 23 L (24-28) mmol/L VBG Total CO2 22 L (24-29) mmol/L VBG O2 Saturation 82 H (70-75) % VBG Base Excess -1.1 L (0-4) mmol/L FiO2 % 21.0 % % Sodium 132 L (137-145) mmol/L Potassium 4.0 (3.4-5.1) mmol/L Chloride 98 (98-107) mmol/L Carbon Dioxide 23 (22-32) mmol/L BUN 16 (9-20) mg/dL Creatinine 1.01 (0.66-1.25) mg/dL Estimated GFR > 60 (>60) mL/min BUN/Creatinine Ratio 15.8 (6-22) Glucose 352 H (70-100) mg/dL Lactate 2.0 (0.7-2.1) mmol/L Calcium 9.4 (8.4-10.2) mg/dL Total Bilirubin 1.4 H (0.2-1.3) mg/dL AST 33 (17-59) IU/L ALT 23 (<50) IU/L Alkaline Phosphatase 88 (38-126) U/L Total Protein 7.6 (6.3-8.2) g/dL Albumin 4.7 (3.5-5.0) g/dL Globulin 2.9 (1.7-4.1) g/dL Albumin/Globulin Ratio 1.6 (1.0-2.8) Lipase 39 (23-300) U/L U Opiates 300ng/mL cut Negative (Negative) Ur Oxycodone Screen Negative (Negative) Urine Methadone Screen Negative (Negative) Ur Barbiturates Screen Negative (Negative) U Tricyclic Antidepress Negative (Negative) Ur Phencyclidine Scrn Negative (Negative) Ur Amphetamines Screen Negative (Negative) U Methamphetamines Scrn Negative (Negative) Ur MDMA Scrn (Ecstasy) Negative (Negative) U Benzodiazepines Scrn Negative (Negative) Urine Cocaine Screen Negative (Negative) U Marijuana (THC) Screen Negative (Negative) Urine pH Normal (Normal) Urine Specific Edgar Normal (Normal) Ethyl Alcohol < 10 ( - 10) mg/dL Ketones 0.32 H (<0.27) mmol/L Ur Creatinine Normal (Normal) Urine Dip Bedside Urine Glucose 1000 mg/dl Bedside Urine Bilirubin - Negative Bedside Urine Ketone - Negative Urine Specific Edgar 1.010 Bedside Urine Occult Blood - Negative Bedside Urine pH 6.0 Bedside Urine Protein - Negative Bedside Urine Urobilinogen - Negative Bedside Urine Nitrite - Negative Bedside Urine Leukocytes - Negative Esterase Point of care testing: Urine Dip Bedside Urine Glucose 1000 mg/dl Bedside Urine Bilirubin - Negative Bedside Urine Ketone - Negative Urine Specific Edgar 1.010 Bedside Urine Occult Blood - Negative Bedside Urine pH 6.0 Bedside Urine Protein - Negative Bedside Urine Urobilinogen - Negative Bedside Urine Nitrite - Negative Bedside Urine Leukocytes - Negative Esterase MDM Narrative Medical decision making narrative: 1800: (Dr. Ponce) Received sign-out from morning provider, patient history of diabetes type 1 as well as alcohol abuse came in complaining of possible DKA, lab work unremarkable for this but does show some hyperglycemia, patient pending possible transfer/discharge to inpatient rehab at [facility] 2043: Patient was medically cleared, did have virtual visit with [facility], patient will follow up outpatient at [facility] tomorrow morning for inpatient rehab Discharge Plan Departure Patient Disposition: Home Clinical Impression: ETOH abuse, Hyperglycemia Activity Restrictions/Additional Instructions: Please follow up/go to [facility] rehab for your alcohol abuse Please read the discharge instructions sheet carefully and bring all papers to all doctor follow-up visits, as it may contain information that your doctor may want to see. Disease processes change and evolve, if your symptoms worsen or if you develop any new symptoms that are concerning to you please return for evaluation. Your evaluation today does not show any evidence of any life- threatening/serious illnesses requiring admission to the hospital or surgery. Please follow-up with your doctor for re-evaluation in approximately 1 day. Seek immediate medical attention for any worrisome symptoms. *If you do not have a primary care provider please contact the [facility] Resource line at [phone]. They will ask some questions about your medical history and help get you set up with a doctor in the community. Prescriptions: No Action hydroxyzine HCl 25 mg tablet 25 mg PO 4XD (DME) Omnipod 5 G6 Intro Kit (Gen 5) Cartridge See Rx Instructions .ROUTE ONCE Qty: 1 Rx Instructions: As directed (DME) Omnipod 5 G6 Pods (Gen 5) Cartridge See Rx Instructions .ROUTE Q3D Qty: 5 Rx Instructions: As directed gabapentin 300 mg capsule 600 mg PO TID Qty: 180 0RF Rx Instructions: PT RX IS CHANGED TO 2-300MG TID PLEASE FILL PT IS OUT. insulin glargine [Lantus Solostar U-100 Insulin] 100 unit/mL (3 mL) insulin pen 25 unit SUBCUT DAILY lamotrigine 25 mg tablet 50 mg PO DAILY clonidine HCl 0.1 mg tablet 0.1 mg PO DAILY insulin aspart U-100 [Novolog U-100 Insulin aspart] 100 unit/mL solution 1 sliding scale dose SUBCUT BEDTIME PRN Patient Comments: [NO ORIGINAL SIG] buspirone 10 mg tablet 10 mg PO BID trazodone 50 mg tablet 50 mg PO BEDTIME duloxetine 40 mg capsule,delayed release(DR/EC) 40 mg PO DAILY methylprednisolone [Medrol (Douglas)] 4 mg tablets,dose pack See Rx Instructions PO PER PKG DIR Qty: 21 0RF Rx Instructions: PO PER PKG DIR Referrals: Radha Angela ARNP, RN [Primary Care Provider] - Stand Alone Forms: Patient Portal/API/Survey
[2024-07-07 17:35] LABS: Ketones (Beta-Hydroxybutyrate) 0.32 mmol/L (<0.27)
--- NOTE | 2024-07-07 17:35 | PC.NURSE ---
Patient interested in self reporting to [facility], this RN established contact and patient is currently having phone interview
[2024-07-07 19:00] LABS: Ur Creatinine Normal (Normal); Ur Specific Gravity Normal (Normal); Urine Amphetamines Negative (Negative); Urine Barbiturates Negative (Negative); Urine Benzodiazepines Negative (Negative); Urine Cocaine Negative (Negative); Urine MDMA Negative (Negative); Urine Methadone Negative (Negative); Urine Methamphetamines Negative (Negative); Urine Opiates Negative (Negative); Urine Oxycodone Negative (Negative); Urine Phencyclidine Negative (Negative); Urine THC Negative (Negative); Urine Tricyclic Antidepressant Negative (Negative); Urine pH Normal (Normal)
[2024-07-07] MEDS: LORazepam 0.5 MG TABLET 2 MG PO (21:03)
--- NOTE | 2024-07-10 19:29 | CM.SWNOTE ---
ED TIMBER MANAGEMENT PROFESSOR Assessment Note: Pt is a 44yo male, resident of [place], presented to the ED for ETOH withdrawal/medical clearance for detox. Pt lives in a house with his parents. Pt's Primary Care Provider is BANG Castro and insurance is Medicare and Medicaid. Reviewed chart and discussed with multidisciplinary team pt's medical status and initial discharge needs. TIMBER MANAGEMENT PROFESSOR consulted to assist with detox placement if available. TIMBER MANAGEMENT PROFESSOR called [facility], it is identified that they are on an admission hold and are not reviewing patients until 7pm on 07/10/24.' TIMBER MANAGEMENT PROFESSOR called [facility], it is identified that they have three beds available and are ready to screen patients. TIMBER MANAGEMENT PROFESSOR entered room to meet with patient, introduced self and role. Pt endorses he is seeking medical clearance because his Sodium and Glucose levels have been a barrier to obtaining detox (he has been trying for the past few days). Patient explains he has been drinking about 4 shots daily the past few days and is ultimately hopeful for an residential ALISHA treatment at [facility]. Pt states he is hopeful to go to [facility] for a ALISHA assessment and be referred to [facility]. If he does not meet criteria for [facility], he plans to reach out to SUDP at [facility] who recently completed a ALISHA assessment for him to have that sent to [facility] as well. TIMBER MANAGEMENT PROFESSOR sent referral to [facility] for review for 07/11/2024 via fax. Plan: Pt to discharge home with parents, will self-refer to [facility] vs. follow up with [facility] for ALISHA referral to [facility]. RHETT VarelaSW
== END 2024-07-07 21:08 | disposition home or self-care (01) ==
PROVIDERS: Emergency Medicine; Emergency Provider Student in an Organized Health Care Education/Training Program; PCP Nurse Practitioner Family
DX: F10.10 Alcohol abuse, uncomplicated (principal); Y90.0 Blood alcohol level of less than 20 mg/100 ml; E10.65 Type 1 diabetes mellitus with hyperglycemia
CPT/HCPCS: 36415; 80053; 80305; 80320; 81003; 82009; 82805; 83605; 83690; 85025; 87040; 93005; 96361; 96374; 99284; J2060

== ENCOUNTER 2024-07-10 11:11 | Emergency (ER) | payer MEDICARE, MEDICAID, SELFPAY ==
[2023-09-20 13:15] VITALS: BMI 19.1
[2024-07-10] VITALS (14 sets, daily range): BP systolic 105–141; BP diastolic 66–98; PULSE 66–101; RESP 15–25; TEMP 36.7; O2SAT 98–100
--- NOTE | 2024-07-10 11:39 | EKG_ITS ---
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
[2024-07-10 11:54] LABS: Add Manual Diff / Slide Review NO; Basophils Absolute Auto 100 /uL (0-100); Basophils Percent Auto 0.8 % (0-2); Eosinophils Absolute Auto 200 /uL (0-450); Eosinophils Percent Auto 3.7 % (2-4); Hemoglobin 14.7 g/dL (13.5-17.5); Lymphocytes Absolute Auto 2100 /uL (1100-4500); Lymphocytes Percent Auto 31.7 % (25-40); Mean Corpuscular HGB Conc 33.4 % (30-36); Mean Corpuscular Hemoglobin 28.8 PG (26-34); Mean Corpuscular Volume 86.1 fL (80-100); Monocytes Absolute Auto 600 /uL (0-900); Neutrophils Absolute Auto 3600 /uL (1500-7000); Neutrophils Percent Auto 54.8 % (50-75); Platelet Count 262 X10^3/uL (150-400); Red Blood Cell Count 5.11 X10^6/uL (4.5-5.9); Red Cell Distribution Width 14.1 % (11.6-14.8); White Blood Cell Count 6.5 X10^3/uL (4.5-11.0)
[2024-07-10 11:59] LABS: Alanine Aminotransferase 16 IU/L (<50); Albumin 4.4 g/dL (3.5-5.0); Albumin Globulin Ratio 1.7 (1.0-2.8); Alkaline Phosphatase 83 U/L (38-126); Aspartate Aminotransferase 21 IU/L (17-59); BUN Creatinine Ratio 15.4 (6-22); Bilirubin Total 0.5 mg/dL (0.2-1.3); Blood Urea Nitrogen 14 mg/dL (9-20); Calcium 9.7 mg/dL (8.4-10.2); Carbon Dioxide 24 mmol/L (22-32); Chloride 103 mmol/L (98-107); Estimated Glomerular Filt Rate > 60 mL/min (>60); Ethanol (ETOH) < 10 mg/dL; Globulin 2.6 g/dL (1.7-4.1); Glucose 322 mg/dL (70-100); HEMOLYSIS 20 (0-50); Potassium 4.3 mmol/L (3.4-5.1); Sodium 136 mmol/L (137-145)
--- NOTE | 2024-07-10 13:24 | PC.NURSE ---
Pt states that he is withdrawing from alcohol. CIWA 0. Dr Rajput notified. New orders received.
[2024-07-10] MEDS: PHENobarbital 65 MG/ML VIAL 260 MG IV (13:26)
--- NOTE | 2024-07-10 14:19 | ED.MEDCLEAR ---
HPI - Medical Clearance General Chief complaint: Medical Clearance Stated complaint: Sodium levels low Time Seen by Provider: 07/10/24 13:14 Source: patient, RN notes reviewed and old records reviewed Mode of arrival: Ambulatory History of Present Illness HPI Narrative: 44-year-old male insulin-dependent diabetic, history of alcohol abuse presents stating stranding into rehab recover from alcohol reports [facility] refused entry for low-sodium and 2 high blood glucose he was diabetic type 1 uses insulin pump and CGM. Patient presents today for labs for medical clearance states he would like to go to [facility]. Patient states they have beds but no intake today. Scratching labs states last drink was about 10-14 hours ago. Feeling anxious and shaky but no other withdrawal symptoms. He states he has not had any other symptoms denies any other issues. He notes his glucose is tend to run high partially because of alcohol intake but also he describes anxiety. Patient's CGM does correlate with the point of care glucose here. Patient states he has not had any issues with his insulin pump. Related Information Home Medications Medication Instructions Recorded Confirmed insulin glargine 100 unit/mL (3 25 unit SUBCUT DAILY 02/24/21 03/04/24 mL) subcutaneous pen (Lantus Solostar U-100 Insulin) hydroxyzine HCl 25 mg tablet 25 mg PO 4XD 01/12/24 03/04/24 insulin pump cart,automated,BT #5 ea 01/12/24 03/04/24 (Omnipod 5 G6 Pods (Gen 5) subcutaneous cartridge) insulin pump cartridge,automated #1 ea 01/12/24 03/04/24 dose,BT with controller subcutaneous (Omnipod 5 G6 Intro Kit (Gen 5) subcutaneous cartridge with controller) buspirone 10 mg tablet 10 mg PO BID 03/04/24 03/04/24 clonidine HCl 0.1 mg tablet 0.1 mg PO DAILY 03/04/24 03/04/24 duloxetine 40 mg capsule,delayed 40 mg PO DAILY 03/04/24 03/04/24 release insulin aspart U-100 100 unit/mL 1 sliding scale dose SUBCUT 03/04/24 03/04/24 subcutaneous solution (Novolog BEDTIME PRN U-100 Insulin aspart) lamotrigine 25 mg tablet 50 mg PO DAILY 03/04/24 03/04/24 trazodone 50 mg tablet 50 mg PO BEDTIME 03/04/24 03/04/24 Previous Rx's Medication Instructions Recorded methylprednisolone 4 mg tablets in See Rx Instructions PO PER PKG DIR 03/04/24 a dose pack (Medrol (Douglas)) radiculopathy #21 ea gabapentin 300 mg capsule 600 mg (2 x 300 mg) PO TID #180 03/19/24 caps chlordiazepoxide HCl 25 mg capsule 25 mg PO Q12H #4 caps 07/10/24 Allergies Allergy/AdvReac Type Severity Reaction Status Date / Time No Known Drug Allergies Allergy Verified 03/04/24 11:29 Review of Systems Review of Systems ROS Unobtainable: All systems reviewed & are unremarkable except as noted in HPI and below Patient History Medical History Tobacco abuse HNP (herniated nucleus pulposus), cervical Diabetes Alcoholism Post traumatic stress disorder (PTSD) Bipolar affective disorder, current episode mild Surgical History History of cholecystectomy History of lumbar surgery Family History Father Cancer Mother Heart attack Social History household members: family Smoking Status: Current every day smoker Smoking Status: Current every day smoker tobacco type: cigarettes and vaping alcohol intake frequency: 0-2 drinks per day Alcohol type: beer, wine, hard liquor and other Exam Narrative Exam Narrative: GENERAL: Alert and oriented x three, male in mild distress HEENT: Head normocephalic, atraumatic, EOMI, pupils reactive, face symmetric, moist mucous membranes NECK: Supple, full range of motion CARDIOVASCULAR: Regular rate and rhythm without murmurs, rubs or gallops. No edema. RESPIRATORY: Breath sounds equal bilaterally, no wheezes rales or rhonchi. ABDOMEN: Soft, nontender. Normoactive bowel sounds all 4 quadrants. No guarding or rebound, rigidity, no mass : No CVA tenderness EXTREMITIES: Normal range of motion, no clubbing or edema. Neurovascularly intact. No tremor. NEUROLOGICAL: Cranial nerves II through XII grossly intact. Moving all extremities SKIN: Warm, dry, no petechiae, no rashes or lesions. Initial Vital Signs Initial Vital Signs: Vital Signs Pulse Rate 101 H 07/10/24 11:28 Pulse Oximetry 99 07/10/24 11:28 MDM - Medical Clearance Lab Data 07/10/24 11:30 07/10/24 11:30 Labs: Lab Results 07/10/24 07/10/24 Range/Units 11:30 15:20 WBC 6.5 (4.5-11.0) X10^3/uL RBC 5.11 (4.5-5.9) X10^6/uL Hgb 14.7 (13.5-17.5) g/dL Hct 44.0 (41-53) % MCV 86.1 (80-100) fL MCH 28.8 (26-34) PG MCHC 33.4 (30-36) % RDW 14.1 (11.6-14.8) % Plt Count 262 (150-400) X10^3/uL Neut % (Auto) 54.8 (50-75) % Lymph % (Auto) 31.7 (25-40) % [place] % (Auto) 9.0 (3-14) % Eos % (Auto) 3.7 (2-4) % Baso % (Auto) 0.8 (0-2) % Neut # (Auto) 3600 (8007-5541) /uL Lymph # (Auto) 2100 (5556-7930) /uL [place] # (Auto) 600 (0-900) /uL Eos # (Auto) 200 (0-450) /uL Baso # (Auto) 100 (0-100) /uL Sodium 136 L (137-145) mmol/L Potassium 4.3 (3.4-5.1) mmol/L Chloride 103 (98-107) mmol/L Carbon Dioxide 24 (22-32) mmol/L BUN 14 (9-20) mg/dL Creatinine 0.91 (0.66-1.25) mg/dL Estimated GFR > 60 (>60) mL/min BUN/Creatinine Ratio 15.4 (6-22) Glucose 322 H (70-100) mg/dL Calcium 9.7 (8.4-10.2) mg/dL Total Bilirubin 0.5 (0.2-1.3) mg/dL AST 21 (17-59) IU/L ALT 16 (<50) IU/L Alkaline Phosphatase 83 (38-126) U/L Total Protein 7.0 (6.3-8.2) g/dL Albumin 4.4 (3.5-5.0) g/dL Globulin 2.6 (1.7-4.1) g/dL Albumin/Globulin Ratio 1.7 (1.0-2.8) TSH 1.10 (0.47-4.68) uIU/mL U Opiates 300ng/mL cut Negative (Negative) Ur Oxycodone Screen Negative (Negative) Urine Methadone Screen Negative (Negative) Ur Barbiturates Screen Negative (Negative) U Tricyclic Antidepress Negative (Negative) Ur Phencyclidine Scrn Negative (Negative) Ur Amphetamines Screen Negative (Negative) U Methamphetamines Scrn Negative (Negative) Ur MDMA Scrn (Ecstasy) Negative (Negative) U Benzodiazepines Scrn Positive H (Negative) Urine Cocaine Screen Negative (Negative) U Marijuana (THC) Screen Negative (Negative) Urine pH Normal (Normal) Urine Specific [place] Normal (Normal) Ethyl Alcohol < 10 ( - 10) mg/dL Ur Creatinine Normal (Normal) Point of Care Testing Glucose POC 199 ECG Data Attestation: I personally reviewed and interpreted this ECG as follows: Interpretation: EKG shows sinus rhythm rate of 90 HI 184 QRS is 76 QTC of 401, no acute ST changes. [facility] Narrative Medical decision making narrative: Point of care glucose here was 260. Labs show a CBC with normal white count hemoglobin and platelets. Chemistries show sodium 136 otherwise normal electrolytes, normal bicarbonate creatinine 0.91 glucose is 322 this is consistent with the patient's priors into January of 2024 and frequently in 2021 in 2020. Anion gap is 9. ETOH is negative. Patient's chemistry reads as 1361. low the reference range but important to note that patient has hyperglycemia and there is a known falls low sodium and a calculator for correction that would show that patient's sodium is 140 using Scruggs formula and 141 using Neelam olson MD calculator. Patient was also given a print out of the corrected sodium formula with patient's information and put it. Patient is medically cleared. Did ask for rapid drug screen that have available. Rapid drug screen is positive for benzodiazepine patient has had phenobarb in the department but no benzos. Patient has concern for acute withdrawal. Patient's last dose was in last 10-14 hours. Patient was given a dose of phenobarbital. CIWA is 0. Patient had heart rate in the 90s 100 earlier improved to the 90s. Patient has not been hypertensive. Afebrile. Patient does ask for privacy as parents are not aware that he was recently been drinking. Patient was agreeable to meet with [employer]. Patient was not interested in attending other facilities. He was felt safe and appropriate for discharge. Discharge Plan Departure Patient Disposition: Home Clinical Impression: Desire for detoxification, Alcohol abuse with withdrawal Activity Restrictions/Additional Instructions: Please follow up with [facility], a copy of your labs including the calculation to correct your sodium. Your sodium is falsely low on your lab work secondary to hyperglycemia. This is a known medical issue in they are calculator available through MD calc or online that show this calculation. Your corrected sodium for your hyperglycemia is 140 or 141 depending on which formula use. A copy of this was provided to you as well with your labs input into the formula. If you are having difficulty with placement at [facility] there are other facilities available that you could potentially go to. You can take Librium as prescribed. Prescription sent to [facility] in [place]. Please return if you have rapidly worsening symptoms any hallucinations, seizure-like activity, worsening symptoms or other new or concerning changes. Prescriptions: New chlordiazepoxide HCl 25 mg capsule 25 mg PO Q12H Qty: 4 0RF No Action hydroxyzine HCl 25 mg tablet 25 mg PO 4XD (DME) Omnipod 5 G6 Intro Kit (Gen 5) Cartridge See Rx Instructions .ROUTE ONCE Qty: 1 Rx Instructions: As directed (DME) Omnipod 5 G6 Pods (Gen 5) Cartridge See Rx Instructions .ROUTE Q3D Qty: 5 Rx Instructions: As directed gabapentin 300 mg capsule 600 mg PO TID Qty: 180 0RF Rx Instructions: PT RX IS CHANGED TO 2-300MG TID PLEASE FILL PT IS OUT. insulin glargine [Lantus Solostar U-100 Insulin] 100 unit/mL (3 mL) insulin pen 25 unit SUBCUT DAILY lamotrigine 25 mg tablet 50 mg PO DAILY clonidine HCl 0.1 mg tablet 0.1 mg PO DAILY insulin aspart U-100 [Novolog U-100 Insulin aspart] 100 unit/mL solution 1 sliding scale dose SUBCUT BEDTIME PRN Patient Comments: [NO ORIGINAL SIG] buspirone 10 mg tablet 10 mg PO BID trazodone 50 mg tablet 50 mg PO BEDTIME duloxetine 40 mg capsule,delayed release(DR/EC) 40 mg PO DAILY methylprednisolone [Medrol (Douglas)] 4 mg tablets,dose pack See Rx Instructions PO PER PKG DIR Qty: 21 0RF Rx Instructions: PO PER PKG DIR Referrals: Radha Angela ARNP, RN [Primary Care Provider] - Stand Alone Forms: Patient Portal/API/Survey
[2024-07-10] MEDS: NICOTINE 21 MG PATCH TOP (14:34)
[2024-07-10 15:32] LABS: Ur Creatinine Normal (Normal); Ur Specific Gravity Normal (Normal); Urine Amphetamines Negative (Negative); Urine Barbiturates Negative (Negative); Urine Benzodiazepines Positive (Negative); Urine Cocaine Negative (Negative); Urine MDMA Negative (Negative); Urine Methadone Negative (Negative); Urine Methamphetamines Negative (Negative); Urine Opiates Negative (Negative); Urine Oxycodone Negative (Negative); Urine Phencyclidine Negative (Negative); Urine THC Negative (Negative); Urine Tricyclic Antidepressant Negative (Negative); Urine pH Normal (Normal)
--- NOTE | 2024-07-10 22:41 | PC.NURSE ---
pt called at 2156 and explained that he was told by social insurance administrator and nurse that his labs, and provider note from this visit have been faxed to [facility] so they can start the intake process for detox. He stated that when he called [facility] he spoke with a nurse by the name of Linda and she said that they never did receive any paperwork from the ER so they are unable to initiate the intake. This SOLAR FABRICATION TECHNICIAN faxed a facesheet, labs, and provider note to [facility] at 2214 and received faxed confirmation. I called [facility] at 2233 to confirm with the intake nurse that they did receive the faxed paperwork and can now start the intake. The intake nurse did confirm with me that she received it and was sending it to their provider to review. I then called the pt back at 2235 to tell him that [facility] did receive his chart and are beginning to review it.
== END 2024-07-10 15:55 | disposition home or self-care (01) ==
PROVIDERS: Emergency Provider Emergency Medicine; PCP Nurse Practitioner Family
DX: F10.139 Alcohol abuse with withdrawal, unspecified (principal); E10.9 Type 1 diabetes mellitus without complications; Z79.4 Long term (current) use of insulin; F17.210 Nicotine dependence, cigarettes, uncomplicated
CPT/HCPCS: 80053; 80305; 80320; 82962; 84443; 85025; 93005; 96374; 99284; J2560